=== PATIENT | male | born 1970 | race Caucasian/White ===

== ENCOUNTER 2016-11-08 16:47 | Inpatient (IN) | payer MEDICAID ==
[~2016-11-08] VITALS: Ht 185.4 cm; Wt 88.3 kg
[2016-11-08] MEDS ORDERED: SODIUM CHLORIDE 0.9% 1,000 ML IV ONE ×2 (17:03)
[2016-11-08] MEDS ORDERED: InsuLIN R (HUMAN) 100 UNITS in SODIUM CHL 0.9% 99 ML IV SCH (17:18)
[2016-11-08] MEDS ORDERED: DEXTROSE (50%) 50ML SYRG IV PRN (17:30)
[2016-11-08] MEDS: SODIUM CHLORIDE 0.9% 1,000 ML IV SCH ×2 (17:32→19:00)
[2016-11-08 18:02] LABS: Basophils # (auto) 0 uL; Basophils % (auto) 0.1 % (0.0-2.0); Eosinophils # (auto) 0 uL; Hematocrit 45.4 % (41.0-53.0); Hemoglobin 15.2 g/dL (13.5-17.5); Lymphocytes # (auto) 1.3 uL; Lymphocytes % (auto) 5.3 % (10.0-50.0); Mean Corpuscular Hemoglobin 29.4 pg (28.0-32.0); Mean Corpuscular Hgb Conc. 33.4 g/dL (32.0-36.0); Mean Platelet Volume 10.4 fL (7.4-10.4); Monocytes # (auto) 1.6 uL; Monocytes % (auto) 6.2 % (0.0-12.0); Neutrophils # (auto) 22.3 uL; Neutrophils % (auto) 88.4 % (37.0-80.0); Platelet Count (auto) 386 10^3/uL (140-450); Red Cell Distribution Width 12.4 % (11.6-16.0); SUSPECT VIEW TRANSMISSION; White Blood Cell 25.2 10^3/uL (4.4-10.8)
[2016-11-08] MEDS: ACCU-CHEK COMFORT CURVE STRIP VI SCH ×6 (18:34→23:30)
[2016-11-08 18:37] LABS: Lactic Acid w/Reflex 5.2 mmol/L (0.4-2.0)
[2016-11-08 18:39] LABS: REFLEX LACTIC ACID YES OR NO YES
[2016-11-08 18:50] LABS: Albumin 3.4 g/dL (3.4-5.0); BUN/Creatinine Ratio 18.1; Bilirubin, Total 0.8 mg/dL (0.2-1.0); Calcium 8.6 mg/dL (8.5-10.1); Magnesium 2.5 mg/dL (1.6-2.6); Total Protein 7.4 g/dL (6.4-8.2)
[2016-11-08 18:51] LABS: Potassium 5.8 mmol/L (3.5-5.1)
[2016-11-08] MEDS ORDERED: InsuLIN REG 1unit/0.01ml Soln (100units/ml) IV ONE (19:00)
[2016-11-08] MEDS ORDERED: cloNIDine 0.2 mg/24hr 7DAY PATCH TD ONE (19:00)
[2016-11-08 20:46] LABS: Urine Bilirubin Negative (Negative); Urine Blood Negative /uL (Negative); Urine Color Yellow (Yellow); Urine Hyaline Cast MOD /lpf (0 - 2); Urine Mucus FEW (None Seen); Urine Nitrite Negative (Negative); Urine RBC 1 /hpf (0 - 3); Urine Squamous Epithelial Cell FEW /hpf (<5); Urine Urobilinogen Normal (Negative)
[2016-11-08 20:47] LABS: Urine Glucose 4+ mg/dL (Normal); Urine Ketone 1+ (Negative)
[2016-11-08] MEDS ORDERED: SODIUM CHLORIDE 0.9% 1,000 ML IV SCH (21:18)
[2016-11-09] MEDS ORDERED: PIPERACILLIN-TAZOB 2.25GM 50 ML IV ONE
[2016-11-09] MEDS ORDERED: MORPHINE SULF INJ 2 MG/ML SYRINGE 1ML IV PRN
[2016-11-09] MEDS ORDERED: VANCOMYCIN PER PHARMACY 0 MG IV SCH
[2016-11-09] MEDS ORDERED: NITROGLYCERIN 0.4 MG SL TAB SL PRN
[2016-11-09] MEDS ORDERED: ONDANSETRON HCL 4 MG/2 ML VIAL IV PRN
[2016-11-09] MEDS ORDERED: DEXTROSE (50%) 50ML SYRG IV PRN
[2016-11-09] MEDS ORDERED: ASPirin 81 mg TAB PO ONE
[2016-11-09] MEDS ORDERED: VANCOMYCIN 1GM/250ML D5W 250 ML IV ONE (00:15)
[2016-11-09] MEDS ORDERED: ATENOLOL 25 MG TAB PO ONE (00:15)
[2016-11-09] MEDS ORDERED: cloNIDine HCL 0.1 MG TAB PO PRN (00:15)
[2016-11-09] MEDS: ACCU-CHEK COMFORT CURVE STRIP VI SCH ×18 (00:30→21:31)
[2016-11-09 01:16] LABS: BUN/Creatinine Ratio 21.8; Calcium 7.6 mg/dL (8.5-10.1); Potassium 3.6 mmol/L (3.5-5.1)
[2016-11-09] MEDS ORDERED: InsuLIN REG 1unit/0.01ml Soln (100units/ml) ONE (01:54)
[2016-11-09] MEDS ORDERED: SODIUM CHLORIDE 0.9% 1,000 ML IV SCH (03:52)
[2016-11-09 04:36] LABS: Albumin 3.1 g/dL (3.4-5.0); BUN/Creatinine Ratio 24.4; Bilirubin, Total 0.5 mg/dL (0.2-1.0); Calcium 7.8 mg/dL (8.5-10.1); Potassium 3.7 mmol/L (3.5-5.1); Total Protein 6.7 g/dL (6.4-8.2)
[2016-11-09 05:44] LABS: Hematocrit 40.8 % (41.0-53.0); Hemoglobin 13.6 g/dL (13.5-17.5); Mean Corpuscular Hemoglobin 28.8 pg (28.0-32.0); Mean Corpuscular Hgb Conc. 33.3 g/dL (32.0-36.0); Mean Corpuscular Volume 86.5 fL (80.0-100.0); Mean Platelet Volume 8.8 fL (7.4-10.4); Platelet Count (auto) 344 10^3/uL (140-450); Red Cell Distribution Width 12.9 % (11.6-16.0); SUSPECT VIEW TRANSMISSION; White Blood Cell 19.7 10^3/uL (4.4-10.8)
[2016-11-09] MEDS: SODIUM CHLORIDE 0.9% 1,000 ML IV SCH ×3 (05:54→19:12)
[2016-11-09 05:58] LABS: Metamyelocytes % 0; Myelocytes % 0; Promyelocytes % 0; Reactive Lymphocytes 0
[2016-11-09 05:59] LABS: Hypersegmented Neutrophils Present; RBC Morphology Normal
[2016-11-09] MEDS: PIPERACILLIN-TAZOB 2.25GM 50 ML IV SCH ×4 (06:11→23:13)
[2016-11-09 07:24] LABS: Platelet Estimate Adequate
[2016-11-09] MEDS: LEVOTHYROXINE SODIUM 50 MCG TAB PO SCH (07:30)
[2016-11-09] MEDS ORDERED: ENOXAPARIN SOD 40 MG/0.4 ML SYRINGE SC SCH (10:00)
[2016-11-09] MEDS: ASPirin 81 mg TAB PO SCH (10:01)
[2016-11-09] MEDS: ATENOLOL 25 MG TAB PO SCH ×2 (10:02→21:26)
[2016-11-09] MEDS: ENOXAPARIN SOD 30 MG/0.3 ML SYRINGE SC SCH (10:02)
[2016-11-09] MEDS: LISINOPRIL 20 MG TAB PO SCH (10:02)
[2016-11-09 12:02] LABS: Amylase 48 U/L (25-115)
[2016-11-09 12:43] LABS: BUN/Creatinine Ratio 31.9; Calcium 7.8 mg/dL (8.5-10.1); Potassium 3.4 mmol/L (3.5-5.1)
[2016-11-09] MEDS ORDERED: INSULIN DETEMIR(LEVEMIR) 1unit/0.01ml Soln (100units/ml) SC SCH (15:30)
[2016-11-09] MEDS ORDERED: DEXTROSE (50%) 50ML SYRG IV ONE (15:45)
[2016-11-09] MEDS ORDERED: POTASSIUM CHL 20 Meq TABLET PO ONE (15:45)
[2016-11-09] MEDS ORDERED: INSULIN DETEMIR(LEVEMIR) 1unit/0.01ml Soln (100units/ml) SC ONE (16:30)
[2016-11-09] MEDS: InsuLIN REG 1unit/0.01ml Soln (100units/ml) SC SCH ×2 (16:55→21:36)
[2016-11-09 18:45] LABS: BUN/Creatinine Ratio 37.7; Calcium 7.6 mg/dL (8.5-10.1); Potassium 3.8 mmol/L (3.5-5.1)
[2016-11-09 20:30] VITALS: BP 104/55
[2016-11-09 21:30] VITALS: BP 104/55
[2016-11-10 00:48] VITALS: BP 104/55
[2016-11-10 00:49] LABS: BUN/Creatinine Ratio 33.6; Calcium 7.7 mg/dL (8.5-10.1)
[2016-11-10] MEDS ORDERED: VANCOMYCIN 1GM/250ML D5W 250 ML IV SCH (01:00)
[2016-11-10] MEDS ORDERED: INSLANTI SC (01:56)
[2016-11-10] MEDS ORDERED: INSREG3 IV (01:56)
[2016-11-10 05:00] VITALS: BP 139/70
[2016-11-10] MEDS: PIPERACILLIN-TAZOB 2.25GM 50 ML IV SCH ×3 (05:17→16:55)
[2016-11-10 05:53] LABS: Basophils # (auto) 0 uL; Basophils % (auto) 0.4 % (0.0-2.0); Eosinophils # (auto) 0 uL; Eosinophils % (auto) 0.1 % (0.0-7.0); Hematocrit 39.3 % (41.0-53.0); Hemoglobin 12.9 g/dL (13.5-17.5); Lymphocytes # (auto) 1.2 uL; Lymphocytes % (auto) 9.4 % (10.0-50.0); Mean Corpuscular Hemoglobin 28.7 pg (28.0-32.0); Mean Corpuscular Hgb Conc. 32.7 g/dL (32.0-36.0); Mean Corpuscular Volume 87.9 fL (80.0-100.0); Mean Platelet Volume 8.9 fL (7.4-10.4); Monocytes # (auto) 0.6 uL; Monocytes % (auto) 4.5 % (0.0-12.0); Neutrophils # (auto) 11.2 uL; Neutrophils % (auto) 85.6 % (37.0-80.0); Platelet Count (auto) 287 10^3/uL (140-450); Red Cell Distribution Width 13.1 % (11.6-16.0); White Blood Cell 13.1 10^3/uL (4.4-10.8)
[2016-11-10 06:13] LABS: Albumin 2.9 g/dL (3.4-5.0); BUN/Creatinine Ratio 36.4; Bilirubin, Total 0.5 mg/dL (0.2-1.0); Calcium 7.7 mg/dL (8.5-10.1); Phosphorus 1.7 mg/dL (2.5-4.90); Potassium 3.9 mmol/L (3.5-5.1); Total Protein 6.2 g/dL (6.4-8.2)
[2016-11-10] MEDS: ACCU-CHEK COMFORT CURVE STRIP VI SCH ×3 (06:18→16:46)
[2016-11-10] MEDS: LEVOTHYROXINE SODIUM 50 MCG TAB PO SCH (06:18)
[2016-11-10] MEDS: InsuLIN REG 1unit/0.01ml Soln (100units/ml) SC SCH ×3 (06:19→16:55)
[2016-11-10] MEDS: SODIUM CHLORIDE 0.9% 1,000 ML IV SCH ×3 (06:48→15:06)
[2016-11-10] MEDS ORDERED: INSULIN DETEMIR(LEVEMIR) 1unit/0.01ml Soln (100units/ml) SC SCH (07:00)
[2016-11-10 09:00] VITALS: BP 159/85
[2016-11-10] MEDS: ENOXAPARIN SOD 30 MG/0.3 ML SYRINGE SC SCH (09:33)
[2016-11-10] MEDS: ASPirin 81 mg TAB PO SCH (09:33)
[2016-11-10] MEDS: LISINOPRIL 20 MG TAB PO SCH (09:35)
[2016-11-10] MEDS: ATENOLOL 25 MG TAB PO SCH (09:35)
[2016-11-10] MEDS ORDERED: POTASSIUM PHOSPHATE 44 MEQ in SODIUM CHL 0.9% 250 ML IV ONE (11:00)
[2016-11-10] MEDS ORDERED: SODIUM PHOSPH 40 MEQ (30MMOL) IN NS 250 ML IV ONE (12:00)
[2016-11-10 13:00] VITALS: BP 154/91
[2016-11-10] MEDS ORDERED: INSULIN DETEMIR(LEVEMIR) 1unit/0.01ml Soln (100units/ml) SC ONE (15:30)
[2016-11-10 17:06] VITALS: BP 145/86
== END 2016-11-10 19:30 | disposition home or self-care (01) | DRG 420 ==
LOC: ER 16:53 → TELE 16:54 → TELE-EAST 11-09 20:30
PROVIDERS: ADMIT Nurse Practitioner; ATTEND Internal Medicine
DX: E10.10 Type 1 diabetes mellitus with ketoacidosis without coma (principal); N17.0 Acute kidney failure with tubular necrosis; G92 Toxic encephalopathy; E87.5 Hyperkalemia; D72.829 Elevated white blood cell count, unspecified; E03.9 Hypothyroidism, unspecified; E78.5 Hyperlipidemia, unspecified; E86.0 Dehydration; E10.22 Type 1 diabetes mellitus with diabetic chronic kidney disease; E83.39 Other disorders of phosphorus metabolism; F15.10 Other stimulant abuse, uncomplicated; I12.9 Hypertensive chronic kidney disease with stage 1 through stage 4 chronic kidney disease, or unspecified chronic kidney disease; N18.9 Chronic kidney disease, unspecified; Z91.19 Patient's noncompliance with other medical treatment and regimen
CPT/HCPCS: 36415; 36600; 51702; 70450; 71010; 74176; 76775; 80048; 80053; 80202; 80307; 81001; 82010; 82150; 82570; 82805; 82962; 83036; 83605; 83690; 83735; 83930; 84100; 84132; 84156; 84300; 84484; 85007; 85025; 85027; 87040; 93005; 96361; 96365; 96375; 99291; J1815; J2405; J2543

== ENCOUNTER 2017-08-13 01:48 | Inpatient (IN) | payer MEDICAID ==
[~2017-08-13] VITALS: Ht 185.4 cm; Wt 90.7 kg
[~2017-08-13 01:48] MED LIST: INSLANTI SC; INSREG3 IV; LEVO25TA6 PO
[2017-08-13] MEDS ORDERED: SODIUM CHLORIDE 0.9% 1,000 ML IV ONE (03:00)
[2017-08-13] MEDS ORDERED: InsuLIN REG 1unit/0.01ml Soln (100units/ml) IV ONE (03:00)
[2017-08-13 03:15] LABS: Albumin 2.7 g/dL (3.4-5.0); BUN/Creatinine Ratio 22.4; Calcium 9.2 mg/dL (8.5-10.1); Potassium 5.5 mmol/L (3.5-5.1); Total Protein 7.6 g/dL (6.4-8.2)
[2017-08-13 03:39] LABS: Basophils # (auto) 0.1 uL; Basophils % (auto) 0.4 % (0.0-2.0); Eosinophils # (auto) 0 uL; Eosinophils % (auto) 0.1 % (0.0-7.0); Hematocrit 43.6 % (41.0-53.0); Hemoglobin 14.5 g/dL (13.5-17.5); Lymphocytes # (auto) 0.6 uL; Lymphocytes % (auto) 4.2 % (10.0-50.0); Mean Corpuscular Hemoglobin 28.9 pg (28.0-32.0); Mean Corpuscular Hgb Conc. 33.1 g/dL (32.0-36.0); Mean Corpuscular Volume 87.4 fL (80.0-100.0); Monocytes # (auto) 0.3 uL; Monocytes % (auto) 2.2 % (0.0-12.0); Neutrophils % (auto) 93.1 % (37.0-80.0); Platelet Count (auto) 398 10^3/uL (140-450); Red Blood Cells 4.99 10^6/uL (4.5-5.90); Red Cell Distribution Width 12.3 % (11.8-14.3); White Blood Cell 15.1 10^3/uL (4.4-10.8)
[2017-08-13] MEDS ORDERED: InsuLIN R (HUMAN) 100 UNITS in SODIUM CHL 0.9% 99 ML IV SCH (04:14)
[2017-08-13] MEDS ORDERED: DEXTROSE (50%) 50ML SYRG IV PRN ×2 (04:15→16:45)
[2017-08-13] MEDS: SODIUM CHLORIDE 0.9% 1,000 ML IV SCH ×4 (04:41→16:54)
[2017-08-13] MEDS: ACCU-CHEK COMFORT CURVE STRIP VI SCH ×8 (04:41→15:40)
[2017-08-13 06:33] LABS: BUN/Creatinine Ratio 26.3; Calcium 8.5 mg/dL (8.5-10.1)
[2017-08-13 06:38] LABS: Phosphorus 3.4 mg/dL (2.5-4.90)
[2017-08-13 06:41] LABS: Alcohol, Urine < 3.0 mg/dL (0-5); Amphetamine Screen, Urine POSITIVE (NEGATIVE); Barbiturate Scree,Urine NEGATIVE (NEGATIVE); Benzodiazephine Screen, Urine NEGATIVE (NEGATIVE); Cannabinoid Screen, Urine NEGATIVE (NEGATIVE); Cocaine Screen, Urine NEGATIVE (NEGATIVE); Opiate Scree,Urine NEGATIVE (NEGATIVE); Phencyclidine Screen, Urine NEGATIVE (NEGATIVE)
[2017-08-13] MEDS ORDERED: NITROGLYCERIN 0.4 MG SL TAB SL PRN (06:45)
[2017-08-13] MEDS ORDERED: ONDANSETRON HCL 4 MG/2 ML VIAL IV PRN (06:45)
[2017-08-13] MEDS ORDERED: MORPHINE SULFATE 4 MG/ML SYR/VIAL IV PRN (07:15)
[2017-08-13 07:35] LABS: Urine Bacteria NONE SEEN /hpf (None Seen); Urine Blood Negative /uL (Negative); Urine Mucus FEW (None Seen); Urine Specific Gravity 1.021 (1.001-1.035); Urine WBC 4 /hpf (0 - 3)
[2017-08-13] MEDS ORDERED: cefTRIAXone 1GM/10ml IVPUSH 10 ML IV SCH (08:00)
[2017-08-13] MEDS ORDERED: LEVOTHYROXINE SODIUM 25 MCG TAB PO SCH (08:00)
[2017-08-13] MEDS ORDERED: SODIUM CHLORIDE 0.9% 1,000 ML IV SCH (08:14)
[2017-08-13] MEDS ORDERED: LISINOPRIL 10 MG TAB PO SCH (10:00)
[2017-08-13 10:43] LABS: Calcium 8.4 mg/dL (8.5-10.1); Potassium 3.9 mmol/L (3.5-5.1)
[2017-08-13 16:52] VITALS: BP 120/82
[2017-08-13] MEDS ORDERED: ACCU-CHEK COMFORT CURVE STRIP VI SCH (17:00)
[2017-08-13] MEDS ORDERED: InsuLIN REG 1unit/0.01ml Soln (100units/ml) SC SCH ×2 (17:00→22:00)
[2017-08-13 19:03] VITALS: BP 151/86
== END 2017-08-13 20:00 | disposition home or self-care (01) | DRG 469 ==
LOC: ER 01:48 → EDUNIT# 01:48 → EDBD 01:48 → TELE 01:49
PROVIDERS: ADMIT Nurse Practitioner Family; ATTEND Nurse Practitioner Family
DX: N17.9 Acute kidney failure, unspecified (principal); G93.41 Metabolic encephalopathy; E43 Unspecified severe protein-calorie malnutrition; E10.10 Type 1 diabetes mellitus with ketoacidosis without coma; R65.10 Systemic inflammatory response syndrome (SIRS) of non-infectious origin without acute organ dysfunction; E87.5 Hyperkalemia; E87.1 Hypo-osmolality and hyponatremia; D72.829 Elevated white blood cell count, unspecified; E03.9 Hypothyroidism, unspecified; F15.90 Other stimulant use, unspecified, uncomplicated; F17.210 Nicotine dependence, cigarettes, uncomplicated; I10 Essential (primary) hypertension; Z83.3 Family history of diabetes mellitus; Z91.14 Patient's other noncompliance with medication regimen; Z91.19 Patient's noncompliance with other medical treatment and regimen; Z79.899 Other long term (current) drug therapy; Z71.51 Drug abuse counseling and surveillance of drug abuser
CPT/HCPCS: 36415; 36600; 71045; 74176; 80048; 80053; 80307; 81001; 82010; 82805; 82962; 83605; 83735; 83880; 83930; 84100; 84443; 85025; 87040; 93005; 96361; 96365; 96372; 96375; J1815

== ENCOUNTER 2018-04-21 18:12 | Inpatient (IN) | payer MEDICAID ==
[~2018-04-21] VITALS: Ht 188 cm; Wt 86.0 kg
[2018-04-21] MEDS ORDERED: SODIUM CHLORIDE 0.9% 1,000 ML IV ONE (18:36)
[2018-04-21] MEDS ORDERED: InsuLIN REG 1unit/0.01ml Soln (100units/ml) IV ONE (19:00)
[2018-04-21] MEDS ORDERED: SODIUM CHLORIDE 0.9% 3,000 ML IV ONE (19:00)
[2018-04-21] MEDS ORDERED: NALOXONE HCL 0.4 MG/ML VIAL IV ONE (19:30)
[2018-04-21 19:43] LABS: Basophils # (auto) 0.2 uL; Basophils % (auto) 1.1 % (0.0-2.0); Eosinophils # (auto) 0 uL; Eosinophils % (auto) 0.1 % (0.0-7.0); Hematocrit 44.8 % (41.0-53.0); Lymphocytes # (auto) 0.6 uL; Lymphocytes % (auto) 3.5 % (10.0-50.0); Mean Corpuscular Hemoglobin 29.8 pg (28.0-32.0); Mean Corpuscular Hgb Conc. 33.5 g/dL (32.0-36.0); Mean Corpuscular Volume 88.8 fL (80.0-100.0); Monocytes # (auto) 0.8 uL; Monocytes % (auto) 4.1 % (0.0-12.0); Neutrophils # (auto) 16.6 uL; Neutrophils % (auto) 91.2 % (37.0-80.0); Platelet Count (auto) 330 10^3/uL (140-450); Red Blood Cells 5.04 10^6/uL (4.5-5.90); White Blood Cell 18.3 10^3/uL (4.4-10.8)
[2018-04-21 19:59] LABS: Albumin 3.2 g/dL (3.4-5.0); Calcium 8.6 mg/dL (8.5-10.1); Potassium 4.8 mmol/L (3.5-5.1)
[2018-04-21 20:08] LABS: BUN/Creatinine Ratio 28.6; Bilirubin, Total 0.5 mg/dL (0.2-1.0); Total Protein 7.7 g/dL (6.4-8.2)
[2018-04-21] MEDS ORDERED: LABETALOL HCL 5 MG/ML ML 20ML VIAL IV ONE (20:15)
[2018-04-21] MEDS ORDERED: cefTRIAXone 1GM/50ML D5W 50 ML IV ONE (20:45)
[2018-04-21] MEDS ORDERED: NITROGLYCERIN 0.4 MG SL TAB SL PRN (21:30)
[2018-04-21] MEDS ORDERED: TEMAZEPAM 15 MG CAP PO PRN (21:30)
[2018-04-21] MEDS ORDERED: MORPHINE SULFATE 4 MG/ML SYR/VIAL IV PRN (21:30)
[2018-04-21] MEDS ORDERED: ONDANSETRON HCL 4 MG/2 ML VIAL IV PRN (21:30)
[2018-04-21] MEDS ORDERED: DEXTROSE (50%) 50ML SYRG IV PRN (21:30)
[2018-04-21] MEDS: SODIUM CHLORIDE 0.9% 1,000 ML IV SCH (21:30)
[2018-04-21] MEDS ORDERED: ACETAMINOPHEN 325 MG TAB PO PRN (21:30)
[2018-04-21 22:38] LABS: Urine Bacteria NONE SEEN /hpf (None Seen); Urine Blood Negative /uL (Negative); Urine Specific Gravity 1.024 (1.001-1.035); Urine WBC 1 /hpf (0 - 3)
[2018-04-21 22:56] LABS: Alcohol, Urine < 3.0 mg/dL (0-5); Amphetamine Screen, Urine POSITIVE (NEGATIVE); Barbiturate Scree,Urine NEGATIVE (NEGATIVE); Benzodiazephine Screen, Urine NEGATIVE (NEGATIVE); Cannabinoid Screen, Urine NEGATIVE (NEGATIVE); Cocaine Screen, Urine NEGATIVE (NEGATIVE); Opiate Scree,Urine NEGATIVE (NEGATIVE); Phencyclidine Screen, Urine NEGATIVE (NEGATIVE)
[2018-04-21] MEDS: FAMOTIDINE 20 MG TAB PO SCH (23:54)
[2018-04-22] MEDS: cloNIDine HCL 0.1 MG TAB PO PRN ×2 (00:10→06:51)
[2018-04-22] MEDS ORDERED: hydrALAZINE HCL 20 MG/ML VL IV ONE (00:45)
[2018-04-22] MEDS: ACCU-CHEK COMFORT CURVE STRIP VI SCH ×7 (01:04→23:47)
[2018-04-22] MEDS: InsuLIN REG 1unit/0.01ml Soln (100units/ml) SC SCH ×7 (01:04→23:46)
[2018-04-22 03:44] LABS: Basophils # (auto) 0.1 uL; Basophils % (auto) 0.3 % (0.0-2.0); Eosinophils # (auto) 0 uL; Eosinophils % (auto) 0.2 % (0.0-7.0); Hematocrit 41.2 % (41.0-53.0); Hemoglobin 13.9 g/dL (13.5-17.5); Lymphocytes # (auto) 1.6 uL; Mean Corpuscular Hemoglobin 29.1 pg (28.0-32.0); Mean Corpuscular Hgb Conc. 33.7 g/dL (32.0-36.0); Mean Corpuscular Volume 86.1 fL (80.0-100.0); Monocytes # (auto) 0.6 uL; Monocytes % (auto) 3.2 % (0.0-12.0); Neutrophils # (auto) 15.2 uL; Neutrophils % (auto) 87.3 % (37.0-80.0); Nucleated Red Blood Cells % 0.1 %; Platelet Count (auto) 312 10^3/uL (140-450); Red Blood Cells 4.78 10^6/uL (4.5-5.90); Red Cell Distribution Width 13.5 % (11.8-14.3); White Blood Cell 17.5 10^3/uL (4.4-10.8)
[2018-04-22 04:01] LABS: Albumin 3.2 g/dL (3.4-5.0); BUN/Creatinine Ratio 34.8; Calcium 8.3 mg/dL (8.5-10.1); Potassium 4.1 mmol/L (3.5-5.1)
[2018-04-22 04:03] LABS: Bilirubin, Total 0.4 mg/dL (0.2-1.0); Total Protein 7.2 g/dL (6.4-8.2)
[2018-04-22] MEDS: LEVOTHYROXINE SODIUM 25 MCG TAB PO SCH (06:42)
[2018-04-22] MEDS: SODIUM CHLORIDE 0.9% 1,000 ML IV SCH ×2 (07:30→17:30)
[2018-04-22] MEDS: cefTRIAXone 1GM/50ML D5W 50 ML IV SCH (09:00)
[2018-04-22] MEDS ORDERED: LISINOPRIL 20 MG TAB PO SCH (10:00)
[2018-04-22 16:59] VITALS: BP 161/92
[2018-04-22] MEDS: FAMOTIDINE 20 MG TAB PO SCH (21:42)
[2018-04-22 22:00] VITALS: BP 129/72
[2018-04-22] MEDS ORDERED: INSULIN LANTUS (GLARGINE) 1 /0.01ml (100units/ml) SC SCH (22:00)
[2018-04-23] MEDS: SODIUM CHLORIDE 0.9% 1,000 ML IV SCH (03:30)
[2018-04-23] MEDS: ACCU-CHEK COMFORT CURVE STRIP VI SCH ×2 (04:00→07:57)
[2018-04-23] MEDS: InsuLIN REG 1unit/0.01ml Soln (100units/ml) SC SCH ×2 (04:00→08:00)
[2018-04-23 05:28] VITALS: BP 148/71
[2018-04-23 06:01] LABS: Basophils # (auto) 0 uL; Basophils % (auto) 0.5 % (0.0-2.0); Eosinophils # (auto) 0.1 uL; Eosinophils % (auto) 1.2 % (0.0-7.0); Hematocrit 38.1 % (41.0-53.0); Hemoglobin 12.9 g/dL (13.5-17.5); Lymphocytes # (auto) 1.5 uL; Lymphocytes % (auto) 19.3 % (10.0-50.0); Mean Corpuscular Hemoglobin 29.7 pg (28.0-32.0); Mean Corpuscular Hgb Conc. 33.8 g/dL (32.0-36.0); Monocytes # (auto) 0.5 uL; Monocytes % (auto) 6.5 % (0.0-12.0); Neutrophils # (auto) 5.7 uL; Neutrophils % (auto) 72.5 % (37.0-80.0); Nucleated Red Blood Cells % 0.1 %; Platelet Count (auto) 236 10^3/uL (140-450); Red Blood Cells 4.33 10^6/uL (4.5-5.90); Red Cell Distribution Width 13.3 % (11.8-14.3); White Blood Cell 7.8 10^3/uL (4.4-10.8)
[2018-04-23 06:17] LABS: Magnesium 1.7 mg/dL (1.6-2.6); Potassium 3.7 mmol/L (3.5-5.1)
[2018-04-23 06:23] LABS: BUN/Creatinine Ratio 32.9
[2018-04-23] MEDS: LEVOTHYROXINE SODIUM 25 MCG TAB PO SCH (06:43)
[2018-04-23] MEDS: cefTRIAXone 1GM/50ML D5W 50 ML IV SCH (07:55)
[2018-04-23 09:00] VITALS: BP 139/76
[2018-04-23] MEDS: MAGNESIUM SULFATE 1GM/100ML 100 ML IV SCH ×2 (09:00→09:37)
[2018-04-23] MEDS ORDERED: DOXYCYCLINE 100 MG TAB/CAP PO ONE (09:15)
[2018-04-23 09:48] VITALS: BP 163/99
[2018-04-23] MEDS ORDERED: FAMOTIDINE 20 MG TAB PO SCH (10:00)
== END 2018-04-23 11:20 | disposition home or self-care (01) | DRG 469 ==
LOC: EDBD 18:12 → ER 18:15 → TELE 18:16 → TELE-EAST 04-22 14:59
PROVIDERS: ADMIT Nurse Practitioner; ATTEND Nurse Practitioner
DX: N17.0 Acute kidney failure with tubular necrosis (principal); G92 Toxic encephalopathy; E11.649 Type 2 diabetes mellitus with hypoglycemia without coma; E11.42 Type 2 diabetes mellitus with diabetic polyneuropathy; E11.65 Type 2 diabetes mellitus with hyperglycemia; E86.0 Dehydration; D72.829 Elevated white blood cell count, unspecified; F15.10 Other stimulant abuse, uncomplicated; F17.210 Nicotine dependence, cigarettes, uncomplicated; I10 Essential (primary) hypertension; Z79.4 Long term (current) use of insulin; Z83.3 Family history of diabetes mellitus; Z91.19 Patient's noncompliance with other medical treatment and regimen; Z71.6 Tobacco abuse counseling
CPT/HCPCS: 36415; 36600; 70450; 71045; 80048; 80053; 80307; 81001; 82010; 82805; 82962; 83036; 83605; 83735; 84075; 85025; 87040; 93005; 94761; 96361; 96374; 96375; J0696; J1815

== ENCOUNTER 2019-04-24 19:31 | Emergency (ER) | payer MEDICAID ==
[~2019-04-24] VITALS: Ht 195.6 cm; Wt 97.5 kg
[2019-04-24 23:17] VITALS: BP 171/92
== END 2019-04-24 23:48 | disposition home or self-care (01) ==
LOC: ER 19:32
DX: E10.9 Type 1 diabetes mellitus without complications (principal); I10 Essential (primary) hypertension; F17.210 Nicotine dependence, cigarettes, uncomplicated; F15.10 Other stimulant abuse, uncomplicated; Z76.0 Encounter for issue of repeat prescription
CPT/HCPCS: 82962

== ENCOUNTER 2019-07-26 14:46 | Inpatient (IN) | payer OTHER, MEDICAID ==
[~2019-07-26] VITALS: Ht 195.6 cm; Wt 95.7 kg
[~2019-07-26 14:46] MED LIST changes: +AML5T PO; +BLOO1KIT60 XX; +GABA300C10 PO; +INSREGI SC; +INSU-831 XX; +INSU32MI9 XX; +LAB200T PO; +LEVO100T8 PO; +LISI-646 PO; +PANT40TA2 PO
[2019-07-26 15:45] LABS: Basophils # (auto) 0 uL; Basophils % (auto) 0.3 % (0.0-2.0); Eosinophils # (auto) 0 uL; Eosinophils % (auto) 0.1 % (0.0-7.0); Hematocrit 34.1 % (41.0-53.0); Hemoglobin 11.6 g/dL (13.5-17.5); Lymphocytes # (auto) 0.7 uL; Lymphocytes % (auto) 7.8 % (10.0-50.0); Mean Corpuscular Hemoglobin 28.6 pg (28.0-32.0); Mean Corpuscular Hgb Conc. 34.1 g/dL (32.0-36.0); Mean Corpuscular Volume 83.7 fL (80.0-100.0); Monocytes % (auto) 10.4 % (0.0-12.0); Neutrophils # (auto) 7.6 uL; Neutrophils % (auto) 81.4 % (37.0-80.0); Platelet Count (auto) 283 10^3/uL (140-450); Red Blood Cells 4.08 10^6/uL (4.5-5.90); Red Cell Distribution Width 13.4 % (11.8-14.3); White Blood Cell 9.4 10^3/uL (4.4-10.8)
[2019-07-26 16:08] LABS: Albumin 2.8 g/dL (3.4-5.0); Calcium 8.6 mg/dL (8.5-10.1); Potassium 3.8 mmol/L (3.5-5.1)
[2019-07-26 16:16] LABS: BUN/Creatinine Ratio 21.7; Bilirubin, Total 0.3 mg/dL (0.2-1.0); Total Protein 7.2 g/dL (6.4-8.2)
[2019-07-26] MEDS ORDERED: SODIUM CHLORIDE 0.9% 1,000 ML IVB ONE (17:05)
[2019-07-26] MEDS ORDERED: CLINDAMYCIN 600MG IV 50 ML IV ONE (17:15)
[2019-07-26] MEDS ORDERED: PROMETHAZINE HCL 25 MG/ML 1ML IV PRN (19:00)
[2019-07-26] MEDS ORDERED: DEXTROSE (50%) 50ML SYRG IV PRN (19:00)
[2019-07-26] MEDS ORDERED: traMADol HCL 50 MG TAB PO PRN (19:00)
[2019-07-26] MEDS ORDERED: TEMAZEPAM 15 MG CAP PO PRN (19:00)
[2019-07-26] MEDS ORDERED: LEVOFLOXACIN 500MG 100 ML IV ONE (19:00)
[2019-07-26] MEDS ORDERED: LACTULOSE 20Gm/30ML SOLN PO PRN (19:00)
[2019-07-26] MEDS: SODIUM CHLORIDE 0.9% 1,000 ML IV SCH (19:41)
[2019-07-26] MEDS: ACETAMINOPHEN 500 MG TAB PO PRN (19:42)
[2019-07-26] MEDS: ACETAMINOPHEN 325 MG TAB PO ONE ×2 (19:45→22:10)
[2019-07-26 22:00] VITALS: BP 128/73
[2019-07-26] MEDS: InsuLIN REG 1unit/0.01ml Soln (100units/ml) SC SCH (22:00)
[2019-07-26] MEDS: LABETALOL HCL 200 MG TAB PO SCH (22:00)
[2019-07-26] MEDS: INSULIN LANTUS (GLARGINE) 1 /0.01ml (100units/ml) SC SCH (22:00)
[2019-07-26] MEDS: CLINDAMYCIN 600MG IV 50 ML IV SCH (22:10)
[2019-07-26] MEDS: GABAPENTIN 300 MG CAP PO SCH (22:10)
[2019-07-26] MEDS: ACCU-CHEK COMFORT CURVE STRIP VI SCH (22:11)
[2019-07-26 22:51] VITALS: BP 128/73
[2019-07-27] MEDS: SODIUM CHLORIDE 0.9% 1,000 ML IV SCH ×2 (04:47→13:08)
[2019-07-27 05:00] VITALS: BP 150/79
[2019-07-27] MEDS: CLINDAMYCIN 600MG IV 50 ML IV SCH ×2 (05:28→13:04)
[2019-07-27] MEDS: ACCU-CHEK COMFORT CURVE STRIP VI SCH ×3 (06:02→16:57)
[2019-07-27] MEDS: InsuLIN REG 1unit/0.01ml Soln (100units/ml) SC SCH ×3 (06:02→16:57)
[2019-07-27 06:52] LABS: Albumin 2.2 g/dL (3.4-5.0); Calcium 7.9 mg/dL (8.5-10.1); Potassium 3.8 mmol/L (3.5-5.1)
[2019-07-27 06:55] LABS: BUN/Creatinine Ratio 30.6; Bilirubin, Total 0.2 mg/dL (0.2-1.0); Total Protein 6.2 g/dL (6.4-8.2)
[2019-07-27] MEDS ORDERED: LEVOTHYROXINE SODIUM 100 MCG TAB PO SCH (07:00)
[2019-07-27 07:55] LABS: Basophils # (auto) 0 uL; Basophils % (auto) 0.4 % (0.0-2.0); Eosinophils # (auto) 0.1 uL; Eosinophils % (auto) 1.2 % (0.0-7.0); Hematocrit 31.4 % (41.0-53.0); Hemoglobin 10.7 g/dL (13.5-17.5); Lymphocytes # (auto) 0.8 uL; Lymphocytes % (auto) 10.7 % (10.0-50.0); Mean Corpuscular Hemoglobin 28.6 pg (28.0-32.0); Mean Corpuscular Volume 84.2 fL (80.0-100.0); Monocytes # (auto) 0.9 uL; Neutrophils # (auto) 5.4 uL; Neutrophils % (auto) 74.7 % (37.0-80.0); Nucleated Red Blood Cells % 0.1 %; Platelet Count (auto) 264 10^3/uL (140-450); Red Blood Cells 3.72 10^6/uL (4.5-5.90); Red Cell Distribution Width 13.5 % (11.8-14.3); White Blood Cell 7.2 10^3/uL (4.4-10.8)
[2019-07-27 09:00] VITALS: BP 133/70
[2019-07-27] MEDS: LABETALOL HCL 200 MG TAB PO SCH (09:03)
[2019-07-27] MEDS: GABAPENTIN 300 MG CAP PO SCH (09:04)
[2019-07-27] MEDS: INSULIN LANTUS (GLARGINE) 1 /0.01ml (100units/ml) SC SCH (09:05)
[2019-07-27] MEDS ORDERED: PANTOPRAZOLE 40 MG TAB PO SCH (10:00)
[2019-07-27] MEDS ORDERED: amLODIPine BESYLATE 5 MG TAB PO SCH (10:00)
[2019-07-27] MEDS ORDERED: LEVOFLOXACIN 500MG 100 ML IV SCH (10:00)
[2019-07-27] MEDS ORDERED: LISINOPRIL 20 MG TAB PO SCH (10:00)
[2019-07-27] MEDS ORDERED: ENOXAPARIN SOD 40 MG/0.4 ML SYRINGE SC SCH (10:00)
[2019-07-27 13:00] VITALS: BP 148/96
[2019-07-27] MEDS ORDERED: guaiFENesin-DM 100/10mg/5ml SYR PO PRN (16:45)
[2019-07-27] MEDS ORDERED: hydrALAZINE HCL 20 MG/ML VL IV PRN (16:45)
[2019-07-27] MEDS: ACETAMINOPHEN 500 MG TAB PO PRN (16:58)
[2019-07-27 17:22] VITALS: BP 170/87
== END 2019-07-27 20:45 | disposition short-term general hospital (02) | DRG 300 ==
LOC: ER 14:46 → WEST WING 14:47
PROVIDERS: ADMIT Internal Medicine; ATTEND Internal Medicine
DX: E11.52 Type 2 diabetes mellitus with diabetic peripheral angiopathy with gangrene (principal); M86.8X7 Other osteomyelitis, ankle and foot; E11.69 Type 2 diabetes mellitus with other specified complication; E03.9 Hypothyroidism, unspecified; E11.42 Type 2 diabetes mellitus with diabetic polyneuropathy; E11.621 Type 2 diabetes mellitus with foot ulcer; L97.519 Non-pressure chronic ulcer of other part of right foot with unspecified severity; E78.5 Hyperlipidemia, unspecified; F17.210 Nicotine dependence, cigarettes, uncomplicated; I10 Essential (primary) hypertension; S91.106A Unspecified open wound of unspecified lesser toe(s) without damage to nail, initial encounter; E11.628 Type 2 diabetes mellitus with other skin complications; E11.40 Type 2 diabetes mellitus with diabetic neuropathy, unspecified; X58.XXXA Exposure to other specified factors, initial encounter; Y93.89 Activity, other specified; L03.031 Cellulitis of right toe; Z83.3 Family history of diabetes mellitus; Z80.0 Family history of malignant neoplasm of digestive organs; Z82.49 Family history of ischemic heart disease and other diseases of the circulatory system; Z85.07 Personal history of malignant neoplasm of pancreas; Z79.4 Long term (current) use of insulin; Y92.89 Other specified places as the place of occurrence of the external cause
CPT/HCPCS: 36415; 71045; 73630; 73718; 80053; 82962; 83036; 83605; 85025; 85652; 87040; 87077; 87186; 87205; 93926; 96374; G0378; J1815; J1956; J3490

== ENCOUNTER 2020-08-06 17:07 | Inpatient (IN) | payer OTHER, MEDICAID ==
[~2020-08-06] VITALS: Ht 182.9 cm; Wt 105.0 kg
[~2020-08-06 17:07] MED LIST changes: -LAB200T PO; +LABE200T6 PO
[2020-08-06 18:01] LABS: Calcium 7.5 mg/dL (8.5-10.1); Magnesium 2.8 mg/dL (1.6-2.6)
[2020-08-06 18:05] LABS: Bilirubin, Total 0.4 mg/dL (0.2-1.0); Eosinophils # (auto) 0 10 ^3/uL (0-0.8); Hemoglobin 10.9 g/dL (13.5-17.5); Lymphocytes # (auto) 0.6 10 ^3/uL (0.4-5.4); Monocytes # (auto) 0.9 10 ^3/uL (0-1.3); Monocytes % (auto) 5.1 % (0.0-12.0); Total Protein 6.8 g/dL (6.4-8.2)
[2020-08-06 18:07] LABS: Basophils # (auto) 0 10 ^3/uL (0-0.2); Basophils % (auto) 0.1 % (0.0-2.0); Eosinophils % (auto) 0.2 % (0.0-7.0); Hematocrit 37.3 % (41.0-53.0); Lymphocytes % (auto) 3.2 % (10.0-50.0); Mean Corpuscular Hemoglobin 28.9 pg (28.0-32.0); Mean Corpuscular Hgb Conc. 29.2 g/dL (32.0-36.0); Neutrophils % (auto) 91.4 % (37.0-80.0); Nucleated Red Blood Cells % 0.1 %; Platelet Count (auto) 309 10^3/uL (140-450); Red Blood Cells 3.76 10^6/uL (4.5-5.90); Red Cell Distribution Width 13.7 % (11.8-14.3); White Blood Cell 17.5 10^3/uL (4.4-10.8)
[2020-08-06 18:08] LABS: Lactic Acid w/Reflex 4.5 mmol/L (0.4-2.0)
[2020-08-06 18:15] LABS: Alcohol, Urine < 3.0 mg/dL (0-10); Amphetamine Screen, Urine POSITIVE (NEGATIVE); Barbiturate Scree,Urine NEGATIVE (NEGATIVE); Benzodiazephine Screen, Urine NEGATIVE (NEGATIVE); Cannabinoid Screen, Urine NEGATIVE (NEGATIVE); Cocaine Screen, Urine NEGATIVE (NEGATIVE); Phencyclidine Screen, Urine NEGATIVE (NEGATIVE)
[2020-08-06] MEDS ORDERED: SODIUM CHLORIDE 0.9% 2,000 ML IV ONE (18:15)
[2020-08-06 18:23] LABS: Opiate Scree,Urine NEGATIVE (NEGATIVE)
[2020-08-06 18:31] LABS: BUN/Creatinine Ratio 20.5; Potassium 6.2 mmol/L (3.5-5.1)
[2020-08-06 18:32] LABS: Urine Bacteria FEW /hpf (None Seen); Urine Blood Negative /uL (Negative); Urine Hyaline Cast FEW /lpf (0 - 2); Urine Specific Gravity 1.016 (1.001-1.035); Urine WBC 2 /hpf (0 - 3)
[2020-08-06 18:41] LABS: INR 1.07 (0.9-1.15); Partial Thromboplastin Time 25.2 sec (23.0-31.2)
[2020-08-06] MEDS ORDERED: DEXTROSE (50%) 50ML SYRG IV PRN (18:45)
[2020-08-06] MEDS ORDERED: InsuLIN R (HUMAN) 100 UNITS in SODIUM CHL 0.9% 99 ML IV SCH (18:45)
[2020-08-06] MEDS: SODIUM CHLORIDE 0.9% 1,000 ML IV SCH ×2 (19:00→21:00)
[2020-08-06] MEDS: ACCU-CHEK COMFORT CURVE STRIP VI SCH ×3 (19:51→22:33)
[2020-08-06] MEDS ORDERED: ACETAMINOPHEN 325 MG TAB PO PRN (21:00)
[2020-08-06] MEDS ORDERED: HYDROcodone-ACET 5/325MG TAB PO PRN (21:00)
[2020-08-06] MEDS ORDERED: SODIUM CHLORIDE 0.9% 1,000 ML IV SCH ×2 (21:00→22:45)
[2020-08-06] MEDS ORDERED: DOCUSATE SOD 100 MG CAP PO PRN (21:00)
[2020-08-07] MEDS: ACCU-CHEK COMFORT CURVE STRIP VI SCH ×11 (00:04→21:39)
[2020-08-07] MEDS ORDERED: InsuLIN R (HUMAN) 100 UNITS in SODIUM CHL 0.9% 99 ML IV SCH (01:45)
[2020-08-07] MEDS: SODIUM CHLORIDE 0.9% 1,000 ML IV SCH ×2 (02:16→07:47)
[2020-08-07 02:20] LABS: Calcium 7.6 mg/dL (8.5-10.1); Potassium 4.1 mmol/L (3.5-5.1)
[2020-08-07 02:37] LABS: BUN/Creatinine Ratio 20.9
[2020-08-07] MEDS: InsuLIN R (HUMAN) 100 UNITS in SODIUM CHL 0.9% 99 ML IV SCH ×2 (03:53→12:12)
[2020-08-07] MEDS ORDERED: VANCOMYCIN PER PHARMACY 0 MG IV SCH (05:45)
[2020-08-07] MEDS ORDERED: PIPERACILLIN-TAZOB 3.375GM 100 ML IV SCH (06:00)
[2020-08-07] MEDS ORDERED: PIPERACILLIN-TAZOB 2.25GM 50 ML IV SCH (06:00)
[2020-08-07] MEDS ORDERED: VANCOMYCIN 1GM/250ML 250 ML IV ONE (06:00)
[2020-08-07] MEDS ORDERED: InsuLIN REG 1unit/0.01ml Soln (100units/ml) ONE (06:55)
[2020-08-07 09:38] LABS: Basophils # (auto) 0 10 ^3/uL (0-0.2); Basophils % (auto) 0.1 % (0.0-2.0); Eosinophils # (auto) 0 10 ^3/uL (0-0.8); Hematocrit 36.7 % (41.0-53.0); Hemoglobin 11.8 g/dL (13.5-17.5); Lymphocytes # (auto) 0.9 10 ^3/uL (0.4-5.4); Mean Corpuscular Hemoglobin 28.1 pg (28.0-32.0); Mean Corpuscular Hgb Conc. 32.1 g/dL (32.0-36.0); Mean Corpuscular Volume 87.5 fL (80.0-100.0); Monocytes # (auto) 1.5 10 ^3/uL (0-1.3); Monocytes % (auto) 7.9 % (0.0-12.0); Neutrophils # (auto) 16.3 10 ^3/uL (1.6-8.6); Nucleated Red Blood Cells % 0.1 %; Platelet Count (auto) 306 10^3/uL (140-450); Red Cell Distribution Width 12.7 % (11.8-14.3); White Blood Cell 18.7 10^3/uL (4.4-10.8)
[2020-08-07 09:50] LABS: Calcium 7.7 mg/dL (8.5-10.1); Potassium 3.3 mmol/L (3.5-5.1)
[2020-08-07 09:53] LABS: BUN/Creatinine Ratio 22.8
[2020-08-07] MEDS ORDERED: SOD CHL 0.45% 1,000 ML IV SCH (11:30)
[2020-08-07] MEDS ORDERED: INSULIN LANTUS (GLARGINE) 1 /0.01ml (100units/ml) SC ONE ×2 (11:30→12:30)
[2020-08-07] MEDS ORDERED: DEXTROSE (50%) 50ML SYRG IV PRN (12:30)
[2020-08-07] MEDS ORDERED: PANTOPRAZOLE 40 MG TAB PO ONE (12:30)
[2020-08-07] MEDS ORDERED: cefTRIAXone 1GM/50ML D5W 50 ML IV ONE (12:30)
[2020-08-07] MEDS ORDERED: POTASSIUM CHL 20MEQ/100ML 100 ML IV ONE (12:45)
[2020-08-07] MEDS: D5W/SOD CHL 0.45% 1,000 ML IV SCH ×2 (12:54→23:44)
[2020-08-07 15:22] VITALS: BP 156/66
[2020-08-07 16:00] VITALS: BP 156/66
[2020-08-07] MEDS: hydrALAZINE HCL 20 MG/ML VL IV PRN ×2 (16:48→23:11)
[2020-08-07] MEDS: InsuLIN REG 1unit/0.01ml Soln (100units/ml) SC SCH ×2 (17:25→21:42)
[2020-08-07] MEDS: Glucerna Carbsteady SHAKE Vanilla 8oz PO SCH (18:46)
[2020-08-07] MEDS: ONDANSETRON HCL 4 MG/2 ML VIAL IV PRN (19:53)
[2020-08-07] MEDS ORDERED: HEPARIN SODIUM (PORCINE) 5000 UNITS/ML 1ML VIAL ONE (21:36)
[2020-08-07] MEDS: HEPARIN SODIUM (PORCINE) 5000 UNITS/ML 1ML VIAL SC SCH (21:45)
[2020-08-07 22:00] VITALS: BP 208/110
[2020-08-07 23:58] LABS: Basophils # (auto) 0.1 10 ^3/uL (0-0.2); Basophils % (auto) 0.5 % (0.0-2.0); Eosinophils # (auto) 0 10 ^3/uL (0-0.8); Eosinophils % (auto) 0.1 % (0.0-7.0); Hematocrit 37.8 % (41.0-53.0); Hemoglobin 12.3 g/dL (13.5-17.5); Lymphocytes # (auto) 0.7 10 ^3/uL (0.4-5.4); Lymphocytes % (auto) 3.5 % (10.0-50.0); Mean Corpuscular Hemoglobin 28.4 pg (28.0-32.0); Mean Corpuscular Hgb Conc. 32.4 g/dL (32.0-36.0); Mean Corpuscular Volume 87.7 fL (80.0-100.0); Monocytes # (auto) 1.3 10 ^3/uL (0-1.3); Monocytes % (auto) 6.1 % (0.0-12.0); Neutrophils # (auto) 18.6 10 ^3/uL (1.6-8.6); Neutrophils % (auto) 89.8 % (37.0-80.0); Nucleated Red Blood Cells % 0.2 %; Platelet Count (auto) 280 10^3/uL (140-450); Red Blood Cells 4.32 10^6/uL (4.5-5.90); Red Cell Distribution Width 13.1 % (11.8-14.3); White Blood Cell 20.7 10^3/uL (4.4-10.8)
[2020-08-08] MEDS: ONDANSETRON HCL 4 MG/2 ML VIAL IV PRN (00:08)
[2020-08-08 00:14] LABS: Albumin 2.8 g/dL (3.4-5.0); BUN/Creatinine Ratio 23.4; Potassium 4.5 mmol/L (3.5-5.1)
[2020-08-08 00:17] LABS: Bilirubin, Total 0.2 mg/dL (0.2-1.0); Total Protein 6.9 g/dL (6.4-8.2)
[2020-08-08] MEDS: D5W/SOD CHL 0.45% 1,000 ML IV SCH (04:22)
[2020-08-08 05:00] VITALS: BP 203/97
[2020-08-08] MEDS: hydrALAZINE HCL 25 MG TAB PO SCH ×3 (05:45→22:15)
[2020-08-08] MEDS ORDERED: hydrALAZINE HCL 25 MG TAB PO SCH (06:00)
[2020-08-08] MEDS ORDERED: PIPERACILLIN-TAZOB 2.25GM 50 ML IV SCH ×2 (06:00→10:00)
[2020-08-08] MEDS: ACCU-CHEK COMFORT CURVE STRIP VI SCH ×4 (06:18→22:24)
[2020-08-08] MEDS: InsuLIN REG 1unit/0.01ml Soln (100units/ml) SC SCH ×4 (06:20→22:27)
[2020-08-08] MEDS: LEVOTHYROXINE SODIUM 100 MCG TAB PO SCH (06:29)
[2020-08-08 06:33] LABS: Basophils # (auto) 0.1 10 ^3/uL (0-0.2); Basophils % (auto) 0.4 % (0.0-2.0); Eosinophils # (auto) 0 10 ^3/uL (0-0.8); Hematocrit 33.7 % (41.0-53.0); Hemoglobin 11.1 g/dL (13.5-17.5); Lymphocytes # (auto) 0.9 10 ^3/uL (0.4-5.4); Lymphocytes % (auto) 6.3 % (10.0-50.0); Mean Corpuscular Hemoglobin 28.5 pg (28.0-32.0); Mean Corpuscular Hgb Conc. 33.1 g/dL (32.0-36.0); Mean Corpuscular Volume 86.1 fL (80.0-100.0); Monocytes # (auto) 0.9 10 ^3/uL (0-1.3); Monocytes % (auto) 6.2 % (0.0-12.0); Neutrophils # (auto) 12.4 10 ^3/uL (1.6-8.6); Neutrophils % (auto) 87.1 % (37.0-80.0); Nucleated Red Blood Cells % 0.1 %; Platelet Count (auto) 275 10^3/uL (140-450); Red Blood Cells 3.91 10^6/uL (4.5-5.90); Red Cell Distribution Width 12.9 % (11.8-14.3); White Blood Cell 14.2 10^3/uL (4.4-10.8)
[2020-08-08 08:00] VITALS: BP 170/95
[2020-08-08] MEDS: Glucerna Carbsteady SHAKE Vanilla 8oz PO SCH ×3 (08:00→19:00)
[2020-08-08 08:59] LABS: BUN/Creatinine Ratio 24.5; Calcium 7.6 mg/dL (8.5-10.1); Potassium 4.5 mmol/L (3.5-5.1)
[2020-08-08] MEDS: cefTRIAXone 1GM/50ML D5W 50 ML IV SCH (09:00)
[2020-08-08] MEDS ORDERED: INSULIN LANTUS (GLARGINE) 1 /0.01ml (100units/ml) SC SCH (10:00)
[2020-08-08] MEDS ORDERED: hydrALAZINE HCL 10 MG TAB PO SCH (10:00)
[2020-08-08] MEDS ORDERED: amLODIPine BESYLATE 5 MG TAB PO SCH (10:00)
[2020-08-08] MEDS: amLODIPine BESYLATE 5 MG TAB PO SCH (11:35)
[2020-08-08] MEDS: PANTOPRAZOLE 40 MG TAB PO SCH (11:35)
[2020-08-08] MEDS: HEPARIN SODIUM (PORCINE) 5000 UNITS/ML 1ML VIAL SC SCH ×2 (11:35→22:23)
[2020-08-08] MEDS: SOD CHL 0.45% 1,000 ML IV SCH ×2 (14:21→23:27)
[2020-08-08] MEDS: CLINDAMYCIN 300MG IV 50 ML IV SCH ×2 (14:22→22:14)
[2020-08-08 16:00] VITALS: BP 162/91
[2020-08-08] MEDS ORDERED: DEXTROSE (50%) 50ML SYRG IV PRN (20:15)
[2020-08-08 22:00] VITALS: BP 165/94
[2020-08-08] MEDS: INSULIN LANTUS (GLARGINE) 1 /0.01ml (100units/ml) SC SCH (22:33)
[2020-08-09 05:00] VITALS: BP 151/79
[2020-08-09] MEDS: InsuLIN REG 1unit/0.01ml Soln (100units/ml) SC SCH ×4 (06:27→22:10)
[2020-08-09] MEDS: hydrALAZINE HCL 25 MG TAB PO SCH ×3 (06:28→22:17)
[2020-08-09] MEDS: CLINDAMYCIN 300MG IV 50 ML IV SCH ×3 (06:29→22:18)
[2020-08-09] MEDS: ACCU-CHEK COMFORT CURVE STRIP VI SCH ×4 (06:30→22:13)
[2020-08-09 08:00] VITALS: BP 150/73
[2020-08-09] MEDS: Glucerna Carbsteady SHAKE Vanilla 8oz PO SCH ×3 (08:16→18:34)
[2020-08-09] MEDS: cefTRIAXone 1GM/50ML D5W 50 ML IV SCH (08:16)
[2020-08-09] MEDS: LEVOTHYROXINE SODIUM 100 MCG TAB PO SCH (08:16)
[2020-08-09] MEDS: amLODIPine BESYLATE 5 MG TAB PO SCH (09:44)
[2020-08-09] MEDS: PANTOPRAZOLE 40 MG TAB PO SCH (09:44)
[2020-08-09] MEDS: HEPARIN SODIUM (PORCINE) 5000 UNITS/ML 1ML VIAL SC SCH ×2 (09:45→22:09)
[2020-08-09 11:12] LABS: Basophils # (auto) 0 10 ^3/uL (0-0.2); Basophils % (auto) 0.4 % (0.0-2.0); Eosinophils # (auto) 0 10 ^3/uL (0-0.8); Eosinophils % (auto) 0.3 % (0.0-7.0); Hematocrit 30.5 % (41.0-53.0); Hemoglobin 10.5 g/dL (13.5-17.5); Lymphocytes # (auto) 0.6 10 ^3/uL (0.4-5.4); Lymphocytes % (auto) 10.6 % (10.0-50.0); Mean Corpuscular Hemoglobin 29.4 pg (28.0-32.0); Mean Corpuscular Hgb Conc. 34.3 g/dL (32.0-36.0); Mean Corpuscular Volume 85.6 fL (80.0-100.0); Monocytes # (auto) 0.4 10 ^3/uL (0-1.3); Monocytes % (auto) 7.4 % (0.0-12.0); Neutrophils # (auto) 4.4 10 ^3/uL (1.6-8.6); Neutrophils % (auto) 81.3 % (37.0-80.0); Nucleated Red Blood Cells % 0.2 %; Platelet Count (auto) 187 10^3/uL (140-450); Red Blood Cells 3.56 10^6/uL (4.5-5.90); Red Cell Distribution Width 12.7 % (11.8-14.3); White Blood Cell 5.5 10^3/uL (4.4-10.8)
[2020-08-09 11:40] LABS: Calcium 7.7 mg/dL (8.5-10.1); Potassium 4.1 mmol/L (3.5-5.1)
[2020-08-09 11:41] LABS: BUN/Creatinine Ratio 24.3
[2020-08-09] MEDS: INSULIN LANTUS (GLARGINE) 1 /0.01ml (100units/ml) SC SCH ×2 (12:00→22:12)
[2020-08-09] MEDS: SOD CHL 0.45% 1,000 ML IV SCH (12:25)
[2020-08-09] MEDS: METOCLOPRAMIDE HCL 5MG/ml INJ 2ml VIAL IV SCH ×2 (13:58→22:18)
[2020-08-09] MEDS ORDERED: METOCLOPRAMIDE HCL 5MG/ml INJ 2ml VIAL IV SCH (14:00)
[2020-08-09 16:00] VITALS: BP 151/89
[2020-08-09 22:00] VITALS: BP 158/83
[2020-08-10] MEDS: SOD CHL 0.45% 1,000 ML IV SCH (01:45)
[2020-08-10 05:47] VITALS: BP 154/79
[2020-08-10] MEDS: InsuLIN REG 1unit/0.01ml Soln (100units/ml) SC SCH ×2 (06:05→11:40)
[2020-08-10] MEDS: ACCU-CHEK COMFORT CURVE STRIP VI SCH ×2 (06:06→11:39)
[2020-08-10] MEDS: CLINDAMYCIN 300MG IV 50 ML IV SCH ×2 (06:23→14:00)
[2020-08-10] MEDS: METOCLOPRAMIDE HCL 5MG/ml INJ 2ml VIAL IV SCH ×2 (06:23→14:09)
[2020-08-10] MEDS: hydrALAZINE HCL 25 MG TAB PO SCH ×2 (06:24→14:00)
[2020-08-10] MEDS: LEVOTHYROXINE SODIUM 100 MCG TAB PO SCH (06:24)
[2020-08-10 08:00] VITALS: BP 154/81
[2020-08-10] MEDS: amLODIPine BESYLATE 5 MG TAB PO SCH (09:48)
[2020-08-10] MEDS: PANTOPRAZOLE 40 MG TAB PO SCH (09:48)
[2020-08-10] MEDS: cefTRIAXone 1GM/50ML D5W 50 ML IV SCH (09:51)
[2020-08-10] MEDS: Glucerna Carbsteady SHAKE Vanilla 8oz PO SCH ×2 (09:51→11:48)
[2020-08-10] MEDS: INSULIN LANTUS (GLARGINE) 1 /0.01ml (100units/ml) SC SCH (10:02)
[2020-08-10] MEDS: HEPARIN SODIUM (PORCINE) 5000 UNITS/ML 1ML VIAL SC SCH (10:02)
[2020-08-10] MEDS ORDERED: LABETALOL HCL 200 MG TAB PO ONE (10:15)
[2020-08-10 11:44] LABS: Basophils # (auto) 0 10 ^3/uL (0-0.2); Basophils % (auto) 0.4 % (0.0-2.0); Eosinophils # (auto) 0.1 10 ^3/uL (0-0.8); Eosinophils % (auto) 1.4 % (0.0-7.0); Hematocrit 33.4 % (41.0-53.0); Hemoglobin 11.2 g/dL (13.5-17.5); Lymphocytes # (auto) 0.9 10 ^3/uL (0.4-5.4); Mean Corpuscular Hemoglobin 28.7 pg (28.0-32.0); Mean Corpuscular Hgb Conc. 33.4 g/dL (32.0-36.0); Mean Corpuscular Volume 85.9 fL (80.0-100.0); Monocytes # (auto) 0.5 10 ^3/uL (0-1.3); Monocytes % (auto) 9.7 % (0.0-12.0); Neutrophils # (auto) 3.8 10 ^3/uL (1.6-8.6); Neutrophils % (auto) 71.5 % (37.0-80.0); Nucleated Red Blood Cells % 0.1 %; Platelet Count (auto) 173 10^3/uL (140-450); Red Blood Cells 3.89 10^6/uL (4.5-5.90); Red Cell Distribution Width 12.4 % (11.8-14.3); White Blood Cell 5.3 10^3/uL (4.4-10.8)
[2020-08-10 11:59] LABS: BUN/Creatinine Ratio 22.1; Calcium 7.9 mg/dL (8.5-10.1); Potassium 4.7 mmol/L (3.5-5.1)
[2020-08-10] MEDS ORDERED: HYDR50TA15 PO (14:17)
[2020-08-10] MEDS ORDERED: AMLO-496 PO (14:17)
[2020-08-10] MEDS ORDERED: LABE200T6 PO (14:17)
[2020-08-10] MEDS ORDERED: PANT40T PO (14:17)
[2020-08-10 14:45] VITALS: BP 121/72
[2020-08-10 15:55] LABS: Creatinine, Urine 64 mg/dL (30.0-125.0); Sodium Urine 46 mmol/L (40-220)
[2020-08-10] MEDS ORDERED: GABAPENTIN 300 MG CAP PO SCH (22:00)
[2020-08-10] MEDS ORDERED: LABETALOL HCL 200 MG TAB PO SCH (22:00)
== END 2020-08-10 16:11 | disposition home or self-care (01) | DRG 637 ==
LOC: EDBD 17:07 → ER 17:07 → TELE 17:08 → TELE-WESTW 08-07 14:53
PROVIDERS: ADMIT Hospitalist; ATTEND Internal Medicine
PROC: 05HB33Z Insertion of Infusion Device into Right Basilic Vein, Percutaneous Approach (ICD-10-PCS; principal; 2020-08-08)
PROC: B54MZZA Ultrasonography of Right Upper Extremity Veins, Guidance (ICD-10-PCS; 2020-08-08)
DX: E11.10 Type 2 diabetes mellitus with ketoacidosis without coma (principal); G93.41 Metabolic encephalopathy; N17.0 Acute kidney failure with tubular necrosis; E44.0 Moderate protein-calorie malnutrition; E87.0 Hyperosmolality and hypernatremia; R65.10 Systemic inflammatory response syndrome (SIRS) of non-infectious origin without acute organ dysfunction; E03.9 Hypothyroidism, unspecified; E11.649 Type 2 diabetes mellitus with hypoglycemia without coma; D63.1 Anemia in chronic kidney disease; E11.40 Type 2 diabetes mellitus with diabetic neuropathy, unspecified; E11.22 Type 2 diabetes mellitus with diabetic chronic kidney disease; E66.9 Obesity, unspecified; E86.0 Dehydration; F15.10 Other stimulant abuse, uncomplicated; F17.210 Nicotine dependence, cigarettes, uncomplicated; I12.9 Hypertensive chronic kidney disease with stage 1 through stage 4 chronic kidney disease, or unspecified chronic kidney disease; N18.9 Chronic kidney disease, unspecified; Z20.822 Contact with and (suspected) exposure to COVID-19; Z80.0 Family history of malignant neoplasm of digestive organs; Z83.3 Family history of diabetes mellitus; Z85.07 Personal history of malignant neoplasm of pancreas; Z91.19 Patient's noncompliance with other medical treatment and regimen; Z68.33 Body mass index [BMI] 33.0-33.9, adult
CPT/HCPCS: 36415; 36600; 71045; 76775; 80048; 80053; 80061; 80202; 80307; 81001; 82570; 82805; 82962; 83036; 83605; 83735; 83880; 84100; 84156; 84300; 84484; 85025; 85610; 85730; 87040; 87077; 87186; 87426; 93005; 96365; 96366; 96367; 96368; 96372; G0378; J0696; J1815; J2405; J2543; J3480; J3490

== ENCOUNTER 2020-08-12 17:24 | Inpatient (IN) | payer OTHER, MEDICAID ==
[~2020-08-12] VITALS: Ht 185.4 cm; Wt 103.5 kg
[~2020-08-12 17:24] MED LIST changes: +AMLO-496 PO; +HYDR50TA15 PO; -INSLANTI SC; -LEVO25TA6 PO; -LISI-646 PO; +PANT40T PO
[2020-08-12] MEDS ORDERED: SODIUM CHLORIDE 0.9% 500 ML IVB ONE (18:00)
[2020-08-12 20:28] LABS: Basophils # (auto) 0 10 ^3/uL (0-0.2); Basophils % (auto) 0.4 % (0.0-2.0); Eosinophils # (auto) 0.1 10 ^3/uL (0-0.8); Eosinophils % (auto) 1.5 % (0.0-7.0); Hematocrit 34.3 % (41.0-53.0); Hemoglobin 11.4 g/dL (13.5-17.5); Lymphocytes # (auto) 0.8 10 ^3/uL (0.4-5.4); Lymphocytes % (auto) 8.5 % (10.0-50.0); Mean Corpuscular Hemoglobin 28.5 pg (28.0-32.0); Mean Corpuscular Hgb Conc. 33.2 g/dL (32.0-36.0); Monocytes # (auto) 0.6 10 ^3/uL (0-1.3); Neutrophils # (auto) 7.7 10 ^3/uL (1.6-8.6); Neutrophils % (auto) 82.6 % (37.0-80.0); Red Blood Cells 3.98 10^6/uL (4.5-5.90); Red Cell Distribution Width 12.4 % (11.8-14.3); White Blood Cell 9.3 10^3/uL (4.4-10.8)
[2020-08-12 20:51] LABS: Albumin 2.5 g/dL (3.4-5.0); Anion Gap 6 (5-15); Blood Alcohol < 3.0 mg/dL (0-5); Blood Urea Nitrogen 28 mg/dL (7-18); Calcium 7.1 mg/dL (8.5-10.1); Carbon Dioxide 26 mmol/L (21-32); Chloride 109 mmol/L (98-107); Glucose 152 mg/dL (74-106); Magnesium 1.7 mg/dL (1.6-2.6); Potassium 4.3 mmol/L (3.5-5.1); Sodium 141 mmol/L (136-145)
[2020-08-12 21:00] LABS: Alanine Aminotransferase 89 U/L (16-61); Alkaline Phosphatase 92 U/L (45-117); Aspartate Aminotransferase 88 U/L (15-37); Bilirubin, Total 0.3 mg/dL (0.2-1.0); GFR African American 66 mL/min; GFR Non-African American 55 mL/min; Total Protein 6.2 g/dL (6.4-8.2)
[2020-08-12] MEDS ORDERED: ONDANSETRON HCL 4 MG/2 ML VIAL IV PRN (22:30)
[2020-08-12] MEDS: SODIUM CHLORIDE 0.9% 1,000 ML IV SCH (22:30)
[2020-08-12 23:16] LABS: Urine Amorphous Crystal FEW /hpf (None Seen); Urine Bacteria FEW /hpf (None Seen); Urine Blood 1+ /uL (Negative); Urine Hyaline Cast FEW /lpf (0 - 2); Urine Specific Gravity 1.015 (1.001-1.035); Urine WBC 29 /hpf (0 - 3)
[2020-08-12 23:20] LABS: Alcohol, Urine < 3.0 mg/dL (0-10); Amphetamine Screen, Urine NEGATIVE (NEGATIVE); Barbiturate Scree,Urine NEGATIVE (NEGATIVE); Benzodiazephine Screen, Urine NEGATIVE (NEGATIVE); Cannabinoid Screen, Urine NEGATIVE (NEGATIVE); Cocaine Screen, Urine NEGATIVE (NEGATIVE); Opiate Scree,Urine NEGATIVE (NEGATIVE); Phencyclidine Screen, Urine NEGATIVE (NEGATIVE)
[2020-08-13] MEDS ORDERED: diphenhdrAMINE HCL 50 MG/1 ML VL IV ONE (03:45)
[2020-08-13] MEDS ORDERED: HALOPERIDOL LACTATE 5 MG/ML INJ VIAL ONE (03:46)
[2020-08-13] MEDS: InsuLIN REG 1unit/0.01ml Soln (100units/ml) SC SCH ×3 (06:16→17:00)
[2020-08-13] MEDS: LEVOTHYROXINE SODIUM 100 MCG TAB PO SCH (06:16)
[2020-08-13] MEDS: ACCU-CHEK COMFORT CURVE STRIP VI SCH ×4 (06:18→21:57)
[2020-08-13] MEDS: FAMOTIDINE 20 MG TAB PO SCH ×2 (10:00→22:09)
[2020-08-13] MEDS: amLODIPine BESYLATE 5 MG TAB PO SCH (10:00)
[2020-08-13] MEDS ORDERED: LABETALOL HCL 200 MG TAB PO SCH (10:00)
[2020-08-13 11:26] LABS: Basophils # (auto) 0 10 ^3/uL (0-0.2); Basophils % (auto) 0.4 % (0.0-2.0); Eosinophils # (auto) 0.2 10 ^3/uL (0-0.8); Eosinophils % (auto) 3.5 % (0.0-7.0); Hematocrit 34.5 % (41.0-53.0); Hemoglobin 11.3 g/dL (13.5-17.5); Lymphocytes # (auto) 1.1 10 ^3/uL (0.4-5.4); Lymphocytes % (auto) 15.9 % (10.0-50.0); Mean Corpuscular Hemoglobin 28.2 pg (28.0-32.0); Mean Corpuscular Hgb Conc. 32.7 g/dL (32.0-36.0); Mean Corpuscular Volume 86.3 fL (80.0-100.0); Monocytes # (auto) 0.7 10 ^3/uL (0-1.3); Monocytes % (auto) 9.7 % (0.0-12.0); Neutrophils % (auto) 70.5 % (37.0-80.0); Nucleated Red Blood Cells % 0.2 %; Red Cell Distribution Width 12.5 % (11.8-14.3); White Blood Cell 7.2 10^3/uL (4.4-10.8)
[2020-08-13 11:36] LABS: BUN/Creatinine Ratio 18.1; Calcium 8.2 mg/dL (8.5-10.1)
[2020-08-13] MEDS: SODIUM CHLORIDE 0.9% 1,000 ML IV SCH (13:45)
[2020-08-13] MEDS ORDERED: NITROGLYCERIN 0.4 MG SL TAB SL PRN (14:00)
[2020-08-13] MEDS ORDERED: MORPHINE SULFATE INJECTION 2 MG/ML SYRG IV PRN (14:00)
[2020-08-13] MEDS: SODIUM CHLOR 0.9% PF (SALINE LOCK) 10ML VIAL/SYR IV SCH ×2 (14:06→21:56)
[2020-08-13] MEDS: LABETALOL HCL 200 MG TAB PO SCH (22:09)
[2020-08-14] MEDS: INSULIN 70/30 1unit/0.01ml Susp (100units/ml) SC SCH ×3 (00:03→21:10)
[2020-08-14] MEDS: InsuLIN REG 1unit/0.01ml Soln (100units/ml) SC SCH ×5 (02:35→21:09)
[2020-08-14] MEDS: SODIUM CHLOR 0.9% PF (SALINE LOCK) 10ML VIAL/SYR IV SCH ×3 (06:04→21:00)
[2020-08-14] MEDS: ceFAZolin 1GM/50ML 50 ML IV SCH ×3 (06:24→20:59)
[2020-08-14] MEDS: ACCU-CHEK COMFORT CURVE STRIP VI SCH ×4 (07:00→21:07)
[2020-08-14] MEDS: LEVOTHYROXINE SODIUM 100 MCG TAB PO SCH (07:00)
[2020-08-14] MEDS ORDERED: LORazepam 2MG/ML-1ML VIAL ONE (08:13)
[2020-08-14] MEDS ORDERED: HALOPERIDOL LACTATE 5 MG/ML INJ VIAL ONE (08:14)
[2020-08-14] MEDS ORDERED: diphenhdrAMINE HCL 50 MG/1 ML VL ONE (08:14)
[2020-08-14] MEDS: amLODIPine BESYLATE 5 MG TAB PO SCH (10:00)
[2020-08-14] MEDS: LABETALOL HCL 200 MG TAB PO SCH (10:00)
[2020-08-14] MEDS: FAMOTIDINE 20 MG TAB PO SCH (10:00)
[2020-08-14] MEDS ORDERED: LABETALOL HCL 5 MG/ML 4ML SYRINGE IV PRN (12:15)
[2020-08-14] MEDS ORDERED: HALOPERIDOL LACTATE 5 MG/ML INJ VIAL IM PRN (12:15)
[2020-08-14] MEDS ORDERED: cloNIDine 0.1 mg/24hr 7 DAY PATCH TD SCH (12:15)
[2020-08-14] MEDS ORDERED: LORazepam 2MG/ML-1ML VIAL IV PRN ×3 (12:15→19:46)
[2020-08-14] MEDS: LABETALOL HCL 5 MG/ML 4ML SYRINGE IV PRN (12:43)
[2020-08-14 13:00] VITALS: BP 140/77
[2020-08-14] MEDS: ENOXAPARIN SOD 40 MG/0.4 ML SYRINGE SC SCH (13:12)
[2020-08-14] MEDS ORDERED: hydrALAZINE HCL 25 MG TAB PO SCH (14:00)
[2020-08-14 14:42] LABS: BUN/Creatinine Ratio 17.9; Calcium 7.8 mg/dL (8.5-10.1); Potassium 4.1 mmol/L (3.5-5.1)
[2020-08-14 17:00] VITALS: BP 162/81
[2020-08-14] MEDS: FAMOTIDINE (10MG/ML) 2ML VL IV SCH (21:00)
[2020-08-14 22:00] VITALS: BP 178/91
[2020-08-14] MEDS ORDERED: LEVOTHYROXINE SODIUM 100 MCG/5 ML INJ IV ONE (23:00)
[2020-08-15 05:00] VITALS: BP 155/78
[2020-08-15] MEDS: SODIUM CHLOR 0.9% PF (SALINE LOCK) 10ML VIAL/SYR IV SCH ×3 (05:03→23:00)
[2020-08-15] MEDS: ceFAZolin 1GM/50ML 50 ML IV SCH ×3 (05:03→23:00)
[2020-08-15] MEDS: ACCU-CHEK COMFORT CURVE STRIP VI SCH ×4 (06:19→23:30)
[2020-08-15] MEDS: InsuLIN REG 1unit/0.01ml Soln (100units/ml) SC SCH ×4 (06:19→23:46)
[2020-08-15] MEDS: DEXTROSE (50%) 50ML SYRG IV PRN (06:19)
[2020-08-15 09:00] VITALS: BP 160/85
[2020-08-15] MEDS: FAMOTIDINE (10MG/ML) 2ML VL IV SCH ×2 (09:52→23:00)
[2020-08-15] MEDS: ENOXAPARIN SOD 40 MG/0.4 ML SYRINGE SC SCH (09:52)
[2020-08-15] MEDS: INSULIN 70/30 1unit/0.01ml Susp (100units/ml) SC SCH ×2 (10:00→23:45)
[2020-08-15] MEDS ORDERED: LEVOTHYROXINE SODIUM 100 MCG/5 ML INJ IV SCH (10:00)
[2020-08-15] MEDS: LABETALOL HCL 5 MG/ML 4ML SYRINGE IV PRN (12:36)
[2020-08-15 13:00] VITALS: BP 172/91
[2020-08-15 17:00] VITALS: BP 152/79
[2020-08-15 22:23] VITALS: BP 155/77
[2020-08-16] MEDS: ACCU-CHEK COMFORT CURVE STRIP VI SCH ×4 (00:45→17:50)
[2020-08-16 05:26] VITALS: BP 137/75
[2020-08-16] MEDS: SODIUM CHLOR 0.9% PF (SALINE LOCK) 10ML VIAL/SYR IV SCH ×3 (06:00→22:00)
[2020-08-16] MEDS: ceFAZolin 1GM/50ML 50 ML IV SCH ×2 (06:31→15:40)
[2020-08-16] MEDS: LEVOTHYROXINE SODIUM 100 MCG TAB PO SCH (06:35)
[2020-08-16] MEDS: InsuLIN REG 1unit/0.01ml Soln (100units/ml) SC SCH ×3 (07:00→17:50)
[2020-08-16 08:00] VITALS: BP 150/87
[2020-08-16] MEDS: FAMOTIDINE (10MG/ML) 2ML VL IV SCH (10:47)
[2020-08-16] MEDS: INSULIN 70/30 1unit/0.01ml Susp (100units/ml) SC SCH (10:47)
[2020-08-16] MEDS: ENOXAPARIN SOD 40 MG/0.4 ML SYRINGE SC SCH (10:48)
[2020-08-16 12:56] VITALS: BP 137/76
[2020-08-16 16:46] VITALS: BP 145/70
[2020-08-16] MEDS: LABETALOL HCL 5 MG/ML 4ML SYRINGE IV PRN (20:39)
[2020-08-16 21:41] VITALS: BP 179/86
[2020-08-17] MEDS: INSULIN 70/30 1unit/0.01ml Susp (100units/ml) SC SCH ×2 (00:45→10:28)
[2020-08-17] MEDS: ceFAZolin 1GM/50ML 50 ML IV SCH ×4 (00:45→23:52)
[2020-08-17] MEDS: ATORVASTATIN 20 MG TAB PO SCH ×2 (00:45→23:52)
[2020-08-17] MEDS: FAMOTIDINE (10MG/ML) 2ML VL IV SCH ×3 (00:45→23:52)
[2020-08-17] MEDS: InsuLIN REG 1unit/0.01ml Soln (100units/ml) SC SCH ×4 (01:08→17:00)
[2020-08-17 04:40] VITALS: BP 200/102
[2020-08-17 05:04] VITALS: BP 166/95
[2020-08-17] MEDS: SODIUM CHLOR 0.9% PF (SALINE LOCK) 10ML VIAL/SYR IV SCH ×3 (06:00→23:52)
[2020-08-17] MEDS: LEVOTHYROXINE SODIUM 100 MCG TAB PO SCH (06:28)
[2020-08-17] MEDS: ACCU-CHEK COMFORT CURVE STRIP VI SCH ×4 (06:38→23:52)
[2020-08-17 09:00] VITALS: BP 160/93
[2020-08-17] MEDS: ASPirin 81 mg TAB PO SCH (10:07)
[2020-08-17] MEDS: ENOXAPARIN SOD 40 MG/0.4 ML SYRINGE SC SCH (10:07)
[2020-08-17 13:00] VITALS: BP 139/74
[2020-08-17 17:00] VITALS: BP 151/80
[2020-08-17 22:00] VITALS: BP 198/97
[2020-08-18] MEDS: INSULIN 70/30 1unit/0.01ml Susp (100units/ml) SC SCH ×3 (00:05→22:33)
[2020-08-18] MEDS: InsuLIN REG 1unit/0.01ml Soln (100units/ml) SC SCH ×5 (00:05→22:00)
[2020-08-18 05:00] VITALS: BP 125/73
[2020-08-18] MEDS: SODIUM CHLOR 0.9% PF (SALINE LOCK) 10ML VIAL/SYR IV SCH ×3 (06:00→22:32)
[2020-08-18] MEDS: ceFAZolin 1GM/50ML 50 ML IV SCH ×3 (06:40→22:32)
[2020-08-18] MEDS: LEVOTHYROXINE SODIUM 100 MCG TAB PO SCH (06:43)
[2020-08-18] MEDS: ACCU-CHEK COMFORT CURVE STRIP VI SCH ×4 (06:56→21:50)
[2020-08-18 09:00] VITALS: BP 153/79
[2020-08-18] MEDS: ENOXAPARIN SOD 40 MG/0.4 ML SYRINGE SC SCH (11:12)
[2020-08-18] MEDS: FAMOTIDINE (10MG/ML) 2ML VL IV SCH ×2 (11:12→22:32)
[2020-08-18] MEDS: ASPirin 81 mg TAB PO SCH (11:12)
[2020-08-18 12:59] VITALS: BP 178/80
[2020-08-18] MEDS: DEXTROSE (50%) 50ML SYRG IV PRN (16:57)
[2020-08-18 17:00] VITALS: BP 189/88
[2020-08-18 17:45] VITALS: BP 162/79
[2020-08-18] MEDS: LABETALOL HCL 5 MG/ML 4ML SYRINGE IV PRN (18:20)
[2020-08-18 22:00] VITALS: BP 162/94
[2020-08-18] MEDS: ATORVASTATIN 20 MG TAB PO SCH (22:32)
[2020-08-19 05:00] VITALS: BP 163/83
[2020-08-19] MEDS: SODIUM CHLOR 0.9% PF (SALINE LOCK) 10ML VIAL/SYR IV SCH (06:08)
[2020-08-19] MEDS: ceFAZolin 1GM/50ML 50 ML IV SCH (06:08)
[2020-08-19] MEDS: DEXTROSE (50%) 50ML SYRG IV PRN (06:21)
[2020-08-19] MEDS: ACCU-CHEK COMFORT CURVE STRIP VI SCH (06:22)
[2020-08-19] MEDS: InsuLIN REG 1unit/0.01ml Soln (100units/ml) SC SCH (06:38)
[2020-08-19] MEDS: LEVOTHYROXINE SODIUM 100 MCG TAB PO SCH (06:55)
[2020-08-19 08:00] VITALS: BP 185/91
[2020-08-19 09:00] VITALS: BP 185/91
[2020-08-19] MEDS: ASPirin 81 mg TAB PO SCH (10:21)
[2020-08-19] MEDS: ENOXAPARIN SOD 40 MG/0.4 ML SYRINGE SC SCH (10:27)
[2020-08-19] MEDS ORDERED: hydrALAZINE HCL 20 MG/ML VL IV PRN (10:30)
[2020-08-19] MEDS ORDERED: amLODIPine BESYLATE 5 MG TAB PO ONE (10:30)
[2020-08-19 13:00] VITALS: BP 149/79
[2020-08-19] MEDS ORDERED: hydrALAZINE HCL 25 MG TAB PO SCH (14:00)
[2020-08-20] MEDS ORDERED: amLODIPine BESYLATE 5 MG TAB PO SCH (10:00)
[2020-08-27] MEDS ORDERED: LORazepam 2MG/ML-1ML VIAL IV ONE (11:30)
== END 2020-08-19 12:20 | disposition left against medical advice (07) | DRG 871 ==
LOC: ER 17:24 → EDBD 17:24 → OVERFLOW 17:25 → DOU IN ADS 08-14 12:51
PROVIDERS: ADMIT Nurse Practitioner; ATTEND Internal Medicine
PROC: 05HC33Z Insertion of Infusion Device into Left Basilic Vein, Percutaneous Approach (ICD-10-PCS; principal; 2020-08-15)
PROC: B54NZZA Ultrasonography of Left Upper Extremity Veins, Guidance (ICD-10-PCS; 2020-08-15)
DX: A41.2 Sepsis due to unspecified staphylococcus (principal); E43 Unspecified severe protein-calorie malnutrition; G92 Toxic encephalopathy; I63.9 Cerebral infarction, unspecified; G40.209 Localization-related (focal) (partial) symptomatic epilepsy and epileptic syndromes with complex partial seizures, not intractable, without status epilepticus; I67.4 Hypertensive encephalopathy; E11.42 Type 2 diabetes mellitus with diabetic polyneuropathy; E11.22 Type 2 diabetes mellitus with diabetic chronic kidney disease; E03.9 Hypothyroidism, unspecified; E11.649 Type 2 diabetes mellitus with hypoglycemia without coma; F15.10 Other stimulant abuse, uncomplicated; F17.210 Nicotine dependence, cigarettes, uncomplicated; I12.9 Hypertensive chronic kidney disease with stage 1 through stage 4 chronic kidney disease, or unspecified chronic kidney disease; I16.0 Hypertensive urgency; Z53.29 Procedure and treatment not carried out because of patient's decision for other reasons; N18.30 Chronic kidney disease, stage 3 unspecified; Z20.822 Contact with and (suspected) exposure to COVID-19; Z79.82 Long term (current) use of aspirin; Z80.0 Family history of malignant neoplasm of digestive organs; Z82.0 Family history of epilepsy and other diseases of the nervous system; Z85.07 Personal history of malignant neoplasm of pancreas; Z83.3 Family history of diabetes mellitus; Z91.19 Patient's noncompliance with other medical treatment and regimen; Z68.29 Body mass index [BMI] 29.0-29.9, adult
CPT/HCPCS: 36415; 70450; 70551; 71045; 80048; 80053; 80307; 80320; 81001; 82140; 82962; 83605; 83735; 83880; 84439; 84443; 84484; 85025; 87040; 87077; 87081; 87186; 87426; 93005; 93306; 93886; 99291; G0378; J0690; J1815; J3490

== ENCOUNTER 2020-08-20 21:15 | Inpatient (IN) | payer OTHER, MEDICAID ==
[~2020-08-20] VITALS: Ht 193 cm; Wt 81.6 kg
[2020-08-20] MEDS ORDERED: SODIUM CHLORIDE 0.9% 1,000 ML IV ONE (22:00)
[2020-08-20 22:35] LABS: Basophils # (auto) 0.2 10 ^3/uL (0-0.2); Basophils % (auto) 1.3 % (0.0-2.0); Eosinophils # (auto) 0 10 ^3/uL (0-0.8); Eosinophils % (auto) 0.1 % (0.0-7.0); Hematocrit 39.5 % (41.0-53.0); Hemoglobin 12.5 g/dL (13.5-17.5); Lymphocytes # (auto) 0.7 10 ^3/uL (0.4-5.4); Mean Corpuscular Hemoglobin 28.7 pg (28.0-32.0); Mean Corpuscular Hgb Conc. 31.6 g/dL (32.0-36.0); Mean Corpuscular Volume 90.6 fL (80.0-100.0); Monocytes # (auto) 0.5 10 ^3/uL (0-1.3); Neutrophils # (auto) 16.1 10 ^3/uL (1.6-8.6); Neutrophils % (auto) 91.6 % (37.0-80.0); Nucleated Red Blood Cells % 0.1 %; Platelet Count (auto) 410 10^3/uL (140-450); Red Blood Cells 4.36 10^6/uL (4.5-5.90); Red Cell Distribution Width 12.7 % (11.8-14.3); White Blood Cell 17.5 10^3/uL (4.4-10.8)
[2020-08-20 22:55] LABS: Albumin 3.1 g/dL (3.4-5.0); Anion Gap 25 (5-15); Blood Alcohol < 3.0 mg/dL (0-5); Blood Urea Nitrogen 56 mg/dL (7-18); Calcium 9.4 mg/dL (8.5-10.1); Carbon Dioxide 18 mmol/L (21-32); Chloride 87 mmol/L (98-107); Sodium 130 mmol/L (136-145)
[2020-08-20 22:58] LABS: Alanine Aminotransferase 36 U/L (16-61); Aspartate Aminotransferase 29 U/L (15-37); Bilirubin, Total 0.6 mg/dL (0.2-1.0); GFR African American 37 mL/min; GFR Non-African American 31 mL/min; Total Protein 7.5 g/dL (6.4-8.2)
[2020-08-20 23:04] LABS: Alkaline Phosphatase 135 U/L (45-117)
[2020-08-20 23:05] LABS: Lactic Acid w/Reflex 2.4 mmol/L (0.4-2.0)
[2020-08-20 23:08] LABS: Glucose 956 mg/dL (74-106); Potassium 6.5 mmol/L (3.5-5.1)
[2020-08-20 23:35] LABS: Urine Bacteria FEW /hpf (None Seen); Urine Blood Negative /uL (Negative); Urine WBC <1 /hpf (0 - 3)
[2020-08-20] MEDS ORDERED: INSULIN LANTUS (GLARGINE) 1 /0.01ml (100units/ml) SC ONE (23:45)
[2020-08-20] MEDS ORDERED: InsuLIN R (HUMAN) 100 UNITS in SODIUM CHL 0.9% 99 ML IV SCH (23:45)
[2020-08-20] MEDS ORDERED: DEXTROSE (50%) 50ML SYRG IV PRN (23:45)
[2020-08-21] MEDS: ACCU-CHEK COMFORT CURVE STRIP VI SCH ×21 (00:05→21:31)
[2020-08-21 00:21] LABS: Alcohol, Urine < 3.0 mg/dL (0-10); Amphetamine Screen, Urine NEGATIVE (NEGATIVE); Barbiturate Scree,Urine NEGATIVE (NEGATIVE); Benzodiazephine Screen, Urine NEGATIVE (NEGATIVE); Cannabinoid Screen, Urine NEGATIVE (NEGATIVE); Cocaine Screen, Urine NEGATIVE (NEGATIVE); Opiate Scree,Urine NEGATIVE (NEGATIVE); Phencyclidine Screen, Urine NEGATIVE (NEGATIVE)
[2020-08-21] MEDS ORDERED: InsuLIN R (HUMAN) 100 UNITS in SODIUM CHL 0.9% 99 ML IV SCH ×11 (01:45→06:00)
[2020-08-21] MEDS ORDERED: ONDANSETRON HCL 4 MG/2 ML VIAL IV ONE ×2 (02:30)
[2020-08-21] MEDS ORDERED: MORPHINE SULFATE 4 MG/ML SYR/VIAL IV ONE (02:30)
[2020-08-21] MEDS ORDERED: ONDANSETRON HCL 4 MG/2 ML VIAL IV PRN (05:30)
[2020-08-21] MEDS ORDERED: NITROGLYCERIN 0.4 MG SL TAB SL PRN (05:30)
[2020-08-21] MEDS ORDERED: SODIUM BICARBONATE 8.4 % INJ 50ML VIAL IV ONE (05:30)
[2020-08-21] MEDS ORDERED: MORPHINE SULF INJ 2 MG/ML SYRINGE 1ML IV PRN (05:30)
[2020-08-21] MEDS ORDERED: SODIUM ZIRCONIUM CYCL 10 GM PAK PO ONE (05:30)
[2020-08-21] MEDS ORDERED: INSULIN LANTUS (GLARGINE) 1 /0.01ml (100units/ml) SC ONE (05:30)
[2020-08-21] MEDS ORDERED: CALCIUM GLUC 4.65meq/50ml D5AE 50 ML IV ONE (05:30)
[2020-08-21] MEDS ORDERED: DEXTROSE (50%) 50ML SYRG IV PRN ×2 (05:30→10:45)
[2020-08-21] MEDS: SODIUM CHLORIDE 0.9% 1,000 ML IV SCH ×2 (05:30→07:38)
[2020-08-21] MEDS: diphenhdrAMINE HCL 50 MG/1 ML VL IV PRN (05:41)
[2020-08-21] MEDS ORDERED: diphenhdrAMINE HCL 50 MG/1 ML VL ONE (05:41)
[2020-08-21] MEDS ORDERED: LORazepam 2MG/ML-1ML VIAL IV PRN (07:00)
[2020-08-21 07:30] LABS: Calcium 8.3 mg/dL (8.5-10.1); Potassium 3.9 mmol/L (3.5-5.1)
[2020-08-21 07:36] LABS: BUN/Creatinine Ratio 22.3
[2020-08-21] MEDS ORDERED: cefTRIAXone 1GM/50ML D5W 50 ML IV SCH (09:00)
[2020-08-21] MEDS ORDERED: SODIUM CHLORIDE 0.9% 1,000 ML IV SCH ×2 (09:30→11:30)
[2020-08-21] MEDS ORDERED: PANTOPRAZOLE 40 MG/10 ML VIAL INJ IV SCH (10:00)
[2020-08-21] MEDS ORDERED: INSULIN LANTUS (GLARGINE) 1 /0.01ml (100units/ml) SC SCH (10:00)
[2020-08-21] MEDS: InsuLIN REG 1unit/0.01ml Soln (100units/ml) SC SCH ×2 (11:30→16:31)
[2020-08-21 11:57] LABS: BUN/Creatinine Ratio 23.2; Calcium 8.8 mg/dL (8.5-10.1); Potassium 4.1 mmol/L (3.5-5.1)
[2020-08-21] MEDS: SOD CHL 0.45% 1,000 ML IV SCH ×2 (13:15→23:15)
[2020-08-21] MEDS ORDERED: SOD CHL 0.45% 1,000 ML IV SCH (13:15)
[2020-08-21] MEDS ORDERED: DOCUSATE SOD 100 MG CAP PO SCH (13:15)
[2020-08-21] MEDS: DOCUSATE SOD 100 MG CAP PO SCH ×2 (13:15→21:31)
[2020-08-21] MEDS ORDERED: FREE WATER PO SCH (13:15)
[2020-08-21] MEDS: FREE WATER PO SCH ×2 (13:15→18:00)
[2020-08-21 17:29] LABS: Basophils # (auto) 0.1 10 ^3/uL (0-0.2); Basophils % (auto) 0.3 % (0.0-2.0); Eosinophils # (auto) 0.1 10 ^3/uL (0-0.8); Eosinophils % (auto) 0.3 % (0.0-7.0); Hemoglobin 10.6 g/dL (13.5-17.5); Lymphocytes # (auto) 1.7 10 ^3/uL (0.4-5.4); Lymphocytes % (auto) 7.3 % (10.0-50.0); Mean Corpuscular Hemoglobin 28.8 pg (28.0-32.0); Mean Corpuscular Hgb Conc. 34.2 g/dL (32.0-36.0); Mean Corpuscular Volume 84.4 fL (80.0-100.0); Monocytes % (auto) 4.3 % (0.0-12.0); Neutrophils # (auto) 20.1 10 ^3/uL (1.6-8.6); Neutrophils % (auto) 87.8 % (37.0-80.0); Platelet Count (auto) 441 10^3/uL (140-450); Red Blood Cells 3.67 10^6/uL (4.5-5.90); Red Cell Distribution Width 12.3 % (11.8-14.3); White Blood Cell 22.9 10^3/uL (4.4-10.8)
[2020-08-21 17:46] LABS: BUN/Creatinine Ratio 21.8; Calcium 8.9 mg/dL (8.5-10.1); Potassium 4.1 mmol/L (3.5-5.1)
[2020-08-21 21:05] LABS: Free T4 (Free Thyroxine) 0.71 ng/dL (0.89-1.76); T3 Total 0.53 ng/mL (0.60-1.81)
[2020-08-21] MEDS ORDERED: InsuLIN REG 1unit/0.01ml Soln (100units/ml) SC SCH (22:00)
[2020-08-21] MEDS ORDERED: ATORVASTATIN 20 MG TAB PO SCH (22:00)
[2020-08-21] MEDS ORDERED: hydrALAZINE HCL 20 MG/ML VL IV PRN (22:30)
[2020-08-21 22:41] LABS: BUN/Creatinine Ratio 24.2; Calcium 8.3 mg/dL (8.5-10.1); Potassium 4.7 mmol/L (3.5-5.1)
[2020-08-22] VITALS: BP 158/78
[2020-08-22] MEDS: FREE WATER PO SCH
[2020-08-22] MEDS: diphenhdrAMINE HCL 50 MG/1 ML VL IV PRN (02:58)
[2020-08-22] MEDS ORDERED: HALOPERIDOL LACTATE 5 MG/ML INJ VIAL ONE (03:57)
[2020-08-22] MEDS ORDERED: LEVOTHYROXINE SODIUM 50 MCG TAB PO SCH (07:00)
[2020-08-22] MEDS ORDERED: LEVOTHYROXINE SODIUM 100 MCG TAB PO SCH (07:00)
[2020-08-22] MEDS ORDERED: INSULIN LANTUS (GLARGINE) 1 /0.01ml (100units/ml) SC SCH (10:00)
[2020-08-22] MEDS ORDERED: ASPirin 81 mg TAB PO SCH (10:00)
== END 2020-08-22 04:30 | disposition left against medical advice (07) | DRG 91 ==
LOC: EDBD 21:15 → ER 21:19 → TELE 21:20
PROVIDERS: ADMIT Nurse Practitioner; ATTEND Internal Medicine
DX: G92 Toxic encephalopathy (principal); E11.10 Type 2 diabetes mellitus with ketoacidosis without coma; E44.0 Moderate protein-calorie malnutrition; E87.0 Hyperosmolality and hypernatremia; N17.9 Acute kidney failure, unspecified; E03.9 Hypothyroidism, unspecified; E11.22 Type 2 diabetes mellitus with diabetic chronic kidney disease; E11.42 Type 2 diabetes mellitus with diabetic polyneuropathy; Z20.822 Contact with and (suspected) exposure to COVID-19; F17.210 Nicotine dependence, cigarettes, uncomplicated; F15.10 Other stimulant abuse, uncomplicated; E87.5 Hyperkalemia; I12.9 Hypertensive chronic kidney disease with stage 1 through stage 4 chronic kidney disease, or unspecified chronic kidney disease; K44.9 Diaphragmatic hernia without obstruction or gangrene; N18.9 Chronic kidney disease, unspecified; Z79.82 Long term (current) use of aspirin; Z79.899 Other long term (current) drug therapy; Z80.0 Family history of malignant neoplasm of digestive organs; Z82.0 Family history of epilepsy and other diseases of the nervous system; Z83.3 Family history of diabetes mellitus; Z85.07 Personal history of malignant neoplasm of pancreas; Z86.73 Personal history of transient ischemic attack (TIA), and cerebral infarction without residual deficits; Z53.29 Procedure and treatment not carried out because of patient's decision for other reasons; Z68.21 Body mass index [BMI] 21.0-21.9, adult
CPT/HCPCS: 36415; 36600; 70450; 74176; 80048; 80053; 80307; 80320; 81001; 82010; 82607; 82805; 82962; 83605; 84439; 84443; 84480; 84484; 85025; 87040; 87426; 99291; C9113; G0378; J0610; J0696; J1815; J2405

== ENCOUNTER 2020-08-24 18:56 | Emergency (ER) | payer OTHER, MEDICAID ==
[~2020-08-24] VITALS: Ht 188 cm; Wt 90.7 kg
[2020-08-24 23:37] LABS: Hematocrit 37.9 % (41.0-53.0); Hemoglobin 12.9 g/dL (13.5-17.5); Mean Corpuscular Hemoglobin 28.6 pg (28.0-32.0); Red Blood Cells 4.51 10^6/uL (4.5-5.90); Red Cell Distribution Width 12.2 % (11.8-14.3); White Blood Cell 10.4 10^3/uL (4.4-10.8)
[2020-08-24 23:41] LABS: Basophils % (manual) 0 (0.0-2.0); Blast Cells 0; Eosinophils % (manual) 0 (0-7); Myelocytes % 0; Promyelocytes % 0; Reactive Lymphocytes 0
[2020-08-24 23:49] LABS: Albumin 2.9 g/dL (3.4-5.0); Anion Gap 8 (5-15); Blood Urea Nitrogen 23 mg/dL (7-18); Calcium 8.2 mg/dL (8.5-10.1); Carbon Dioxide 29 mmol/L (21-32); Chloride 97 mmol/L (98-107); Glucose 186 mg/dL (74-106); Potassium 4.9 mmol/L (3.5-5.1); Sodium 134 mmol/L (136-145)
[2020-08-24 23:51] LABS: Alanine Aminotransferase 35 U/L (16-61); Aspartate Aminotransferase 48 U/L (15-37); BUN/Creatinine Ratio 15.2; GFR African American 64 mL/min; GFR Non-African American 53 mL/min
[2020-08-24 23:53] LABS: Alkaline Phosphatase 116 U/L (45-117); Bilirubin, Total 0.4 mg/dL (0.2-1.0)
[2020-08-25 00:13] LABS: Band Neutrophils % (manual) 24; Lymphocytes % (manual) 13 (10.0-50.0); Metamyelocytes % 5; Monocytes % (manual) 2 (0-12)
[2020-08-25] MEDS ORDERED: cloNIDine HCL 0.1 MG TAB ONE (02:13)
[2020-08-25] MEDS ORDERED: cloNIDine HCL 0.1 MG TAB PO ONE ×2 (02:15→03:30)
[2020-08-25] MEDS ORDERED: ACETAMINOPHEN 325 MG TAB PO ONE (02:45)
[2020-08-25] MEDS ORDERED: PROMETHAZINE HCL 25 MG/ML 1ML IV ONE (04:00)
[2020-08-25 04:35] VITALS: BP 172/96
== END 2020-08-25 05:00 | disposition home or self-care (01) ==
LOC: EDBD 18:56 → EDUNIT# 18:56 → ER 19:02
DX: K20.80 Other esophagitis without bleeding (principal); E11.9 Type 2 diabetes mellitus without complications; I16.0 Hypertensive urgency; F17.210 Nicotine dependence, cigarettes, uncomplicated; K21.9 Gastro-esophageal reflux disease without esophagitis; I10 Essential (primary) hypertension; Z79.899 Other long term (current) drug therapy
CPT/HCPCS: 36415; 36600; 71045; 71250; 74176; 80053; 80320; 82805; 82962; 83605; 84484; 85007; 85027; 87040; 96374; 99285; J2550; J7030

== ENCOUNTER 2020-08-27 12:58 | Emergency (ER) | payer OTHER, MEDICAID ==
[~2020-08-27] VITALS: Ht 195.6 cm; Wt 102.1 kg
[2020-08-27] MEDS ORDERED: SODIUM CHLORIDE 0.9% 1,000 ML IVB ONE (14:15)
[2020-08-27 16:13] LABS: Basophils # (auto) 0 10 ^3/uL (0-0.2); Basophils % (auto) 0.4 % (0.0-2.0); Eosinophils # (auto) 0.2 10 ^3/uL (0-0.8); Eosinophils % (auto) 2.3 % (0.0-7.0); Hematocrit 29.8 % (41.0-53.0); Hemoglobin 10.3 g/dL (13.5-17.5); Lymphocytes # (auto) 0.5 10 ^3/uL (0.4-5.4); Lymphocytes % (auto) 6.8 % (10.0-50.0); Mean Corpuscular Hemoglobin 29.2 pg (28.0-32.0); Mean Corpuscular Hgb Conc. 34.5 g/dL (32.0-36.0); Mean Corpuscular Volume 84.7 fL (80.0-100.0); Monocytes # (auto) 0.5 10 ^3/uL (0-1.3); Monocytes % (auto) 7.1 % (0.0-12.0); Neutrophils # (auto) 6.4 10 ^3/uL (1.6-8.6); Neutrophils % (auto) 83.4 % (37.0-80.0); Platelet Count (auto) 213 10^3/uL (140-450); Red Blood Cells 3.52 10^6/uL (4.5-5.90); Red Cell Distribution Width 12.6 % (11.8-14.3); White Blood Cell 7.6 10^3/uL (4.4-10.8)
[2020-08-27 16:29] LABS: Albumin 2.6 g/dL (3.4-5.0); Magnesium 1.5 mg/dL (1.6-2.6); Potassium 4.4 mmol/L (3.5-5.1)
[2020-08-27 16:32] LABS: BUN/Creatinine Ratio 12.9; Bilirubin, Total 0.2 mg/dL (0.2-1.0)
[2020-08-27 16:42] LABS: INR 0.98 (0.9-1.15); Partial Thromboplastin Time 25.6 sec (23.0-31.2)
[2020-08-27] MEDS: MAGNESIUM SULFATE 1GM/100ML 100 ML IV SCH ×2 (19:06→19:39)
[2020-08-27] MEDS ORDERED: HYDROcodone-ACET 5/325MG TAB PO STA (20:35)
[2020-08-27 21:10] LABS: Urine Bacteria NONE SEEN /hpf (None Seen); Urine Blood Negative /uL (Negative); Urine Hyaline Cast FEW /lpf (0 - 2); Urine Specific Gravity 1.013 (1.001-1.035); Urine WBC 1 /hpf (0 - 3)
[2020-08-27 21:23] LABS: Amphetamine Screen, Urine NEGATIVE (NEGATIVE); Barbiturate Scree,Urine NEGATIVE (NEGATIVE); Benzodiazephine Screen, Urine NEGATIVE (NEGATIVE); Cannabinoid Screen, Urine NEGATIVE (NEGATIVE); Cocaine Screen, Urine NEGATIVE (NEGATIVE); Opiate Scree,Urine NEGATIVE (NEGATIVE); Phencyclidine Screen, Urine NEGATIVE (NEGATIVE)
[2020-08-27] MEDS ORDERED: cefTRIAXone 1GM/50ML D5W 50 ML IV ONE (22:15)
[2020-08-27 22:37] VITALS: BP 142/84
== END 2020-08-27 22:42 | disposition short-term general hospital (02) ==
LOC: ER 12:58 → EDBD 12:58 → ER 22:42
DX: S27.1XXA Traumatic hemothorax, initial encounter (principal); S22.41XA Multiple fractures of ribs, right side, initial encounter for closed fracture; S27.321A Contusion of lung, unilateral, initial encounter; D50.8 Other iron deficiency anemias; F17.210 Nicotine dependence, cigarettes, uncomplicated; E11.22 Type 2 diabetes mellitus with diabetic chronic kidney disease; I12.9 Hypertensive chronic kidney disease with stage 1 through stage 4 chronic kidney disease, or unspecified chronic kidney disease; K21.9 Gastro-esophageal reflux disease without esophagitis; N18.32 Chronic kidney disease, stage 3b; Z20.822 Contact with and (suspected) exposure to COVID-19; W19.XXXA Unspecified fall, initial encounter; Y93.89 Activity, other specified; Y92.89 Other specified places as the place of occurrence of the external cause; Y99.8 Other external cause status
CPT/HCPCS: 36415; 70450; 71045; 71250; 72125; 74176; 80053; 80307; 81001; 82962; 83605; 83735; 84484; 85025; 85610; 85730; 87040; 87426; 93005; 96361; 96365; 96366; 96367; 99291; C9803; J0696; J3475; U0003; 96360

== ENCOUNTER 2020-10-04 21:19 | Emergency (ER) | payer MEDICAID, OTHER ==
[~2020-10-04] VITALS: Ht 188 cm; Wt 127.0 kg
[2020-10-04 22:56] LABS: Basophils # (auto) 0.1 10 ^3/uL (0-0.2); Basophils % (auto) 0.4 % (0.0-2.0); Eosinophils # (auto) 0.1 10 ^3/uL (0-0.8); Eosinophils % (auto) 0.4 % (0.0-7.0); Hemoglobin 11.6 g/dL (13.5-17.5); Lymphocytes # (auto) 0.4 10 ^3/uL (0.4-5.4); Lymphocytes % (auto) 2.6 % (10.0-50.0); Mean Corpuscular Hemoglobin 29.2 pg (28.0-32.0); Mean Corpuscular Hgb Conc. 33.2 g/dL (32.0-36.0); Mean Corpuscular Volume 87.9 fL (80.0-100.0); Monocytes # (auto) 0.7 10 ^3/uL (0-1.3); Monocytes % (auto) 4.6 % (0.0-12.0); Neutrophils # (auto) 14.2 10 ^3/uL (1.6-8.6); Nucleated Red Blood Cells % 0.1 %; Platelet Count (auto) 307 10^3/uL (140-450); Red Blood Cells 3.99 10^6/uL (4.5-5.90); Red Cell Distribution Width 14.5 % (11.8-14.3); White Blood Cell 15.5 10^3/uL (4.4-10.8)
[2020-10-04 23:19] LABS: INR 1.03 (0.9-1.15); Partial Thromboplastin Time 28.6 sec (23.0-31.2)
[2020-10-04 23:20] LABS: Albumin 3.8 g/dL (3.4-5.0); Anion Gap 6 (5-15); Blood Urea Nitrogen 31 mg/dL (7-18); Carbon Dioxide 26 mmol/L (21-32); Chloride 107 mmol/L (98-107); Potassium 4.8 mmol/L (3.5-5.1); Sodium 139 mmol/L (136-145)
[2020-10-04 23:28] LABS: Alanine Aminotransferase 37 U/L (16-61); Alkaline Phosphatase 112 U/L (45-117); Aspartate Aminotransferase 30 U/L (15-37); BUN/Creatinine Ratio 20.4; Bilirubin, Total 0.4 mg/dL (0.2-1.0); GFR African American 64 mL/min; GFR Non-African American 53 mL/min; Glucose 99 mg/dL (74-106); Total Protein 7.7 g/dL (6.4-8.2)
[2020-10-05 01:30] VITALS: BP 139/70
[2020-10-05] MEDS ORDERED: diphenhdrAMINE HCL 50 MG/1 ML VL IV ONE (03:30)
[2020-10-05] MEDS ORDERED: LORazepam 2MG/ML-1ML VIAL IV ONE (03:30)
== END 2020-10-05 05:24 | disposition home or self-care (01) ==
LOC: EDBD 21:19 → ER 21:19
DX: T88.7XXA Unspecified adverse effect of drug or medicament, initial encounter (principal); T38.3X5A Adverse effect of insulin and oral hypoglycemic [antidiabetic] drugs, initial encounter; D72.829 Elevated white blood cell count, unspecified; F17.210 Nicotine dependence, cigarettes, uncomplicated; I10 Essential (primary) hypertension; E11.9 Type 2 diabetes mellitus without complications; K21.9 Gastro-esophageal reflux disease without esophagitis; Z79.899 Other long term (current) drug therapy; Z20.822 Contact with and (suspected) exposure to COVID-19; Y92.89 Other specified places as the place of occurrence of the external cause
CPT/HCPCS: 36415; 70450; 71045; 80053; 82962; 83735; 83880; 84484; 85025; 85379; 85610; 85730; 87426; 96374; 96375; 99285; C9803; J1200; J2060; U0003

== ENCOUNTER 2020-10-13 19:29 | Emergency (ER) | payer MEDICAID ==
[~2020-10-13] VITALS: Ht 193 cm; Wt 102.1 kg
[2020-10-13 23:36] LABS: Albumin 3.7 g/dL (3.4-5.0); Anion Gap 7 (5-15); Blood Urea Nitrogen 24 mg/dL (7-18); Calcium 8.3 mg/dL (8.5-10.1); Carbon Dioxide 26 mmol/L (21-32); Chloride 103 mmol/L (98-107); Glucose 190 mg/dL (74-106); Potassium 5.1 mmol/L (3.5-5.1); Sodium 136 mmol/L (136-145)
[2020-10-13 23:38] LABS: Alanine Aminotransferase 34 U/L (16-61); Aspartate Aminotransferase 36 U/L (15-37); BUN/Creatinine Ratio 14.6; GFR African American 58 mL/min; GFR Non-African American 48 mL/min
[2020-10-13 23:41] LABS: Alkaline Phosphatase 117 U/L (45-117); Bilirubin, Total 0.3 mg/dL (0.2-1.0); Total Protein 7.6 g/dL (6.4-8.2)
[2020-10-13 23:46] LABS: Basophils # (auto) 0.1 10 ^3/uL (0-0.2); Basophils % (auto) 0.8 % (0.0-2.0); Eosinophils # (auto) 0.4 10 ^3/uL (0-0.8); Eosinophils % (auto) 5.5 % (0.0-7.0); Hematocrit 32.9 % (41.0-53.0); Hemoglobin 10.9 g/dL (13.5-17.5); Lymphocytes # (auto) 0.8 10 ^3/uL (0.4-5.4); Lymphocytes % (auto) 11.4 % (10.0-50.0); Mean Corpuscular Hemoglobin 28.9 pg (28.0-32.0); Mean Corpuscular Hgb Conc. 33.2 g/dL (32.0-36.0); Monocytes # (auto) 0.5 10 ^3/uL (0-1.3); Monocytes % (auto) 7.4 % (0.0-12.0); Neutrophils # (auto) 5.3 10 ^3/uL (1.6-8.6); Neutrophils % (auto) 74.9 % (37.0-80.0); Platelet Count (auto) 368 10^3/uL (140-450); Red Blood Cells 3.78 10^6/uL (4.5-5.90); Red Cell Distribution Width 14.5 % (11.8-14.3)
[2020-10-14 00:25] VITALS: BP 122/71
== END 2020-10-14 00:59 | disposition home or self-care (01) ==
LOC: EDBD 19:29 → ER 19:29
DX: E11.649 Type 2 diabetes mellitus with hypoglycemia without coma (principal); I10 Essential (primary) hypertension; K21.9 Gastro-esophageal reflux disease without esophagitis; F17.210 Nicotine dependence, cigarettes, uncomplicated; Z79.899 Other long term (current) drug therapy; Z79.4 Long term (current) use of insulin
CPT/HCPCS: 36415; 80053; 82962; 85025

== ENCOUNTER 2020-10-14 20:28 | Emergency (ER) | payer MEDICAID ==
[~2020-10-14] VITALS: Ht 195.6 cm; Wt 113.4 kg
[2020-10-14 20:51] VITALS: BP 180/98
== END 2020-10-14 22:04 | disposition left against medical advice (07) ==
LOC: EDBD 20:28 → ER 20:34
DX: E11.649 Type 2 diabetes mellitus with hypoglycemia without coma (principal); T38.3X5A Adverse effect of insulin and oral hypoglycemic [antidiabetic] drugs, initial encounter; E11.9 Type 2 diabetes mellitus without complications; K21.9 Gastro-esophageal reflux disease without esophagitis; I10 Essential (primary) hypertension; F17.210 Nicotine dependence, cigarettes, uncomplicated; Z86.73 Personal history of transient ischemic attack (TIA), and cerebral infarction without residual deficits; Z79.899 Other long term (current) drug therapy; Y92.89 Other specified places as the place of occurrence of the external cause

== ENCOUNTER 2020-11-01 18:37 | Emergency (ER) | payer MEDICAID ==
[~2020-11-01] VITALS: Ht 195.6 cm; Wt 77.1 kg
[2020-11-01] MEDS ORDERED: SODIUM CHLORIDE 0.9% 1,000 ML IV ONE (19:45)
[2020-11-01] MEDS ORDERED: InsuLIN REG 1unit/0.01ml Soln (100units/ml) IV ONE ×2 (19:45→21:15)
[2020-11-01] MEDS ORDERED: ONDANSETRON HCL 4 MG/2 ML VIAL IV ONE (19:45)
[2020-11-01] MEDS ORDERED: MORPHINE SULFATE 4 MG/ML SYR/VIAL IV ONE (19:45)
[2020-11-01 20:25] LABS: Basophils # (auto) 0.1 10 ^3/uL (0-0.2); Basophils % (auto) 0.7 % (0.0-2.0); Eosinophils # (auto) 0.1 10 ^3/uL (0-0.8); Eosinophils % (auto) 0.9 % (0.0-7.0); Hematocrit 31.4 % (41.0-53.0); Hemoglobin 10.6 g/dL (13.5-17.5); Lymphocytes # (auto) 0.7 10 ^3/uL (0.4-5.4); Lymphocytes % (auto) 6.3 % (10.0-50.0); Mean Corpuscular Hemoglobin 28.5 pg (28.0-32.0); Mean Corpuscular Hgb Conc. 33.7 g/dL (32.0-36.0); Mean Corpuscular Volume 84.8 fL (80.0-100.0); Monocytes # (auto) 0.8 10 ^3/uL (0-1.3); Neutrophils # (auto) 10.1 10 ^3/uL (1.6-8.6); Neutrophils % (auto) 85.1 % (37.0-80.0); Nucleated Red Blood Cells % 0.1 %; Platelet Count (auto) 326 10^3/uL (140-450); Red Blood Cells 3.71 10^6/uL (4.5-5.90); White Blood Cell 11.8 10^3/uL (4.4-10.8)
[2020-11-01 20:41] LABS: Albumin 3.5 g/dL (3.4-5.0); Anion Gap 15 (5-15); Blood Urea Nitrogen 55 mg/dL (7-18); Calcium 8.8 mg/dL (8.5-10.1); Carbon Dioxide 24 mmol/L (21-32); Chloride 92 mmol/L (98-107); Magnesium 2.2 mg/dL (1.6-2.6); Potassium 4.1 mmol/L (3.5-5.1); Sodium 131 mmol/L (136-145)
[2020-11-01 20:44] LABS: INR 1.05 (0.9-1.15); Partial Thromboplastin Time 27.1 sec (23.0-31.2)
[2020-11-01 20:47] LABS: Alanine Aminotransferase 52 U/L (16-61); Alkaline Phosphatase 147 U/L (45-117); Aspartate Aminotransferase 27 U/L (15-37); Bilirubin, Total 0.6 mg/dL (0.2-1.0); GFR African American 33 mL/min; GFR Non-African American 28 mL/min; Total Protein 7.3 g/dL (6.4-8.2)
[2020-11-01 20:51] LABS: BUN/Creatinine Ratio 20.7; Glucose 475 mg/dL (74-106)
[2020-11-01] MEDS ORDERED: HYDROmorphone HCL 2 MG/ML VL IV ONE (22:45)
[2020-11-02] MEDS ORDERED: AZITHROMYCIN 500MG/ 250ML 250 ML IV ONE (00:30)
[2020-11-02] MEDS ORDERED: DOXYCYCLINE 100MG/250ML 250 ML IV ONE (00:30)
[2020-11-02] MEDS ORDERED: DexAMETHasone SOD PHOS 10MG/1ML VIAL INJ IV ONE (00:30)
[2020-11-02] MEDS ORDERED: HYDROmorphone HCL 2 MG/ML VL IV ONE ×2 (04:30→08:45)
[2020-11-02] MEDS ORDERED: InsuLIN REG 1unit/0.01ml Soln (100units/ml) IV ONE (05:30)
[2020-11-02 08:40] VITALS: BP 128/59
[2020-11-02] MEDS ORDERED: ONDANSETRON HCL 4 MG/2 ML VIAL IV ONE (08:45)
== END 2020-11-02 09:22 | disposition short-term general hospital (02) ==
LOC: EDBD 18:37 → EDSEX 18:37 → ER 18:39
DX: S42.292A Other displaced fracture of upper end of left humerus, initial encounter for closed fracture (principal); S32.512A Fracture of superior rim of left pubis, initial encounter for closed fracture; E11.65 Type 2 diabetes mellitus with hyperglycemia; J18.9 Pneumonia, unspecified organism; R55 Syncope and collapse; K21.9 Gastro-esophageal reflux disease without esophagitis; I10 Essential (primary) hypertension; F17.210 Nicotine dependence, cigarettes, uncomplicated; Z91.14 Patient's other noncompliance with medication regimen; Z86.73 Personal history of transient ischemic attack (TIA), and cerebral infarction without residual deficits; Z20.822 Contact with and (suspected) exposure to COVID-19; Z79.4 Long term (current) use of insulin; Z79.899 Other long term (current) drug therapy; X58.XXXA Exposure to other specified factors, initial encounter; Y93.89 Activity, other specified; Y92.89 Other specified places as the place of occurrence of the external cause; Y99.8 Other external cause status
CPT/HCPCS: 29105; 36415; 36600; 70450; 71045; 71250; 72125; 72192; 73060; 73090; 73502; 80053; 80320; 82010; 82728; 82805; 82962; 83735; 83880; 84484; 85025; 85379; 85610; 85730; 87040; 87426; 93005; 96361; 96365; 96366; 96367; 96375; 96376; 99285; J0456; J1100; J1170; J1815; J2270; J2405; J3490; J7030

== ENCOUNTER 2020-12-25 20:14 | Emergency (ER) | payer MEDICAID ==
[~2020-12-25] VITALS: Ht 182.9 cm; Wt 81.6 kg
[2020-12-25 21:01] VITALS: BP 160/69
[2020-12-25 22:41] LABS: Basophils # (auto) 0.1 10 ^3/uL (0-0.2); Basophils % (auto) 0.5 % (0.0-2.0); Eosinophils # (auto) 0.3 10 ^3/uL (0-0.8); Hemoglobin 9.8 g/dL (13.5-17.5)
[2020-12-25 22:44] LABS: Eosinophils % (auto) 1.9 % (0.0-7.0); Hematocrit 28.8 % (41.0-53.0); Lymphocytes # (auto) 0.7 10 ^3/uL (0.4-5.4); Lymphocytes % (auto) 5.1 % (10.0-50.0); Mean Corpuscular Hemoglobin 28.3 pg (28.0-32.0); Mean Corpuscular Hgb Conc. 33.9 g/dL (32.0-36.0); Mean Corpuscular Volume 83.3 fL (80.0-100.0); Monocytes # (auto) 0.6 10 ^3/uL (0-1.3); Neutrophils # (auto) 12.9 10 ^3/uL (1.6-8.6); Neutrophils % (auto) 88.5 % (37.0-80.0); Red Blood Cells 3.46 10^6/uL (4.5-5.90); Red Cell Distribution Width 13.2 % (11.8-14.3); White Blood Cell 14.6 10^3/uL (4.4-10.8)
[2020-12-25 23:00] LABS: Potassium 4.8 mmol/L (3.5-5.1)
[2020-12-25 23:04] LABS: BUN/Creatinine Ratio 18.7; Bilirubin, Total 0.2 mg/dL (0.2-1.0); Total Protein 7.7 g/dL (6.4-8.2)
== END 2020-12-25 23:02 | disposition left against medical advice (07) ==
LOC: ER 20:14 → EDBD 20:14 → ER 23:02
DX: E11.649 Type 2 diabetes mellitus with hypoglycemia without coma (principal); K21.9 Gastro-esophageal reflux disease without esophagitis; I10 Essential (primary) hypertension; F17.210 Nicotine dependence, cigarettes, uncomplicated; Z86.73 Personal history of transient ischemic attack (TIA), and cerebral infarction without residual deficits
CPT/HCPCS: 36415; 80053; 82962; 83036; 83605; 85025; 85049; 85652

== ENCOUNTER 2021-01-13 21:28 | Emergency (ER) | payer MEDICAID ==
[~2021-01-13] VITALS: Ht 188 cm; Wt 96.6 kg
[2021-01-13 22:38] LABS: Basophils # (auto) 0.1 10 ^3/uL (0-0.2); Basophils % (auto) 0.3 % (0.0-2.0); Eosinophils # (auto) 0.1 10 ^3/uL (0-0.8); Eosinophils % (auto) 0.4 % (0.0-7.0); Hematocrit 29.5 % (41.0-53.0); Hemoglobin 9.7 g/dL (13.5-17.5); Lymphocytes # (auto) 0.5 10 ^3/uL (0.4-5.4); Lymphocytes % (auto) 3.2 % (10.0-50.0); Mean Corpuscular Hemoglobin 27.1 pg (28.0-32.0); Mean Corpuscular Volume 82.3 fL (80.0-100.0); Monocytes # (auto) 1.4 10 ^3/uL (0-1.3); Monocytes % (auto) 8.1 % (0.0-12.0); Neutrophils # (auto) 14.8 10 ^3/uL (1.6-8.6); Red Blood Cells 3.58 10^6/uL (4.5-5.90); Red Cell Distribution Width 13.3 % (11.8-14.3); White Blood Cell 16.9 10^3/uL (4.4-10.8)
[2021-01-13 22:59] LABS: Potassium 4.6 mmol/L (3.5-5.1)
[2021-01-13 23:03] LABS: BUN/Creatinine Ratio 14.2
[2021-01-13 23:04] LABS: Albumin 3.2 g/dL (3.4-5.0); Bilirubin, Total 0.5 mg/dL (0.2-1.0); Calcium 8.2 mg/dL (8.5-10.1)
[2021-01-14] MEDS ORDERED: SODIUM CHLORIDE 0.9% 1,000 ML IV ONE (01:30)
[2021-01-14] MEDS ORDERED: MORPHINE SULF INJ 2 MG/ML SYRINGE 1ML IV ONE (02:15)
[2021-01-14] MEDS ORDERED: ONDANSETRON HCL 4 MG/2 ML VIAL IV ONE (02:15)
[2021-01-14] MEDS ORDERED: InsuLIN REG 1unit/0.01ml Soln (100units/ml) IV ONE ×2 (02:45→05:15)
[2021-01-14] MEDS ORDERED: VANCOMYCIN 1GM/250ML 250 ML IV ONE (03:00)
[2021-01-14] MEDS ORDERED: PIPERACILLIN-TAZOB 2.25GM 50 ML IV ONE (03:00)
[2021-01-14] MEDS ORDERED: ACETAMINOPHEN 500 MG TAB PO ONE (04:45)
[2021-01-14 07:58] VITALS: BP 148/71
== END 2021-01-14 08:16 | disposition short-term general hospital (02) ==
LOC: ER 21:28
DX: E11.65 Type 2 diabetes mellitus with hyperglycemia (principal); E11.621 Type 2 diabetes mellitus with foot ulcer; L97.419 Non-pressure chronic ulcer of right heel and midfoot with unspecified severity; K21.9 Gastro-esophageal reflux disease without esophagitis; I10 Essential (primary) hypertension; F17.210 Nicotine dependence, cigarettes, uncomplicated; Z86.73 Personal history of transient ischemic attack (TIA), and cerebral infarction without residual deficits; Z20.822 Contact with and (suspected) exposure to COVID-19
CPT/HCPCS: 36415; 71045; 73700; 80053; 82962; 83605; 85025; 87040; 87426; 96361; 96365; 96366; 96367; 96375; 96376; 99285; J2270; J2405; J2543; J3370; J7030

== ENCOUNTER 2021-02-10 19:59 | Emergency (ER) | payer MEDICAID ==
[~2021-02-10] VITALS: Ht 193 cm; Wt 95.3 kg
[2021-02-10] MEDS ORDERED: ONDANSETRON HCL 4 MG/2 ML VIAL IV ONE (20:30)
[2021-02-10] MEDS ORDERED: SODIUM CHLORIDE 0.9% 500 ML IV ONE (20:30)
[2021-02-10 21:30] VITALS: BP 144/77
[2021-02-10] MEDS ORDERED: ACETAMINOPHEN 500 MG TAB PO ONE (22:00)
== END 2021-02-10 23:03 | disposition home or self-care (01) ==
LOC: EDBD 19:59 → ER 20:00
DX: R11.2 Nausea with vomiting, unspecified (principal); J18.9 Pneumonia, unspecified organism; I12.9 Hypertensive chronic kidney disease with stage 1 through stage 4 chronic kidney disease, or unspecified chronic kidney disease; E11.22 Type 2 diabetes mellitus with diabetic chronic kidney disease; N18.30 Chronic kidney disease, stage 3 unspecified; K21.9 Gastro-esophageal reflux disease without esophagitis; E78.5 Hyperlipidemia, unspecified; F17.210 Nicotine dependence, cigarettes, uncomplicated; Z86.73 Personal history of transient ischemic attack (TIA), and cerebral infarction without residual deficits; Z79.4 Long term (current) use of insulin; Z79.899 Other long term (current) drug therapy; Z20.822 Contact with and (suspected) exposure to COVID-19
CPT/HCPCS: 36415; 71045; 74176; 87426

== ENCOUNTER 2021-02-13 11:56 | Inpatient (IN) | payer MEDICAID ==
[~2021-02-13] VITALS: Ht 193 cm; Wt 92.1 kg
[2021-02-13] MEDS ORDERED: InsuLIN REG 1unit/0.01ml Soln (100units/ml) IV ONE (12:45)
[2021-02-13] MEDS ORDERED: PIPERACILLIN-TAZOB 3.375GM 100 ML IV ONE (12:45)
[2021-02-13] MEDS ORDERED: SODIUM CHLORIDE 0.9% 1,000 ML IV ONE ×2 (12:45)
[2021-02-13 13:56] LABS: Hemoglobin 8.9 g/dL (13.5-17.5); White Blood Cell 8.1 10^3/uL (4.4-10.8)
[2021-02-13 13:57] LABS: Hematocrit 32.2 % (41.0-53.0); Mean Corpuscular Hemoglobin 27.8 pg (28.0-32.0); Mean Corpuscular Hgb Conc. 27.6 g/dL (32.0-36.0); Mean Corpuscular Volume 100.5 fL (80.0-100.0); Red Blood Cells 3.21 10^6/uL (4.5-5.90); Red Cell Distribution Width 16.6 % (11.8-14.3)
[2021-02-13 14:03] LABS: Basophils % (manual) 0 (0.0-2.0); Blast Cells 0; Eosinophils % (manual) 0 (0-7); Monocytes % (manual) 0 (0-12); Promyelocytes % 0; Reactive Lymphocytes 0
[2021-02-13] MEDS ORDERED: DEXTROSE (50%) 50ML SYRG IV PRN ×3 (14:15→20:30)
[2021-02-13] MEDS ORDERED: InsuLIN R (HUMAN) 100 UNITS in SODIUM CHL 0.9% 99 ML IV SCH ×3 (14:15→23:30)
[2021-02-13] MEDS ORDERED: INSULIN LANTUS (GLARGINE) 1 /0.01ml (100units/ml) SC ONE (14:15)
[2021-02-13 14:17] LABS: Albumin 2.7 g/dL (3.4-5.0); Anion Gap 34 (5-15); Calcium 7.1 mg/dL (8.5-10.1); Chloride 93 mmol/L (98-107); Magnesium 2.8 mg/dL (1.6-2.6); Potassium 5.4 mmol/L (3.5-5.1); Sodium 133 mmol/L (136-145)
[2021-02-13 14:18] LABS: Band Neutrophils % (manual) 8; Lymphocytes % (manual) 15 (10.0-50.0); Metamyelocytes % 8; Myelocytes % 1
[2021-02-13 14:20] LABS: Alanine Aminotransferase 43 U/L (16-61); Aspartate Aminotransferase 36 U/L (15-37); Bilirubin, Total 0.4 mg/dL (0.2-1.0); GFR African American 18 mL/min; GFR Non-African American 15 mL/min; Total Protein 7.6 g/dL (6.4-8.2)
[2021-02-13 14:23] LABS: Lactic Acid w/Reflex 3.6 mmol/L (0.4-2.0)
[2021-02-13 14:26] LABS: Alkaline Phosphatase 111 U/L (45-117)
[2021-02-13 14:28] LABS: Carbon Dioxide 6 mmol/L (21-32)
[2021-02-13 14:29] LABS: Glucose 1531 mg/dL (74-106)
[2021-02-13] MEDS ORDERED: SODIUM BICARBONATE 8.4 % INJ 50ML VIAL IV ONE (14:30)
[2021-02-13] MEDS ORDERED: SUCCINYLCHOLINE CHLORIDE 20 MG/ML 10ML VIAL IV ONE ×2 (14:34→14:45)
[2021-02-13] MEDS ORDERED: ETOMIDATE (2MG/ML) 20ML VIAL IV ONE ×2 (14:34→14:45)
[2021-02-13] MEDS ORDERED: MIDAZOLAM DRIP 50 mg/50mL 50 ML IV ONE (14:41)
[2021-02-13 14:56] LABS: BUN/Creatinine Ratio 20.5; Blood Urea Nitrogen 94 mg/dL (7-18)
[2021-02-13 15:04] VITALS: BP 129/42
[2021-02-13 15:05] VITALS: BP 99/42
[2021-02-13] MEDS: ACCU-CHEK COMFORT CURVE STRIP VI SCH ×5 (15:05→22:33)
[2021-02-13] MEDS ORDERED: SODIUM BICARBONATE 8.4% INJ 50ML SYRINGE ONE (15:11)
[2021-02-13] MEDS: MIDAZOLAM DRIP 50 mg/50mL 50 ML IV SCH (15:12)
[2021-02-13 15:18] LABS: Urine Bacteria NONE SEEN /hpf (None Seen); Urine Blood Negative /uL (Negative); Urine Specific Gravity 1.017 (1.001-1.035); Urine WBC 1 /hpf (0 - 3)
[2021-02-13] MEDS: fentaNYL Drip 2500mCg/250mlNS 250 ML IV SCH (15:50)
[2021-02-13] MEDS: NOREPINEPHRINE 8 MG/250ML KIT 250 ML IV SCH (16:07)
[2021-02-13 16:34] VITALS: BP 124/65
[2021-02-13] MEDS ORDERED: SODIUM CHLORIDE 0.9% 3,000 ML IV ONE (18:45)
[2021-02-13] MEDS: SODIUM CHLORIDE 0.9% 1,000 ML IV SCH ×2 (18:45→23:45)
[2021-02-13] MEDS ORDERED: NITROGLYCERIN 0.4 MG SL TAB SL PRN (18:45)
[2021-02-13] MEDS ORDERED: MORPHINE SULFATE INJECTION 2 MG/ML SYRG IV PRN (18:45)
[2021-02-13 18:55] VITALS: BP 115/62
[2021-02-13 19:56] VITALS: BP 112/64
[2021-02-13] MEDS ORDERED: InsuLIN REG 1unit/0.01ml Soln (100units/ml) SC SCH (20:00)
[2021-02-13] MEDS ORDERED: ACCU-CHEK COMFORT CURVE STRIP VI SCH (20:00)
[2021-02-13] MEDS: SOD CHL 0.9%/ KCL 20MEQ 1,000 ML IV SCH (21:20)
[2021-02-13 21:44] VITALS: BP 119/65
[2021-02-13] MEDS ORDERED: DOPamine 1600MCG/ML D5W 250 ML IV ONE (22:06)
[2021-02-13] MEDS ORDERED: DOPamine 1600MCG/ML D5W 250 ML IV SCH (22:15)
[2021-02-13 22:59] LABS: Calcium 6.8 mg/dL (8.5-10.1); Potassium 3.2 mmol/L (3.5-5.1)
[2021-02-14] VITALS (10 sets, daily range): BP systolic 106–198; BP diastolic 56–90
[2021-02-14] MEDS: ACCU-CHEK COMFORT CURVE STRIP VI SCH ×16 (00:09→22:48)
[2021-02-14] MEDS: DOPamine 1600MCG/ML D5W 250 ML IV SCH ×2 (00:45→18:18)
[2021-02-14] MEDS: InsuLIN R (HUMAN) 100 UNITS in SODIUM CHL 0.9% 99 ML IV SCH ×4 (01:30→19:35)
[2021-02-14 03:36] LABS: BUN/Creatinine Ratio 20.7; Calcium 6.6 mg/dL (8.5-10.1)
[2021-02-14] MEDS: SOD CHL 0.9%/ KCL 20MEQ 1,000 ML IV SCH (04:12)
[2021-02-14 04:36] LABS: Hematocrit 24.7 % (41.0-53.0); Hemoglobin 8.3 g/dL (13.5-17.5); Mean Corpuscular Hemoglobin 28.3 pg (28.0-32.0); Mean Corpuscular Hgb Conc. 33.6 g/dL (32.0-36.0); Mean Corpuscular Volume 84.3 fL (80.0-100.0); Red Blood Cells 2.93 10^6/uL (4.5-5.90); Red Cell Distribution Width 15.6 % (11.8-14.3); White Blood Cell 10.1 10^3/uL (4.4-10.8)
[2021-02-14 04:38] LABS: Basophils % (manual) 0 (0.0-2.0); Blast Cells 0; Eosinophils % (manual) 0 (0-7); Promyelocytes % 0; Reactive Lymphocytes 0
[2021-02-14] MEDS ORDERED: InsuLIN REG 1unit/0.01ml Soln (100units/ml) ONE ×2 (04:44→05:19)
[2021-02-14 04:52] LABS: INR 1.49 (0.9-1.15)
[2021-02-14 04:58] LABS: Calcium 6.6 mg/dL (8.5-10.1)
[2021-02-14 05:04] LABS: Albumin 2.4 g/dL (3.4-5.0); BUN/Creatinine Ratio 20.7; Bilirubin, Total 0.2 mg/dL (0.2-1.0); Magnesium 2.6 mg/dL (1.6-2.6)
[2021-02-14 05:24] LABS: Thyroid Stimulating Hormone 3.67 uIU/mL (0.358-3.74)
[2021-02-14] MEDS: SODIUM CHLORIDE 0.9% 1,000 ML IV SCH ×2 (05:56→08:39)
[2021-02-14 06:33] LABS: Lymphocytes % (manual) 13 (10.0-50.0); Monocytes % (manual) 3 (0-12); Myelocytes % 2
[2021-02-14 06:35] LABS: Band Neutrophils % (manual) 24; Metamyelocytes % 5
[2021-02-14] MEDS: PANTOPRAZOLE 40 MG/10 ML VIAL INJ IV SCH (08:39)
[2021-02-14] MEDS: INSULIN LANTUS (GLARGINE) 1 /0.01ml (100units/ml) SC SCH (08:39)
[2021-02-14] MEDS: AZITHROMYCIN 500MG/ 250ML 250 ML IV SCH (08:39)
[2021-02-14] MEDS: cefTRIAXone 1GM/50ML D5W 50 ML IV SCH (08:39)
[2021-02-14] MEDS: ENOXAPARIN SOD 30 MG/0.3 ML SYRINGE SC SCH (08:40)
[2021-02-14 09:02] LABS: BUN/Creatinine Ratio 20.1; Calcium 6.5 mg/dL (8.5-10.1); Potassium 3.1 mmol/L (3.5-5.1)
[2021-02-14] MEDS ORDERED: DexAMETHasone SOD PHOS 10MG/1ML VIAL INJ IV SCH (10:00)
[2021-02-14] MEDS ORDERED: AZITHROMYCIN 500MG/ 250ML 250 ML IV SCH (10:00)
[2021-02-14] MEDS: SOD CHL 0.45% 1,000 ML IV SCH ×2 (12:23→20:10)
[2021-02-14 12:55] LABS: BUN/Creatinine Ratio 19.9; Calcium 6.7 mg/dL (8.5-10.1); Potassium 3.3 mmol/L (3.5-5.1)
[2021-02-14] MEDS: MIDAZOLAM DRIP 50 mg/50mL 50 ML IV SCH (14:45)
[2021-02-14] MEDS: CLINDAMYCIN 300MG IV 50 ML IV SCH ×2 (14:58→22:01)
[2021-02-14] MEDS: NOREPINEPHRINE 8 MG/250ML KIT 250 ML IV SCH (15:15)
[2021-02-14] MEDS: fentaNYL Drip 2500mCg/250mlNS 250 ML IV SCH (15:15)
[2021-02-14 16:31] LABS: BUN/Creatinine Ratio 20.5; Potassium 3.4 mmol/L (3.5-5.1)
[2021-02-14 21:30] LABS: BUN/Creatinine Ratio 23.3; Potassium 3.7 mmol/L (3.5-5.1)
[2021-02-14] MEDS: hydrALAZINE HCL 20 MG/ML VL IV PRN (22:01)
[2021-02-15] VITALS (9 sets, daily range): BP systolic 115–188; BP diastolic 68–98
[2021-02-15] MEDS: cloNIDine HCL 0.1 MG TAB NG PRN ×2 (00:45→20:19)
[2021-02-15] MEDS: ACCU-CHEK COMFORT CURVE STRIP VI SCH ×10 (01:17→23:40)
[2021-02-15] MEDS: InsuLIN R (HUMAN) 100 UNITS in SODIUM CHL 0.9% 99 ML IV SCH (03:00)
[2021-02-15] MEDS: SOD CHL 0.45% 1,000 ML IV SCH ×3 (04:28→20:18)
[2021-02-15] MEDS: hydrALAZINE HCL 20 MG/ML VL IV PRN ×3 (04:41→23:23)
[2021-02-15] MEDS: CLINDAMYCIN 300MG IV 50 ML IV SCH ×3 (06:18→22:23)
[2021-02-15] MEDS ORDERED: DEXTROSE (50%) 50ML SYRG IV PRN (08:30)
[2021-02-15] MEDS ORDERED: InsuLIN R (HUMAN) 100 UNITS in SODIUM CHL 0.9% 99 ML IV SCH (08:30)
[2021-02-15] MEDS: ENOXAPARIN SOD 30 MG/0.3 ML SYRINGE SC SCH (08:45)
[2021-02-15] MEDS: INSULIN LANTUS (GLARGINE) 1 /0.01ml (100units/ml) SC SCH (08:45)
[2021-02-15] MEDS: cefTRIAXone 1GM/50ML D5W 50 ML IV SCH (08:47)
[2021-02-15] MEDS: PANTOPRAZOLE 40 MG/10 ML VIAL INJ IV SCH (08:47)
[2021-02-15] MEDS: DOPamine 1600MCG/ML D5W 250 ML IV SCH (10:25)
[2021-02-15] MEDS: AZITHROMYCIN 500MG/ 250ML 250 ML IV SCH (10:30)
[2021-02-15] MEDS: InsuLIN REG 1unit/0.01ml Soln (100units/ml) SC SCH ×4 (12:27→23:40)
[2021-02-15 14:15] LABS: Hemoglobin 8.1 g/dL (13.5-17.5); Nucleated Red Blood Cells % 0.1 %
[2021-02-15 14:17] LABS: Basophils # (auto) 0 10 ^3/uL (0-0.2); Basophils % (auto) 0.1 % (0.0-2.0); Eosinophils # (auto) 0 10 ^3/uL (0-0.8); Hematocrit 23.7 % (41.0-53.0); Lymphocytes # (auto) 0.5 10 ^3/uL (0.4-5.4); Lymphocytes % (auto) 5.2 % (10.0-50.0); Mean Corpuscular Hgb Conc. 34.2 g/dL (32.0-36.0); Mean Corpuscular Volume 81.8 fL (80.0-100.0); Monocytes # (auto) 0.4 10 ^3/uL (0-1.3); Monocytes % (auto) 3.9 % (0.0-12.0); Neutrophils # (auto) 8.6 10 ^3/uL (1.6-8.6); Neutrophils % (auto) 90.8 % (37.0-80.0); Red Cell Distribution Width 15.5 % (11.8-14.3); White Blood Cell 9.5 10^3/uL (4.4-10.8)
[2021-02-15 14:29] LABS: Phosphorus 3.4 mg/dL (2.5-4.90)
[2021-02-15] MEDS: NOREPINEPHRINE 8 MG/250ML KIT 250 ML IV SCH (15:15)
[2021-02-15] MEDS: FREE WATER GT SCH ×3 (15:43→22:23)
[2021-02-15] MEDS: LORazepam 2MG/ML-1ML VIAL IV PRN (17:33)
[2021-02-15] MEDS: fentaNYL Drip 2500mCg/250mlNS 250 ML IV SCH (22:25)
[2021-02-15] MEDS ORDERED: hydrALAZINE HCL 20 MG/ML VL ONE (23:08)
[2021-02-16] VITALS (10 sets, daily range): BP systolic 120–175; BP diastolic 36–92
[2021-02-16] MEDS: FREE WATER GT SCH ×8 (01:59→21:58)
[2021-02-16] MEDS: DOPamine 1600MCG/ML D5W 250 ML IV SCH (02:44)
[2021-02-16] MEDS: cloNIDine HCL 0.1 MG TAB NG PRN (02:48)
[2021-02-16] MEDS: SOD CHL 0.45% 1,000 ML IV SCH (03:52)
[2021-02-16] MEDS: ACCU-CHEK COMFORT CURVE STRIP VI SCH ×5 (03:53→20:19)
[2021-02-16] MEDS: InsuLIN REG 1unit/0.01ml Soln (100units/ml) SC SCH ×5 (03:53→20:00)
[2021-02-16] MEDS: hydrALAZINE HCL 20 MG/ML VL IV PRN ×2 (04:10→23:02)
[2021-02-16 05:04] LABS: Basophils # (auto) 0 10 ^3/uL (0-0.2); Basophils % (auto) 0.2 % (0.0-2.0); Eosinophils # (auto) 0 10 ^3/uL (0-0.8); Hemoglobin 7.9 g/dL (13.5-17.5); Lymphocytes # (auto) 0.7 10 ^3/uL (0.4-5.4); Monocytes # (auto) 0.2 10 ^3/uL (0-1.3)
[2021-02-16 05:07] LABS: Hematocrit 23.3 % (41.0-53.0); Lymphocytes % (auto) 9.9 % (10.0-50.0); Mean Corpuscular Hemoglobin 27.9 pg (28.0-32.0); Mean Corpuscular Volume 82.3 fL (80.0-100.0); Monocytes % (auto) 2.9 % (0.0-12.0); Neutrophils # (auto) 6.4 10 ^3/uL (1.6-8.6); Red Blood Cells 2.83 10^6/uL (4.5-5.90); Red Cell Distribution Width 15.8 % (11.8-14.3); White Blood Cell 7.4 10^3/uL (4.4-10.8)
[2021-02-16 05:22] LABS: Potassium 3.7 mmol/L (3.5-5.1)
[2021-02-16 05:31] LABS: Albumin 1.8 g/dL (3.4-5.0); BUN/Creatinine Ratio 28.6; Bilirubin, Total 0.2 mg/dL (0.2-1.0); Calcium 7.3 mg/dL (8.5-10.1)
[2021-02-16] MEDS: CLINDAMYCIN 300MG IV 50 ML IV SCH ×2 (06:11→14:12)
[2021-02-16] MEDS ORDERED: GLUCAGON HYDROCHLORIDE (RDNA) 1 MG VIAL IV ONE (09:00)
[2021-02-16] MEDS: cefTRIAXone 1GM/50ML D5W 50 ML IV SCH (09:15)
[2021-02-16] MEDS ORDERED: ISOSORBIDE MONONITRATE ER 60 MG TAB PO SCH (10:00)
[2021-02-16] MEDS: AZITHROMYCIN 500MG/ 250ML 250 ML IV SCH (10:26)
[2021-02-16] MEDS: PANTOPRAZOLE 40 MG/10 ML VIAL INJ IV SCH (10:26)
[2021-02-16] MEDS: ENOXAPARIN SOD 30 MG/0.3 ML SYRINGE SC SCH ×2 (10:26→21:58)
[2021-02-16] MEDS: INSULIN LANTUS (GLARGINE) 1 /0.01ml (100units/ml) SC SCH (10:27)
[2021-02-16] MEDS: NITROGLYCERIN 50MG/250ML 250 ML IV SCH (10:38)
[2021-02-16] MEDS ORDERED: FUROSEMIDE 100 MG/10ML VIAL IV ONE (12:15)
[2021-02-16 12:27] LABS: Amphetamine Screen, Urine NEGATIVE (NEGATIVE); Barbiturate Scree,Urine NEGATIVE (NEGATIVE); Benzodiazephine Screen, Urine POSITIVE (NEGATIVE); Cannabinoid Screen, Urine NEGATIVE (NEGATIVE); Cocaine Screen, Urine NEGATIVE (NEGATIVE); Opiate Scree,Urine NEGATIVE (NEGATIVE); Phencyclidine Screen, Urine NEGATIVE (NEGATIVE)
[2021-02-16] MEDS: NOREPINEPHRINE 8 MG/250ML KIT 250 ML IV SCH (15:15)
[2021-02-16] MEDS ORDERED: REMDESIVIR PER PHARMACY 0 ML IV SCH (19:15)
[2021-02-16] MEDS: LORazepam 2MG/ML-1ML VIAL IV PRN (21:41)
[2021-02-16] MEDS ORDERED: REMDESIVIR 200 MG in NS 210ml LOADING DOSE ADULT IV ONE (21:45)
[2021-02-16] MEDS: fentaNYL Drip 2500mCg/250mlNS 250 ML IV SCH (22:15)
[2021-02-17] VITALS (11 sets, daily range): BP systolic 107–180; BP diastolic 57–91
[2021-02-17] MEDS: ACCU-CHEK COMFORT CURVE STRIP VI SCH ×6 (00:20→20:34)
[2021-02-17] MEDS: FREE WATER GT SCH ×13 (00:20→22:00)
[2021-02-17] MEDS: CLINDAMYCIN 300MG IV 50 ML IV SCH ×4 (00:20→22:20)
[2021-02-17] MEDS: InsuLIN REG 1unit/0.01ml Soln (100units/ml) SC SCH ×6 (04:00→20:41)
[2021-02-17 05:28] LABS: Basophils # (auto) 0 10 ^3/uL (0-0.2); Basophils % (auto) 0.4 % (0.0-2.0); Eosinophils # (auto) 0 10 ^3/uL (0-0.8); Hematocrit 25.2 % (41.0-53.0); Hemoglobin 8.5 g/dL (13.5-17.5); Lymphocytes # (auto) 0.7 10 ^3/uL (0.4-5.4); Lymphocytes % (auto) 18.6 % (10.0-50.0); Mean Corpuscular Hemoglobin 27.7 pg (28.0-32.0); Mean Corpuscular Hgb Conc. 33.7 g/dL (32.0-36.0); Monocytes # (auto) 0.2 10 ^3/uL (0-1.3); Monocytes % (auto) 5.4 % (0.0-12.0); Neutrophils # (auto) 2.9 10 ^3/uL (1.6-8.6); Neutrophils % (auto) 74.6 % (37.0-80.0); Nucleated Red Blood Cells % 0.1 %; Red Blood Cells 3.07 10^6/uL (4.5-5.90); Red Cell Distribution Width 15.7 % (11.8-14.3); White Blood Cell 3.8 10^3/uL (4.4-10.8)
[2021-02-17 05:55] LABS: Calcium 7.8 mg/dL (8.5-10.1); Potassium 3.6 mmol/L (3.5-5.1)
[2021-02-17 05:57] LABS: % Iron Saturation 33.1 % (20-55)
[2021-02-17 06:15] LABS: BUN/Creatinine Ratio 29.1; Bilirubin, Total 0.3 mg/dL (0.2-1.0); CRP High Sensitivity 1.6 mg/dL (< 0.3); Total Protein 6.5 g/dL (6.4-8.2)
[2021-02-17] MEDS: cefTRIAXone 1GM/50ML D5W 50 ML IV SCH (09:24)
[2021-02-17] MEDS: PANTOPRAZOLE 40 MG/10 ML VIAL INJ IV SCH (09:24)
[2021-02-17] MEDS: ENOXAPARIN SOD 30 MG/0.3 ML SYRINGE SC SCH ×2 (09:24→22:27)
[2021-02-17] MEDS: NITROGLYCERIN 50MG/250ML 250 ML IV SCH (10:15)
[2021-02-17] MEDS: AZITHROMYCIN 500MG/ 250ML 250 ML IV SCH (10:19)
[2021-02-17] MEDS: INSULIN LANTUS (GLARGINE) 1 /0.01ml (100units/ml) SC SCH (10:41)
[2021-02-17 10:46] LABS: Folate (Folic Acid) 5.47 ng/mL (5.38-24)
[2021-02-17] MEDS ORDERED: FOLIC ACID 1 MG in D5W 5% 50 ML INJ ONE (12:45)
[2021-02-17] MEDS: REMDESIVIR 100mg 100 MG in SODIUM CHL 0.9% 230 ML IV SCH (15:11)
[2021-02-17] MEDS ORDERED: LORazepam 2MG/ML-1ML VIAL IV PRN (19:15)
[2021-02-18] MEDS: fentaNYL Drip 2500mCg/250mlNS 250 ML IV SCH (00:41)
[2021-02-18] MEDS: ACCU-CHEK COMFORT CURVE STRIP VI SCH ×6 (00:46→20:01)
[2021-02-18] MEDS: InsuLIN REG 1unit/0.01ml Soln (100units/ml) SC SCH ×6 (00:49→20:21)
[2021-02-18] MEDS: FREE WATER GT SCH ×12 (02:00→22:00)
[2021-02-18] MEDS: CLINDAMYCIN 300MG IV 50 ML IV SCH ×3 (06:24→22:29)
[2021-02-18 08:04] LABS: Albumin 2.1 g/dL (3.4-5.0); Calcium 7.9 mg/dL (8.5-10.1); Potassium 3.6 mmol/L (3.5-5.1)
[2021-02-18 08:07] LABS: BUN/Creatinine Ratio 24.8; Bilirubin, Total 0.3 mg/dL (0.2-1.0); Total Protein 6.9 g/dL (6.4-8.2)
[2021-02-18] MEDS: cefTRIAXone 1GM/50ML D5W 50 ML IV SCH (09:00)
[2021-02-18] MEDS: PANTOPRAZOLE 40 MG/10 ML VIAL INJ IV SCH (10:16)
[2021-02-18] MEDS: INSULIN LANTUS (GLARGINE) 1 /0.01ml (100units/ml) SC SCH (10:16)
[2021-02-18] MEDS: AZITHROMYCIN 500MG/ 250ML 250 ML IV SCH (10:16)
[2021-02-18] MEDS: ENOXAPARIN SOD 30 MG/0.3 ML SYRINGE SC SCH ×2 (10:16→22:29)
[2021-02-18] MEDS ORDERED: HYDROcodone-ACET 10/325MG TAB PO PRN (10:45)
[2021-02-18] MEDS: amLODIPine BESYLATE 5 MG TAB PO SCH (12:27)
[2021-02-18] MEDS: FOLIC ACID 1 MG in D5W 5% 50 ML INJ SCH (12:27)
[2021-02-18] MEDS: REMDESIVIR 100mg 100 MG in SODIUM CHL 0.9% 230 ML IV SCH (15:11)
[2021-02-18] MEDS: hydrALAZINE HCL 20 MG/ML VL IV PRN (16:18)
[2021-02-18 21:33] VITALS: BP 160/77
[2021-02-18] MEDS ORDERED: cloNIDine HCL 0.1 MG TAB PO PRN (21:45)
[2021-02-18 21:49] VITALS: BP 160/77
[2021-02-18] MEDS: hydrALAZINE HCL 25 MG TAB PO SCH (22:29)
[2021-02-19] MEDS: ACCU-CHEK COMFORT CURVE STRIP VI SCH ×6 (01:23→19:41)
[2021-02-19] MEDS: FREE WATER GT SCH ×11 (02:00→15:55)
[2021-02-19 05:31] VITALS: BP 162/89
[2021-02-19] MEDS: InsuLIN REG 1unit/0.01ml Soln (100units/ml) SC SCH ×6 (05:31→19:42)
[2021-02-19] MEDS: CLINDAMYCIN 300MG IV 50 ML IV SCH ×3 (05:59→21:41)
[2021-02-19 06:06] LABS: Albumin 1.8 g/dL (3.4-5.0); Calcium 7.8 mg/dL (8.5-10.1); Potassium 3.7 mmol/L (3.5-5.1)
[2021-02-19 06:09] LABS: BUN/Creatinine Ratio 17.6; Bilirubin, Total 0.2 mg/dL (0.2-1.0); Total Protein 6.2 g/dL (6.4-8.2)
[2021-02-19 09:00] VITALS: BP 145/85
[2021-02-19] MEDS: cefTRIAXone 1GM/50ML D5W 50 ML IV SCH (09:33)
[2021-02-19] MEDS: INSULIN LANTUS (GLARGINE) 1 /0.01ml (100units/ml) SC SCH (10:00)
[2021-02-19] MEDS: PANTOPRAZOLE 40 MG/10 ML VIAL INJ IV SCH (10:28)
[2021-02-19] MEDS: ENOXAPARIN SOD 30 MG/0.3 ML SYRINGE SC SCH ×2 (10:29→21:41)
[2021-02-19] MEDS: FOLIC ACID 1 MG in D5W 5% 50 ML INJ SCH (11:32)
[2021-02-19] MEDS: amLODIPine BESYLATE 5 MG TAB PO SCH (11:54)
[2021-02-19] MEDS: hydrALAZINE HCL 25 MG TAB PO SCH ×2 (11:54→21:41)
[2021-02-19 13:00] VITALS: BP 162/91
[2021-02-19] MEDS: REMDESIVIR 100mg 100 MG in SODIUM CHL 0.9% 230 ML IV SCH (15:30)
[2021-02-19 17:00] VITALS: BP 150/85
[2021-02-19 21:53] VITALS: BP 154/91
[2021-02-20] MEDS: ACCU-CHEK COMFORT CURVE STRIP VI SCH ×7 (04:17→23:53)
[2021-02-20] MEDS: InsuLIN REG 1unit/0.01ml Soln (100units/ml) SC SCH ×7 (04:17→23:55)
[2021-02-20 05:00] VITALS: BP 152/83
[2021-02-20] MEDS: CLINDAMYCIN 300MG IV 50 ML IV SCH ×3 (05:26→22:00)
[2021-02-20 06:46] LABS: Albumin 1.8 g/dL (3.4-5.0); BUN/Creatinine Ratio 14.7
[2021-02-20 06:49] LABS: Bilirubin, Total 0.2 mg/dL (0.2-1.0); Total Protein 6.3 g/dL (6.4-8.2)
[2021-02-20] MEDS: cefTRIAXone 1GM/50ML D5W 50 ML IV SCH (08:30)
[2021-02-20 09:00] VITALS: BP 145/84
[2021-02-20] MEDS: PANTOPRAZOLE 40 MG/10 ML VIAL INJ IV SCH (09:00)
[2021-02-20] MEDS: amLODIPine BESYLATE 5 MG TAB PO SCH (09:01)
[2021-02-20] MEDS: ENOXAPARIN SOD 30 MG/0.3 ML SYRINGE SC SCH ×2 (09:01→22:13)
[2021-02-20] MEDS: INSULIN LANTUS (GLARGINE) 1 /0.01ml (100units/ml) SC SCH (09:02)
[2021-02-20] MEDS: hydrALAZINE HCL 25 MG TAB PO SCH ×2 (09:02→22:14)
[2021-02-20] MEDS: FOLIC ACID 1 MG in D5W 5% 50 ML INJ SCH (09:05)
[2021-02-20] MEDS: hydrALAZINE HCL 20 MG/ML VL IV PRN (12:03)
[2021-02-20 13:00] VITALS: BP 131/76
[2021-02-20] MEDS: REMDESIVIR 100mg 100 MG in SODIUM CHL 0.9% 230 ML IV SCH (15:52)
[2021-02-20 17:00] VITALS: BP 160/94
[2021-02-20 22:00] VITALS: BP 141/86
[2021-02-20] MEDS: DAKINS HALF STR 0.25% (NaHypochlorite) 473 ML TOPICAL SOL TOP SCH (22:59)
[2021-02-21] MEDS: ACCU-CHEK COMFORT CURVE STRIP VI SCH ×5 (04:19→21:39)
[2021-02-21] MEDS: InsuLIN REG 1unit/0.01ml Soln (100units/ml) SC SCH ×5 (04:22→21:27)
[2021-02-21 05:00] VITALS: BP 157/94
[2021-02-21] MEDS: CLINDAMYCIN 300MG IV 50 ML IV SCH ×3 (05:02→21:39)
[2021-02-21] MEDS: hydrALAZINE HCL 25 MG TAB PO SCH ×2 (08:36→21:38)
[2021-02-21] MEDS: PANTOPRAZOLE 40 MG/10 ML VIAL INJ IV SCH (08:36)
[2021-02-21] MEDS: amLODIPine BESYLATE 5 MG TAB PO SCH (08:37)
[2021-02-21] MEDS: ENOXAPARIN SOD 30 MG/0.3 ML SYRINGE SC SCH ×3 (08:37→21:39)
[2021-02-21] MEDS: INSULIN LANTUS (GLARGINE) 1 /0.01ml (100units/ml) SC SCH (08:39)
[2021-02-21] MEDS: DAKINS HALF STR 0.25% (NaHypochlorite) 473 ML TOPICAL SOL TOP SCH ×2 (08:40→21:39)
[2021-02-21 09:00] VITALS: BP 165/95
[2021-02-21] MEDS: FOLIC ACID 1 MG in D5W 5% 50 ML INJ SCH (10:08)
[2021-02-21] MEDS: cefTRIAXone 1GM/50ML D5W 50 ML IV SCH (10:35)
[2021-02-21] MEDS ORDERED: DEXTROSE (50%) 50ML SYRG IV PRN (12:30)
[2021-02-21 13:00] VITALS: BP 156/82
[2021-02-21 17:00] VITALS: BP 157/85
[2021-02-21 22:00] VITALS: BP 146/90
[2021-02-22 05:00] VITALS: BP 155/88
[2021-02-22] MEDS: InsuLIN REG 1unit/0.01ml Soln (100units/ml) SC SCH ×4 (06:17→22:43)
[2021-02-22] MEDS: CLINDAMYCIN 300MG IV 50 ML IV SCH ×3 (06:17→22:25)
[2021-02-22] MEDS: ACCU-CHEK COMFORT CURVE STRIP VI SCH ×4 (06:17→22:25)
[2021-02-22 07:09] LABS: Potassium 4.2 mmol/L (3.5-5.1)
[2021-02-22 07:17] LABS: Calcium 8.1 mg/dL (8.5-10.1)
[2021-02-22 09:00] VITALS: BP 146/96
[2021-02-22] MEDS: cefTRIAXone 1GM/50ML D5W 50 ML IV SCH (09:13)
[2021-02-22] MEDS: hydrALAZINE HCL 25 MG TAB PO SCH ×2 (09:14→22:25)
[2021-02-22] MEDS: PANTOPRAZOLE 40 MG/10 ML VIAL INJ IV SCH (09:14)
[2021-02-22] MEDS: DAKINS HALF STR 0.25% (NaHypochlorite) 473 ML TOPICAL SOL TOP SCH ×2 (09:15→22:00)
[2021-02-22] MEDS: amLODIPine BESYLATE 5 MG TAB PO SCH (09:15)
[2021-02-22] MEDS: ENOXAPARIN SOD 30 MG/0.3 ML SYRINGE SC SCH ×2 (09:23→22:00)
[2021-02-22] MEDS: INSULIN LANTUS (GLARGINE) 1 /0.01ml (100units/ml) SC SCH (09:31)
[2021-02-22] MEDS: FOLIC ACID 1 MG in D5W 5% 50 ML INJ SCH (10:38)
[2021-02-22] MEDS ORDERED: LISINOPRIL 10 MG TAB PO ONE (11:00)
[2021-02-22 13:00] VITALS: BP 170/93
[2021-02-22 17:00] VITALS: BP 145/88
[2021-02-22 20:00] VITALS: BP 156/87
[2021-02-22 22:00] VITALS: BP 156/87
[2021-02-23 05:22] VITALS: BP 177/91
[2021-02-23 05:44] LABS: Hematocrit 27.1 % (41.0-53.0); Hemoglobin 9.3 g/dL (13.5-17.5); Mean Corpuscular Hemoglobin 27.5 pg (28.0-32.0); Mean Corpuscular Hgb Conc. 34.2 g/dL (32.0-36.0); Mean Corpuscular Volume 80.3 fL (80.0-100.0); Red Blood Cells 3.38 10^6/uL (4.5-5.90); Red Cell Distribution Width 14.9 % (11.8-14.3); White Blood Cell 5.2 10^3/uL (4.4-10.8)
[2021-02-23 06:05] LABS: Potassium 4.6 mmol/L (3.5-5.1)
[2021-02-23 06:09] LABS: Basophils % (manual) 0 (0.0-2.0); Blast Cells 0; Metamyelocytes % 0; Promyelocytes % 0; Reactive Lymphocytes 0
[2021-02-23 06:13] LABS: BUN/Creatinine Ratio 14.7; Bilirubin, Total 0.2 mg/dL (0.2-1.0); Calcium 8.1 mg/dL (8.5-10.1); Magnesium 1.8 mg/dL (1.6-2.6); Total Protein 6.7 g/dL (6.4-8.2)
[2021-02-23] MEDS: CLINDAMYCIN 300MG IV 50 ML IV SCH ×2 (06:51→14:00)
[2021-02-23] MEDS: ACCU-CHEK COMFORT CURVE STRIP VI SCH ×2 (06:51→11:21)
[2021-02-23] MEDS: InsuLIN REG 1unit/0.01ml Soln (100units/ml) SC SCH ×2 (06:54→11:24)
[2021-02-23 07:15] LABS: Band Neutrophils % (manual) 5; Eosinophils % (manual) 1 (0-7); Lymphocytes % (manual) 26 (10.0-50.0); Monocytes % (manual) 10 (0-12); Myelocytes % 1
[2021-02-23 09:00] VITALS: BP 143/92
[2021-02-23] MEDS ORDERED: LISINOPRIL 10 MG TAB PO SCH ×2 (10:00)
[2021-02-23] MEDS: ENOXAPARIN SOD 30 MG/0.3 ML SYRINGE SC SCH ×2 (10:00→10:18)
[2021-02-23] MEDS: PANTOPRAZOLE 40 MG/10 ML VIAL INJ IV SCH (10:17)
[2021-02-23] MEDS: hydrALAZINE HCL 25 MG TAB PO SCH (10:17)
[2021-02-23] MEDS: cefTRIAXone 1GM/50ML D5W 50 ML IV SCH (10:17)
[2021-02-23] MEDS: amLODIPine BESYLATE 5 MG TAB PO SCH (10:18)
[2021-02-23] MEDS: DAKINS HALF STR 0.25% (NaHypochlorite) 473 ML TOPICAL SOL TOP SCH (10:18)
[2021-02-23] MEDS: FOLIC ACID 1 MG in D5W 5% 50 ML INJ SCH (11:22)
[2021-02-23] MEDS: INSULIN LANTUS (GLARGINE) 1 /0.01ml (100units/ml) SC SCH (11:24)
[2021-02-23 12:36] VITALS: BP 143/92
[2021-02-23 13:00] VITALS: BP 150/89
== END 2021-02-23 13:50 | disposition home or self-care (01) | DRG 720 ==
LOC: ER 11:56 → EDBD 11:56 → OVERFLOW 18:34 → TELE-EAST 02-18 21:34
PROVIDERS: ADMIT Family Medicine; ATTEND Internal Medicine
PROC: 5A1955Z Respiratory Ventilation, Greater than 96 Consecutive Hours (ICD-10-PCS; principal; 2021-02-13)
PROC: 4A143B0 Monitoring of Venous Pressure, Central, Percutaneous Approach (ICD-10-PCS; 2021-02-13)
PROC: 06HM33Z Insertion of Infusion Device into Right Femoral Vein, Percutaneous Approach (ICD-10-PCS; 2021-02-13)
PROC: 0BH17EZ Insertion of Endotracheal Airway into Trachea, Via Natural or Artificial Opening (ICD-10-PCS; 2021-02-13)
PROC: XW033E5 Introduction of Remdesivir Anti-infective into Peripheral Vein, Percutaneous Approach, New Technology Group 5 (ICD-10-PCS; 2021-02-16)
DX: A41.89 Other specified sepsis (principal); J96.01 Acute respiratory failure with hypoxia; J12.82 Pneumonia due to coronavirus disease 2019; N17.0 Acute kidney failure with tubular necrosis; U07.1 COVID-19; R65.21 Severe sepsis with septic shock; D63.8 Anemia in other chronic diseases classified elsewhere; I21.A1 Myocardial infarction type 2; E11.10 Type 2 diabetes mellitus with ketoacidosis without coma; N18.32 Chronic kidney disease, stage 3b; E87.0 Hyperosmolality and hypernatremia; E87.6 Hypokalemia; E11.22 Type 2 diabetes mellitus with diabetic chronic kidney disease; E11.51 Type 2 diabetes mellitus with diabetic peripheral angiopathy without gangrene; E11.610 Type 2 diabetes mellitus with diabetic neuropathic arthropathy; E78.5 Hyperlipidemia, unspecified; F17.210 Nicotine dependence, cigarettes, uncomplicated; L03.116 Cellulitis of left lower limb; L03.115 Cellulitis of right lower limb; D68.59 Other primary thrombophilia; I12.9 Hypertensive chronic kidney disease with stage 1 through stage 4 chronic kidney disease, or unspecified chronic kidney disease; K21.9 Gastro-esophageal reflux disease without esophagitis; L97.509 Non-pressure chronic ulcer of other part of unspecified foot with unspecified severity; Z75.1 Person awaiting admission to adequate facility elsewhere; Z79.4 Long term (current) use of insulin; Z79.899 Other long term (current) drug therapy; Z80.0 Family history of malignant neoplasm of digestive organs; Z83.3 Family history of diabetes mellitus; Z85.07 Personal history of malignant neoplasm of pancreas; Z86.73 Personal history of transient ischemic attack (TIA), and cerebral infarction without residual deficits
CPT/HCPCS: 31500; 36415; 36556; 36600; 51702; 70450; 71045; 71046; 73060; 73700; 76775; 80048; 80053; 80307; 81001; 82010; 82306; 82607; 82728; 82746; 82805; 82962; 83036; 83540; 83550; 83605; 83615; 83735; 83880; 84100; 84295; 84443; 84484; 85007; 85025; 85027; 85045; 85379; 85610; 86141; 87040; 87070; 87077; 87081; 87086; 87186; 87205; 87426; 93005; 93970; 94003; 96365; 96366; 96368; 96372; 96375; 96376; 97116; 97163; 97530; C9113; G0378; J0330; J0696; J1100; J1815; J2250; J2543; J3490; J7060

== ENCOUNTER 2021-07-11 20:02 | Inpatient (IN) | payer MEDICAID ==
[~2021-07-11] VITALS: Ht 188 cm; Wt 81.0 kg
[2021-07-11] MEDS ORDERED: SODIUM CHLORIDE 0.9% 3,000 ML IV ONE (20:45)
[2021-07-11 21:19] LABS: Basophils # (auto) 0 10 ^3/uL (0-0.2); Eosinophils # (auto) 0 10 ^3/uL (0-0.8); Hemoglobin 9.1 g/dL (13.5-17.5); Mean Corpuscular Hemoglobin 28.5 pg (28.0-32.0); Monocytes # (auto) 0.9 10 ^3/uL (0-1.3)
[2021-07-11 21:21] LABS: Basophils % (auto) 0.2 % (0.0-2.0); Hematocrit 30.7 % (41.0-53.0); Lymphocytes # (auto) 0.6 10 ^3/uL (0.4-5.4); Lymphocytes % (auto) 3.5 % (10.0-50.0); Mean Corpuscular Hgb Conc. 29.6 g/dL (32.0-36.0); Monocytes % (auto) 5.1 % (0.0-12.0); Neutrophils # (auto) 16.6 10 ^3/uL (1.6-8.6); Neutrophils % (auto) 91.2 % (37.0-80.0); Red Cell Distribution Width 15.7 % (11.8-14.3); White Blood Cell 18.2 10^3/uL (4.4-10.8)
[2021-07-11 21:24] LABS: Anion Gap 38 (5-15); Calcium 7.6 mg/dL (8.5-10.1); Chloride 89 mmol/L (98-107); Sodium 133 mmol/L (136-145)
[2021-07-11 21:25] LABS: Lactic Acid w/Reflex 3.7 mmol/L (0.4-2.0)
[2021-07-11 21:32] LABS: Alanine Aminotransferase 54 U/L (16-61); Alkaline Phosphatase 115 U/L (45-117); Aspartate Aminotransferase 50 U/L (15-37); BUN/Creatinine Ratio 18.7; Bilirubin, Total 0.5 mg/dL (0.2-1.0); Blood Alcohol < 3.0 mg/dL (0-5); GFR African American 12 mL/min; GFR Non-African American 10 mL/min; Total Protein 6.1 g/dL (6.4-8.2)
[2021-07-11 21:51] LABS: Blood Urea Nitrogen 118 mg/dL (7-18); Carbon Dioxide 6 mmol/L (21-32); Glucose 999 mg/dL (74-106); Potassium 7.1 mmol/L (3.5-5.1)
[2021-07-11] MEDS ORDERED: InsuLIN R (HUMAN) 100 UNITS in SODIUM CHL 0.9% 99 ML IV SCH (22:15)
[2021-07-11] MEDS ORDERED: SODIUM CHLORIDE 0.9% 4,000 ML IV ONE (22:15)
[2021-07-11] MEDS ORDERED: ALBUTEROL SULF 2.5 MG/0.5ML(0.5%) NEB SOLN NEB ONE (22:15)
[2021-07-11] MEDS ORDERED: ENOXAPARIN SOD 100 MG/1 ML SYRINGE SC ONE ×2 (22:15→23:30)
[2021-07-11] MEDS ORDERED: DEXTROSE (50%) 50ML SYRG IV PRN (22:15)
[2021-07-11] MEDS ORDERED: SODIUM BICARBONATE 8.4% INJ 50ML SYRINGE IV ONE (22:15)
[2021-07-11] MEDS ORDERED: CALCIUM GLUC 1,000mg/50ml-NS 50 ML IV ONE (22:15)
[2021-07-11] MEDS ORDERED: InsuLIN REG 1unit/0.01ml Soln (100units/ml) IV ONE (22:15)
[2021-07-11 22:42] LABS: Alcohol, Urine < 3.0 mg/dL (0-10); Amphetamine Screen, Urine POSITIVE (NEGATIVE); Barbiturate Scree,Urine NEGATIVE (NEGATIVE); Benzodiazephine Screen, Urine NEGATIVE (NEGATIVE); Cannabinoid Screen, Urine NEGATIVE (NEGATIVE); Cocaine Screen, Urine NEGATIVE (NEGATIVE); Opiate Scree,Urine NEGATIVE (NEGATIVE); Phencyclidine Screen, Urine NEGATIVE (NEGATIVE)
[2021-07-12] MEDS ORDERED: InsuLIN REG 1unit/0.01ml Soln (100units/ml) ONE ×2 (00:07→06:30)
[2021-07-12] MEDS: ACCU-CHEK COMFORT CURVE STRIP VI SCH ×17 (00:16→22:36)
[2021-07-12] MEDS ORDERED: ONDANSETRON HCL 4 MG/2 ML VIAL IV PRN (01:15)
[2021-07-12] MEDS ORDERED: SODIUM CHLORIDE 0.9% 1,000 ML IV SCH (01:15)
[2021-07-12] MEDS ORDERED: DOCUSATE SOD 100 MG CAP PO PRN (01:15)
[2021-07-12] MEDS ORDERED: HYDROcodone-ACET 5/325MG TAB PO PRN (01:15)
[2021-07-12] MEDS ORDERED: MORPHINE SULFATE 4 MG/ML SYR/VIAL IV PRN (01:15)
[2021-07-12] MEDS ORDERED: LABETALOL HCL 5 MG/ML 4ML SYRINGE IV PRN (01:15)
[2021-07-12] MEDS ORDERED: ACETAMINOPHEN 325 MG TAB PO PRN (01:15)
[2021-07-12] MEDS ORDERED: cefTRIAXone 1GM/50ML D5W 50 ML IV ONE (01:15)
[2021-07-12] MEDS ORDERED: InsuLIN R (HUMAN) 100 UNITS in SODIUM CHL 0.9% 99 ML IV SCH ×2 (01:30→03:15)
[2021-07-12] MEDS ORDERED: NITROGLYCERIN 0.4 MG SL TAB SL PRN (01:45)
[2021-07-12] MEDS ORDERED: MORPHINE SULFATE INJECTION 2 MG/ML SYRG IV PRN (01:45)
[2021-07-12] MEDS ORDERED: LORazepam 2MG/ML-1ML VIAL IV PRN (01:45)
[2021-07-12] MEDS ORDERED: LORazepam 2MG/ML-1ML VIAL IM ONE (02:15)
[2021-07-12] MEDS ORDERED: DEXTROSE (50%) 50ML SYRG IV PRN ×4 (03:15→21:15)
[2021-07-12 03:50] LABS: Albumin 2.7 g/dL (3.4-5.0); Calcium 7.2 mg/dL (8.5-10.1)
[2021-07-12 03:52] LABS: Bilirubin, Total 0.4 mg/dL (0.2-1.0); Total Protein 5.9 g/dL (6.4-8.2)
[2021-07-12 04:19] LABS: Potassium 5.2 mmol/L (3.5-5.1)
[2021-07-12 04:25] LABS: BUN/Creatinine Ratio 19.5
[2021-07-12] MEDS: InsuLIN R (HUMAN) 100 UNITS in SODIUM CHL 0.9% 99 ML IV SCH ×3 (05:31→07:05)
[2021-07-12] MEDS ORDERED: InsuLIN REG 1unit/0.01ml Soln (100units/ml) SC ONE (07:00)
[2021-07-12] MEDS: HEPARIN SODIUM (PORCINE) 5000 UNITS/ML 1ML VIAL SC SCH ×3 (07:01→23:52)
[2021-07-12] MEDS: INSULIN LANTUS (GLARGINE) 1 /0.01ml (100units/ml) SC SCH ×2 (07:32→22:00)
[2021-07-12] MEDS: FAMOTIDINE (10MG/ML) 2ML VL IV SCH (09:43)
[2021-07-12] MEDS: MULTIPLE VITAMIN TAB PO SCH (09:45)
[2021-07-12] MEDS: ASPirin 81 mg TAB PO SCH (09:45)
[2021-07-12] MEDS: ZINC SULFATE 220mg CAP or TAB PO SCH (09:45)
[2021-07-12] MEDS: ASCORBIC ACID 500 MG TAB PO SCH ×2 (09:45→23:53)
[2021-07-12 09:47] LABS: Sodium Urine 16 mmol/L (40-220)
[2021-07-12 09:48] LABS: Creatinine, Urine 99 mg/dL (30.0-125.0)
[2021-07-12 10:10] LABS: Protein, Urine 849.4 mg/dL (0.0-11.9)
[2021-07-12 11:00] VITALS: BP 117/60
[2021-07-12] MEDS ORDERED: diphenhdrAMINE HCL 50 MG/1 ML VL IV ONE (11:15)
[2021-07-12] MEDS ORDERED: SUCCINYLCHOLINE CHLORIDE 20 MG/ML 10ML VIAL IV ONE (11:15)
[2021-07-12] MEDS ORDERED: ETOMIDATE (2MG/ML) 20ML VIAL IV ONE ×2 (11:15→11:20)
[2021-07-12] MEDS ORDERED: diphenhdrAMINE HCL 50 MG/1 ML VL ONE (11:20)
[2021-07-12] MEDS ORDERED: MIDAZOLAM HCL 5 MG/ML-1ML VIAL ONE (11:20)
[2021-07-12] MEDS ORDERED: MIDAZOLAM DRIP 50 mg/50mL 50 ML IV ONE (11:20)
[2021-07-12] MEDS: MIDAZOLAM DRIP 50 mg/50mL 50 ML IV SCH ×2 (11:33→23:30)
[2021-07-12] MEDS: fentaNYL Drip 2500mCg/250mlNS 250 ML IV SCH (11:54)
[2021-07-12] MEDS: SODIUM CHLORIDE 0.9% 1,000 ML IV SCH ×2 (12:52→19:25)
[2021-07-12 13:32] VITALS: BP 116/66
[2021-07-12 17:16] LABS: Albumin 2.6 g/dL (3.4-5.0); Calcium 6.9 mg/dL (8.5-10.1); Potassium 3.4 mmol/L (3.5-5.1)
[2021-07-12 17:20] LABS: BUN/Creatinine Ratio 17.9; Bilirubin, Total 0.2 mg/dL (0.2-1.0); Total Protein 5.3 g/dL (6.4-8.2)
[2021-07-12 18:20] VITALS: BP 141/73
[2021-07-12] MEDS ORDERED: SODIUM CHLORIDE 0.9% 1,000 ML IV ONE (21:15)
[2021-07-12] MEDS ORDERED: cefTRIAXone 1GM/50ML D5W 50 ML IV SCH (22:00)
[2021-07-12] MEDS: InsuLIN REG 1unit/0.01ml Soln (100units/ml) SC SCH (22:00)
[2021-07-12] MEDS ORDERED: ENOXAPARIN SOD 100 MG/1 ML SYRINGE SC SCH (22:00)
[2021-07-12 22:15] VITALS: BP 131/75
[2021-07-12] MEDS ORDERED: DEXTROSE 50% SYRINGE 50 ML IV ONE (22:27)
[2021-07-12] MEDS: FREE WATER GT SCH (22:33)
[2021-07-12] MEDS: D5W/SOD CHL 0.45% 1,000 ML IV SCH (23:11)
[2021-07-12 23:15] LABS: Albumin 2.5 g/dL (3.4-5.0); BUN/Creatinine Ratio 18.3; Potassium 3.8 mmol/L (3.5-5.1)
[2021-07-12 23:19] LABS: Bilirubin, Total 0.3 mg/dL (0.2-1.0); Total Protein 5.5 g/dL (6.4-8.2)
[2021-07-13] MEDS ORDERED: InsuLIN REG 1unit/0.01ml Soln (100units/ml) SC SCH ×2
[2021-07-13] MEDS ORDERED: ACCU-CHEK COMFORT CURVE STRIP VI SCH ×2
[2021-07-13] MEDS: FREE WATER GT SCH ×12 (01:16→21:56)
[2021-07-13] MEDS: InsuLIN REG 1unit/0.01ml Soln (100units/ml) SC SCH ×6 (02:00→22:20)
[2021-07-13] MEDS: SODIUM CHLORIDE 0.9% 1,000 ML IV SCH ×2 (02:05→08:45)
[2021-07-13 02:14] VITALS: BP 125/72
[2021-07-13] MEDS: ACCU-CHEK COMFORT CURVE STRIP VI SCH ×6 (02:25→21:57)
[2021-07-13 05:28] LABS: Basophils # (auto) 0 10 ^3/uL (0-0.2); Basophils % (auto) 0.5 % (0.0-2.0); Eosinophils # (auto) 0 10 ^3/uL (0-0.8); Eosinophils % (auto) 0.1 % (0.0-7.0); Hematocrit 28.9 % (41.0-53.0); Hemoglobin 9.9 g/dL (13.5-17.5); Lymphocytes # (auto) 0.7 10 ^3/uL (0.4-5.4); Lymphocytes % (auto) 8.2 % (10.0-50.0); Mean Corpuscular Hgb Conc. 34.2 g/dL (32.0-36.0); Mean Corpuscular Volume 84.9 fL (80.0-100.0); Monocytes # (auto) 0.3 10 ^3/uL (0-1.3); Monocytes % (auto) 3.5 % (0.0-12.0); Neutrophils % (auto) 87.7 % (37.0-80.0); Red Cell Distribution Width 14.3 % (11.8-14.3)
[2021-07-13 05:45] LABS: Albumin 2.4 g/dL (3.4-5.0); BUN/Creatinine Ratio 19.2; Calcium 7.1 mg/dL (8.5-10.1); Potassium 3.9 mmol/L (3.5-5.1)
[2021-07-13 05:48] LABS: Bilirubin, Total 0.2 mg/dL (0.2-1.0); Total Protein 5.6 g/dL (6.4-8.2)
[2021-07-13] MEDS: HEPARIN SODIUM (PORCINE) 5000 UNITS/ML 1ML VIAL SC SCH ×3 (06:10→22:19)
[2021-07-13] MEDS: MIDAZOLAM DRIP 50 mg/50mL 50 ML IV SCH ×2 (06:28→08:05)
[2021-07-13 06:35] VITALS: BP 157/82
[2021-07-13] MEDS: INSULIN LANTUS (GLARGINE) 1 /0.01ml (100units/ml) SC SCH ×2 (07:05→21:56)
[2021-07-13] MEDS: D5W/SOD CHL 0.45% 1,000 ML IV SCH ×4 (07:05→18:21)
[2021-07-13] MEDS: cefTRIAXone 1GM/50ML D5W 50 ML IV SCH (08:50)
[2021-07-13] MEDS: ASPirin 81 mg TAB PO SCH (08:54)
[2021-07-13] MEDS: ASCORBIC ACID 500 MG TAB PO SCH ×2 (09:03→22:10)
[2021-07-13] MEDS: ZINC SULFATE 220mg CAP or TAB PO SCH (09:03)
[2021-07-13] MEDS: MULTIPLE VITAMIN TAB PO SCH (09:03)
[2021-07-13 10:40] VITALS: BP 184/83
[2021-07-13] MEDS ORDERED: METOPROLOL TARTRATE 1MG/1ML-5ML VIAL IV ONE (10:45)
[2021-07-13] MEDS ORDERED: amLODIPine BESYLATE 5 MG TAB PO ONE (10:45)
[2021-07-13 12:31] LABS: Urine Bacteria FEW /hpf (None Seen); Urine Blood 1+ /uL (Negative); Urine Mucus FEW (None Seen); Urine Specific Gravity 1.015 (1.001-1.035); Urine WBC 11 /hpf (0 - 3)
[2021-07-13] MEDS: fentaNYL Drip 2500mCg/250mlNS 250 ML IV SCH (13:02)
[2021-07-13 13:53] LABS: Hepatitis C Antibody Positive (Negative)
[2021-07-13 14:20] VITALS: BP 151/87
[2021-07-13 18:29] VITALS: BP 106/64
[2021-07-13] MEDS: METOPROLOL TARTRATE 25 MG TAB PO SCH (21:55)
[2021-07-13 22:30] VITALS: BP 106/64
[2021-07-14] MEDS: FREE WATER GT SCH ×11 (00:19→20:00)
[2021-07-14] MEDS: ACCU-CHEK COMFORT CURVE STRIP VI SCH ×5 (01:54→18:11)
[2021-07-14] MEDS: InsuLIN REG 1unit/0.01ml Soln (100units/ml) SC SCH ×6 (01:56→22:00)
[2021-07-14 02:41] VITALS: BP 136/64
[2021-07-14 07:02] VITALS: BP 180/85
[2021-07-14 07:09] LABS: BUN/Creatinine Ratio 22.1; Calcium 7.5 mg/dL (8.5-10.1)
[2021-07-14] MEDS: HEPARIN SODIUM (PORCINE) 5000 UNITS/ML 1ML VIAL SC SCH ×3 (07:42→22:00)
[2021-07-14] MEDS: INSULIN LANTUS (GLARGINE) 1 /0.01ml (100units/ml) SC SCH (07:43)
[2021-07-14] MEDS: cefTRIAXone 1GM/50ML D5W 50 ML IV SCH (09:30)
[2021-07-14] MEDS: ASPirin 81 mg TAB PO SCH (09:47)
[2021-07-14] MEDS: ZINC SULFATE 220mg CAP or TAB PO SCH (09:47)
[2021-07-14] MEDS: FAMOTIDINE (10MG/ML) 2ML VL IV SCH (09:47)
[2021-07-14] MEDS: METOPROLOL TARTRATE 25 MG TAB PO SCH (09:48)
[2021-07-14] MEDS: MULTIPLE VITAMIN TAB PO SCH (09:55)
[2021-07-14] MEDS: amLODIPine BESYLATE 5 MG TAB PO SCH (09:56)
[2021-07-14] MEDS: ASCORBIC ACID 500 MG TAB PO SCH (09:56)
[2021-07-14 10:38] VITALS: BP 183/83
[2021-07-14] MEDS: MIDAZOLAM DRIP 50 mg/50mL 50 ML IV SCH (11:15)
[2021-07-14] MEDS: fentaNYL Drip 2500mCg/250mlNS 250 ML IV SCH (11:30)
[2021-07-14 13:47] VITALS: BP 130/67
[2021-07-14] MEDS: D5W/SOD CHL 0.45% 1,000 ML IV SCH (15:43)
[2021-07-14 18:35] VITALS: BP 183/74
[2021-07-14 22:15] VITALS: BP 145/71
[2021-07-15] VITALS (10 sets, daily range): BP systolic 92–176; BP diastolic 57–89
[2021-07-15] MEDS ORDERED: HEPARIN SODIUM (PORCINE) 5000 UNITS/ML 1ML VIAL ONE (00:05)
[2021-07-15] MEDS: METOPROLOL TARTRATE 25 MG TAB PO SCH ×3 (00:41→22:00)
[2021-07-15] MEDS: D5W/SOD CHL 0.45% 1,000 ML IV SCH ×2 (00:42→07:14)
[2021-07-15] MEDS: ASCORBIC ACID 500 MG TAB PO SCH ×3 (00:43→22:47)
[2021-07-15] MEDS: INSULIN LANTUS (GLARGINE) 1 /0.01ml (100units/ml) SC SCH ×3 (00:44→22:46)
[2021-07-15] MEDS: FREE WATER GT SCH ×13 (00:47→22:47)
[2021-07-15] MEDS: ACCU-CHEK COMFORT CURVE STRIP VI SCH ×7 (00:47→22:46)
[2021-07-15] MEDS: InsuLIN REG 1unit/0.01ml Soln (100units/ml) SC SCH ×6 (02:00→22:45)
[2021-07-15] MEDS: HEPARIN SODIUM (PORCINE) 5000 UNITS/ML 1ML VIAL SC SCH ×3 (07:13→22:45)
[2021-07-15 07:37] LABS: Basophils # (auto) 0 10 ^3/uL (0-0.2); Basophils % (auto) 0.2 % (0.0-2.0); Eosinophils # (auto) 0 10 ^3/uL (0-0.8); Eosinophils % (auto) 0.3 % (0.0-7.0); Hematocrit 28.7 % (41.0-53.0); Hemoglobin 9.7 g/dL (13.5-17.5); Lymphocytes # (auto) 0.6 10 ^3/uL (0.4-5.4); Lymphocytes % (auto) 8.5 % (10.0-50.0); Mean Corpuscular Hemoglobin 28.9 pg (28.0-32.0); Mean Corpuscular Hgb Conc. 33.7 g/dL (32.0-36.0); Mean Corpuscular Volume 85.6 fL (80.0-100.0); Monocytes # (auto) 0.2 10 ^3/uL (0-1.3); Monocytes % (auto) 3.2 % (0.0-12.0); Neutrophils # (auto) 6.6 10 ^3/uL (1.6-8.6); Neutrophils % (auto) 87.8 % (37.0-80.0); Red Blood Cells 3.36 10^6/uL (4.5-5.90); Red Cell Distribution Width 14.7 % (11.8-14.3); White Blood Cell 7.5 10^3/uL (4.4-10.8)
[2021-07-15 08:27] LABS: Albumin 1.9 g/dL (3.4-5.0); BUN/Creatinine Ratio 23.3; Calcium 7.9 mg/dL (8.5-10.1); Magnesium 1.6 mg/dL (1.6-2.6); Potassium 3.4 mmol/L (3.5-5.1)
[2021-07-15 08:30] LABS: Bilirubin, Total 0.4 mg/dL (0.2-1.0); Total Protein 5.4 g/dL (6.4-8.2)
[2021-07-15] MEDS: cefTRIAXone 1GM/50ML D5W 50 ML IV SCH (10:21)
[2021-07-15] MEDS: D5W 5% 1,000 ML IV SCH ×2 (10:55→20:46)
[2021-07-15] MEDS ORDERED: LORazepam 2MG/ML-1ML VIAL IV ONE (11:15)
[2021-07-15] MEDS: amLODIPine BESYLATE 5 MG TAB PO SCH (11:25)
[2021-07-15] MEDS: MULTIPLE VITAMIN TAB PO SCH (11:25)
[2021-07-15] MEDS: ZINC SULFATE 220mg CAP or TAB PO SCH (11:25)
[2021-07-15] MEDS: ASPirin 81 mg TAB PO SCH (11:25)
[2021-07-15] MEDS: fentaNYL Drip 2500mCg/250mlNS 250 ML IV SCH (12:07)
[2021-07-15] MEDS: MIDAZOLAM DRIP 50 mg/50mL 50 ML IV SCH (12:07)
[2021-07-15] MEDS: hydrALAZINE HCL 20 MG/ML VL IV PRN (13:50)
[2021-07-15] MEDS ORDERED: MORPHINE SULFATE INJECTION 2 MG/ML SYRG IV PRN (15:30)
[2021-07-15] MEDS: PROPOFOL 100 ML IV SCH (15:37)
[2021-07-16] MEDS: FREE WATER GT SCH ×11 (00:44→17:52)
[2021-07-16 02:00] VITALS: BP 129/75
[2021-07-16] MEDS: PROPOFOL 100 ML IV SCH (02:39)
[2021-07-16] MEDS: ACCU-CHEK COMFORT CURVE STRIP VI SCH ×6 (03:10→22:18)
[2021-07-16] MEDS: InsuLIN REG 1unit/0.01ml Soln (100units/ml) SC SCH ×6 (03:11→22:00)
[2021-07-16 05:09] LABS: Calcium 7.8 mg/dL (8.5-10.1); Potassium 3.3 mmol/L (3.5-5.1)
[2021-07-16 05:11] LABS: BUN/Creatinine Ratio 21.5
[2021-07-16] MEDS: HEPARIN SODIUM (PORCINE) 5000 UNITS/ML 1ML VIAL SC SCH ×3 (06:20→22:24)
[2021-07-16 06:38] VITALS: BP 98/60
[2021-07-16] MEDS: D5W 5% 1,000 ML IV SCH ×2 (07:30→18:41)
[2021-07-16] MEDS: INSULIN LANTUS (GLARGINE) 1 /0.01ml (100units/ml) SC SCH ×2 (07:49→22:25)
[2021-07-16 08:17] VITALS: BP 155/82
[2021-07-16] MEDS: cefTRIAXone 1GM/50ML D5W 50 ML IV SCH (08:34)
[2021-07-16 09:57] VITALS: BP 111/72
[2021-07-16] MEDS: MIDAZOLAM DRIP 50 mg/50mL 50 ML IV SCH (10:18)
[2021-07-16] MEDS: FAMOTIDINE (10MG/ML) 2ML VL IV SCH (10:30)
[2021-07-16] MEDS: ASPirin 81 mg TAB PO SCH (10:30)
[2021-07-16] MEDS: ASCORBIC ACID 500 MG TAB PO SCH ×2 (10:31→22:19)
[2021-07-16] MEDS: amLODIPine BESYLATE 5 MG TAB PO SCH (10:31)
[2021-07-16] MEDS: METOPROLOL TARTRATE 25 MG TAB PO SCH ×2 (10:31→22:19)
[2021-07-16] MEDS: MULTIPLE VITAMIN TAB PO SCH (10:32)
[2021-07-16] MEDS: ZINC SULFATE 220mg CAP or TAB PO SCH (10:32)
[2021-07-16] MEDS: fentaNYL Drip 2500mCg/250mlNS 250 ML IV SCH (10:32)
[2021-07-16 12:11] VITALS: BP 102/65
[2021-07-16] MEDS: POTASSIUM CHL 20MEQ/50ML 50 ML IV SCH ×3 (14:00→17:52)
[2021-07-16] MEDS: hydrALAZINE HCL 20 MG/ML VL IV PRN (18:56)
[2021-07-16 23:27] VITALS: BP 185/99
[2021-07-17] MEDS: ACCU-CHEK COMFORT CURVE STRIP VI SCH ×4 (01:27→17:01)
[2021-07-17] MEDS: InsuLIN REG 1unit/0.01ml Soln (100units/ml) SC SCH ×4 (01:31→16:47)
[2021-07-17] MEDS ORDERED: INFLUENZA QUAD 2021-2022 0.5 ML SYRG IM ONE (04:00)
[2021-07-17 05:00] VITALS: BP 126/72
[2021-07-17] MEDS: HEPARIN SODIUM (PORCINE) 5000 UNITS/ML 1ML VIAL SC SCH ×3 (05:47→21:38)
[2021-07-17 06:14] LABS: Calcium 7.7 mg/dL (8.5-10.1)
[2021-07-17 06:17] LABS: BUN/Creatinine Ratio 16.4
[2021-07-17] MEDS: D5W 5% 1,000 ML IV SCH ×2 (06:32→20:55)
[2021-07-17] MEDS: INSULIN LANTUS (GLARGINE) 1 /0.01ml (100units/ml) SC SCH ×2 (06:37→21:36)
[2021-07-17 08:00] VITALS: BP 160/81
[2021-07-17] MEDS: ASPirin 81 mg TAB PO SCH (08:41)
[2021-07-17] MEDS: MULTIPLE VITAMIN TAB PO SCH (08:41)
[2021-07-17] MEDS: cefTRIAXone 1GM/50ML D5W 50 ML IV SCH (08:41)
[2021-07-17] MEDS: ZINC SULFATE 220mg CAP or TAB PO SCH (08:41)
[2021-07-17] MEDS: FAMOTIDINE (10MG/ML) 2ML VL IV SCH (08:41)
[2021-07-17] MEDS: ASCORBIC ACID 500 MG TAB PO SCH ×2 (08:42→21:42)
[2021-07-17 09:00] VITALS: BP 160/81
[2021-07-17] MEDS: METOPROLOL TARTRATE 25 MG TAB PO SCH ×2 (10:00→21:42)
[2021-07-17] MEDS: amLODIPine BESYLATE 5 MG TAB PO SCH (10:00)
[2021-07-17] MEDS: MIDAZOLAM DRIP 50 mg/50mL 50 ML IV SCH (11:15)
[2021-07-17] MEDS: fentaNYL Drip 2500mCg/250mlNS 250 ML IV SCH (11:21)
[2021-07-17 13:00] VITALS: BP 156/81
[2021-07-17] MEDS: PROPOFOL 100 ML IV SCH (14:17)
[2021-07-17 17:00] VITALS: BP 155/91
[2021-07-17 22:00] VITALS: BP 178/90
[2021-07-18 05:00] VITALS: BP 173/85
[2021-07-18] MEDS: InsuLIN REG 1unit/0.01ml Soln (100units/ml) SC SCH ×4 (06:00→16:32)
[2021-07-18] MEDS: HEPARIN SODIUM (PORCINE) 5000 UNITS/ML 1ML VIAL SC SCH ×4 (06:02→22:14)
[2021-07-18] MEDS: ACCU-CHEK COMFORT CURVE STRIP VI SCH ×4 (06:03→16:32)
[2021-07-18] MEDS: INSULIN LANTUS (GLARGINE) 1 /0.01ml (100units/ml) SC SCH ×2 (06:03→22:14)
[2021-07-18 09:00] VITALS: BP 164/96
[2021-07-18] MEDS: cefTRIAXone 1GM/50ML D5W 50 ML IV SCH (09:00)
[2021-07-18] MEDS: ASCORBIC ACID 500 MG TAB PO SCH ×2 (10:00→22:13)
[2021-07-18] MEDS: METOPROLOL TARTRATE 25 MG TAB PO SCH ×2 (10:00→22:13)
[2021-07-18] MEDS: FAMOTIDINE (10MG/ML) 2ML VL IV SCH (10:00)
[2021-07-18] MEDS: ASPirin 81 mg TAB PO SCH (10:00)
[2021-07-18] MEDS: MULTIPLE VITAMIN TAB PO SCH (10:00)
[2021-07-18] MEDS: ZINC SULFATE 220mg CAP or TAB PO SCH (10:00)
[2021-07-18] MEDS: amLODIPine BESYLATE 5 MG TAB PO SCH (10:00)
[2021-07-18] MEDS: D5W 5% 1,000 ML IV SCH (10:15)
[2021-07-18] MEDS: MIDAZOLAM DRIP 50 mg/50mL 50 ML IV SCH (10:19)
[2021-07-18 12:41] VITALS: BP 153/87
[2021-07-18 17:00] VITALS: BP 158/94
[2021-07-18 22:00] VITALS: BP 186/98
[2021-07-19] MEDS: InsuLIN REG 1unit/0.01ml Soln (100units/ml) SC SCH ×5 (00:53→23:29)
[2021-07-19 05:00] VITALS: BP 126/78
[2021-07-19] MEDS: ACCU-CHEK COMFORT CURVE STRIP VI SCH ×5 (06:00→23:28)
[2021-07-19] MEDS: HEPARIN SODIUM (PORCINE) 5000 UNITS/ML 1ML VIAL SC SCH ×3 (06:00→21:20)
[2021-07-19] MEDS: INSULIN LANTUS (GLARGINE) 1 /0.01ml (100units/ml) SC SCH ×2 (07:00→23:25)
[2021-07-19] MEDS: METOPROLOL TARTRATE 25 MG TAB PO SCH ×2 (08:17→21:35)
[2021-07-19] MEDS: FAMOTIDINE (10MG/ML) 2ML VL IV SCH (08:17)
[2021-07-19] MEDS: cefTRIAXone 1GM/50ML D5W 50 ML IV SCH (08:17)
[2021-07-19] MEDS: ASPirin 81 mg TAB PO SCH (08:17)
[2021-07-19] MEDS: MULTIPLE VITAMIN TAB PO SCH (08:18)
[2021-07-19] MEDS: amLODIPine BESYLATE 5 MG TAB PO SCH (08:18)
[2021-07-19] MEDS: ASCORBIC ACID 500 MG TAB PO SCH ×2 (08:18→21:15)
[2021-07-19 08:23] LABS: Hematocrit 31.9 % (41.0-53.0); Hemoglobin 10.7 g/dL (13.5-17.5); Mean Corpuscular Hemoglobin 28.5 pg (28.0-32.0); Mean Corpuscular Hgb Conc. 33.5 g/dL (32.0-36.0); Red Blood Cells 3.76 10^6/uL (4.5-5.90); Red Cell Distribution Width 13.8 % (11.8-14.3); White Blood Cell 4.8 10^3/uL (4.4-10.8)
[2021-07-19 08:28] LABS: Basophils % (manual) 0 (0.0-2.0); Blast Cells 0; Metamyelocytes % 0; Promyelocytes % 0
[2021-07-19 09:09] VITALS: BP 190/89
[2021-07-19] MEDS: ZINC SULFATE 220mg CAP or TAB PO SCH (10:00)
[2021-07-19] MEDS: MIDAZOLAM DRIP 50 mg/50mL 50 ML IV SCH (11:15)
[2021-07-19 12:03] LABS: Calcium 7.3 mg/dL (8.5-10.1); Magnesium 2.1 mg/dL (1.6-2.6); Potassium 5.4 mmol/L (3.5-5.1)
[2021-07-19 12:06] LABS: BUN/Creatinine Ratio 11.2; Bilirubin, Total 0.1 mg/dL (0.2-1.0); Total Protein 5.2 g/dL (6.4-8.2)
[2021-07-19] MEDS: D5W 5% 1,000 ML IV SCH (12:20)
[2021-07-19 13:13] VITALS: BP 157/87
[2021-07-19 13:14] LABS: Band Neutrophils % (manual) 7; Eosinophils % (manual) 7 (0-7); Lymphocytes % (manual) 22 (10.0-50.0); Monocytes % (manual) 17 (0-12); Myelocytes % 1; Reactive Lymphocytes 1
[2021-07-19] MEDS: LOPERAMIDE HCL 2 MG CAP PO PRN ×3 (13:35→23:35)
[2021-07-19] MEDS: metroNIDAZOLE 500 MG TAB PO SCH ×2 (14:42→21:14)
[2021-07-19] MEDS: VANCOMYCIN HCL 125MG/5ML ORAL SOL GT SCH ×2 (17:09→23:28)
[2021-07-19 21:56] VITALS: BP 138/81
[2021-07-20] MEDS: D5W 5% 1,000 ML IV SCH ×2 (02:13→15:35)
[2021-07-20 05:00] VITALS: BP 152/84
[2021-07-20] MEDS: InsuLIN REG 1unit/0.01ml Soln (100units/ml) SC SCH ×3 (06:00→18:00)
[2021-07-20] MEDS: ACCU-CHEK COMFORT CURVE STRIP VI SCH ×3 (06:00→18:13)
[2021-07-20] MEDS: HEPARIN SODIUM (PORCINE) 5000 UNITS/ML 1ML VIAL SC SCH ×4 (06:00→22:00)
[2021-07-20] MEDS: metroNIDAZOLE 500 MG TAB PO SCH ×3 (06:33→22:05)
[2021-07-20] MEDS: VANCOMYCIN HCL 125MG/5ML ORAL SOL GT SCH (06:33)
[2021-07-20] MEDS: INSULIN LANTUS (GLARGINE) 1 /0.01ml (100units/ml) SC SCH ×2 (06:35→22:07)
[2021-07-20] MEDS: LOPERAMIDE HCL 2 MG CAP PO PRN (06:51)
[2021-07-20 09:00] VITALS: BP 141/81
[2021-07-20] MEDS: ASPirin 81 mg TAB PO SCH (09:26)
[2021-07-20] MEDS: ZINC SULFATE 220mg CAP or TAB PO SCH (09:26)
[2021-07-20] MEDS: FAMOTIDINE (10MG/ML) 2ML VL IV SCH (09:26)
[2021-07-20] MEDS: MULTIPLE VITAMIN TAB PO SCH (09:27)
[2021-07-20] MEDS: METOPROLOL TARTRATE 25 MG TAB PO SCH ×2 (09:27→22:06)
[2021-07-20] MEDS: ASCORBIC ACID 500 MG TAB PO SCH ×2 (09:28→22:06)
[2021-07-20] MEDS: amLODIPine BESYLATE 5 MG TAB PO SCH (09:28)
[2021-07-20 12:45] VITALS: BP 152/86
[2021-07-20] MEDS: VANCOMYCIN HCL 125MG/5ML ORAL SOL PO SCH ×2 (15:05→18:09)
[2021-07-20 17:00] VITALS: BP 159/84
[2021-07-20 21:09] VITALS: BP 135/84
[2021-07-21] MEDS: VANCOMYCIN HCL 125MG/5ML ORAL SOL PO SCH ×3 (00:30→11:15)
[2021-07-21] MEDS: InsuLIN REG 1unit/0.01ml Soln (100units/ml) SC SCH ×3 (00:30→11:14)
[2021-07-21] MEDS: D5W 5% 1,000 ML IV SCH ×2 (04:15→05:40)
[2021-07-21 05:00] VITALS: BP 130/72
[2021-07-21] MEDS: ACCU-CHEK COMFORT CURVE STRIP VI SCH ×3 (05:39→11:14)
[2021-07-21] MEDS: HEPARIN SODIUM (PORCINE) 5000 UNITS/ML 1ML VIAL SC SCH ×2 (05:40→10:37)
[2021-07-21] MEDS: INSULIN LANTUS (GLARGINE) 1 /0.01ml (100units/ml) SC SCH (05:40)
[2021-07-21] MEDS: metroNIDAZOLE 500 MG TAB PO SCH (06:09)
[2021-07-21 06:24] LABS: Basophils # (auto) 0.1 10 ^3/uL (0-0.2); Basophils % (auto) 0.9 % (0.0-2.0); Eosinophils # (auto) 0.2 10 ^3/uL (0-0.8); Eosinophils % (auto) 3.5 % (0.0-7.0); Hematocrit 27.8 % (41.0-53.0); Hemoglobin 9.4 g/dL (13.5-17.5); Lymphocytes # (auto) 1.4 10 ^3/uL (0.4-5.4); Lymphocytes % (auto) 24.5 % (10.0-50.0); Mean Corpuscular Hemoglobin 28.5 pg (28.0-32.0); Mean Corpuscular Hgb Conc. 33.9 g/dL (32.0-36.0); Monocytes # (auto) 0.7 10 ^3/uL (0-1.3); Monocytes % (auto) 12.6 % (0.0-12.0); Neutrophils # (auto) 3.4 10 ^3/uL (1.6-8.6); Neutrophils % (auto) 58.5 % (37.0-80.0); Red Blood Cells 3.31 10^6/uL (4.5-5.90); Red Cell Distribution Width 13.4 % (11.8-14.3); White Blood Cell 5.8 10^3/uL (4.4-10.8)
[2021-07-21 06:51] LABS: Potassium 4.1 mmol/L (3.5-5.1)
[2021-07-21 06:58] LABS: Albumin 2.1 g/dL (3.4-5.0); BUN/Creatinine Ratio 11.2; Bilirubin, Total 0.2 mg/dL (0.2-1.0); Calcium 7.8 mg/dL (8.5-10.1); Magnesium 2.2 mg/dL (1.6-2.6); Total Protein 5.4 g/dL (6.4-8.2)
[2021-07-21 08:55] VITALS: BP 153/73
[2021-07-21] MEDS: ASPirin 81 mg TAB PO SCH (09:57)
[2021-07-21] MEDS: FAMOTIDINE (10MG/ML) 2ML VL IV SCH (09:57)
[2021-07-21] MEDS: MULTIPLE VITAMIN TAB PO SCH (09:57)
[2021-07-21] MEDS: ZINC SULFATE 220mg CAP or TAB PO SCH (09:57)
[2021-07-21] MEDS: METOPROLOL TARTRATE 25 MG TAB PO SCH (09:57)
[2021-07-21] MEDS: amLODIPine BESYLATE 5 MG TAB PO SCH (09:58)
[2021-07-21] MEDS: ASCORBIC ACID 500 MG TAB PO SCH (09:58)
[2021-07-21] MEDS ORDERED: VANC125PO PO (11:34)
[2021-07-21] MEDS ORDERED: NITR0.4S29 SL (11:34)
[2021-07-21] MEDS ORDERED: AML5T PO (11:34)
[2021-07-21] MEDS ORDERED: MET25T PO (11:34)
[2021-07-21] MEDS ORDERED: ASPI1CHW15 PO (11:34)
[2021-07-21] MEDS ORDERED: MET500T PO (11:34)
[2021-07-21 12:00] VITALS: BP 153/73
[2021-07-21 13:00] VITALS: BP 143/83
== END 2021-07-21 14:38 | disposition home health service (06) | DRG 720 ==
LOC: EDBD 20:02 → ER 20:03 → OVERFLOW 07-12 01:32 → TELE-EAST 07-15 08:06
PROVIDERS: ADMIT Nurse Practitioner Family; ATTEND Internal Medicine
PROC: 5A1945Z Respiratory Ventilation, 24-96 Consecutive Hours (ICD-10-PCS; principal; 2021-07-12)
PROC: 0BH17EZ Insertion of Endotracheal Airway into Trachea, Via Natural or Artificial Opening (ICD-10-PCS; 2021-07-12)
PROC: 02HV33Z Insertion of Infusion Device into Superior Vena Cava, Percutaneous Approach (ICD-10-PCS; 2021-07-12)
PROC: 4A143B0 Monitoring of Venous Pressure, Central, Percutaneous Approach (ICD-10-PCS; 2021-07-12)
DX: A41.9 Sepsis, unspecified organism (principal); J96.00 Acute respiratory failure, unspecified whether with hypoxia or hypercapnia; J12.82 Pneumonia due to coronavirus disease 2019; R65.21 Severe sepsis with septic shock; E11.10 Type 2 diabetes mellitus with ketoacidosis without coma; A04.72 Enterocolitis due to Clostridium difficile, not specified as recurrent; U07.1 COVID-19; I21.4 Non-ST elevation (NSTEMI) myocardial infarction; G93.41 Metabolic encephalopathy; D63.1 Anemia in chronic kidney disease; E86.0 Dehydration; E87.5 Hyperkalemia; D50.9 Iron deficiency anemia, unspecified; F19.10 Other psychoactive substance abuse, uncomplicated; E11.22 Type 2 diabetes mellitus with diabetic chronic kidney disease; E03.9 Hypothyroidism, unspecified; E78.5 Hyperlipidemia, unspecified; E87.0 Hyperosmolality and hypernatremia; E87.6 Hypokalemia; F15.10 Other stimulant abuse, uncomplicated; F17.210 Nicotine dependence, cigarettes, uncomplicated; I12.9 Hypertensive chronic kidney disease with stage 1 through stage 4 chronic kidney disease, or unspecified chronic kidney disease; N18.2 Chronic kidney disease, stage 2 (mild); K21.9 Gastro-esophageal reflux disease without esophagitis; B19.20 Unspecified viral hepatitis C without hepatic coma; Z79.899 Other long term (current) drug therapy; Z80.0 Family history of malignant neoplasm of digestive organs; Z83.3 Family history of diabetes mellitus; Z91.19 Patient's noncompliance with other medical treatment and regimen; Z86.73 Personal history of transient ischemic attack (TIA), and cerebral infarction without residual deficits
CPT/HCPCS: 36415; 36600; 70450; 71045; 76775; 80048; 80053; 80307; 80320; 81001; 82010; 82570; 82805; 82962; 83036; 83605; 83735; 83880; 84100; 84156; 84300; 84443; 84484; 85007; 85025; 85027; 85379; 86803; 87040; 87340; 87426; 87493; 93005; 93306; 94003; 94640; 96365; 96367; 96372; 96375; 96376; 97163; 99291; G0378; J0696; J1815; J2250; J2704; J3490; J7042; J7060

== ENCOUNTER 2021-08-14 16:36 | Inpatient (IN) | payer MEDICAID ==
[~2021-08-14] VITALS: Ht 182.9 cm; Wt 103.0 kg
[2021-08-14 16:36] VITALS: BP 99/74
[~2021-08-14 16:36] MED LIST changes: -AMLO-496 PO; +ASPI1CHW15 PO; -INSREGI SC; -LABE200T6 PO; +MET25T PO; +MET500T PO; +NITR0.4S29 SL; -PANT40TA2 PO; +VANC125PO PO
[2021-08-14] MEDS ORDERED: EPINEPHrine HCL 250 ML IV ONE (16:47)
[2021-08-14] MEDS: MIDAZOLAM DRIP 50 mg/50mL 50 ML IV SCH ×3 (16:50→20:06)
[2021-08-14] MEDS: NOREPINEPHRINE 8 MG/250ML KIT 250 ML IV SCH ×3 (16:50→19:50)
[2021-08-14] MEDS: EPINEPHrine HCL 250 ML IV SCH ×2 (17:00→19:49)
[2021-08-14] MEDS ORDERED: MIDAZOLAM DRIP 50 mg/50mL 50 ML IV ONE (17:09)
[2021-08-14] MEDS ORDERED: fentaNYL Drip 2500mCg/250mlNS 250 ML IV ONE (17:16)
[2021-08-14] MEDS: fentaNYL Drip 2500mCg/250mlNS 250 ML IV SCH ×2 (17:25→19:51)
[2021-08-14] MEDS ORDERED: LIDOCAINE 2% JELLY 11ml (GLYDO) ONE (17:28)
[2021-08-14 17:30] VITALS: BP 148/100
[2021-08-14 17:34] LABS: Basophils # (auto) 0 10 ^3/uL (0-0.2); Basophils % (auto) 0.1 % (0.0-2.0); Eosinophils # (auto) 0 10 ^3/uL (0-0.8); Eosinophils % (auto) 0.2 % (0.0-7.0); Hemoglobin 10.2 g/dL (13.5-17.5); Lymphocytes # (auto) 0.8 10 ^3/uL (0.4-5.4); Lymphocytes % (auto) 5.7 % (10.0-50.0); Mean Corpuscular Hgb Conc. 31.7 g/dL (32.0-36.0); Mean Corpuscular Volume 91.2 fL (80.0-100.0); Monocytes # (auto) 0.5 10 ^3/uL (0-1.3); Monocytes % (auto) 3.5 % (0.0-12.0); Neutrophils # (auto) 12.5 10 ^3/uL (1.6-8.6); Neutrophils % (auto) 90.5 % (37.0-80.0); Nucleated Red Blood Cells % 0.1 %; Red Blood Cells 3.51 10^6/uL (4.5-5.90); Red Cell Distribution Width 16.6 % (11.8-14.3); White Blood Cell 13.8 10^3/uL (4.4-10.8)
[2021-08-14 17:40] LABS: Albumin 2.4 g/dL (3.4-5.0); Calcium 7.9 mg/dL (8.5-10.1); Potassium 4.7 mmol/L (3.5-5.1)
[2021-08-14 17:44] LABS: Bilirubin, Total 0.3 mg/dL (0.2-1.0)
[2021-08-14 17:46] LABS: BUN/Creatinine Ratio 11.8
[2021-08-14 18:48] LABS: Urine Bacteria NONE SEEN /hpf (None Seen); Urine Blood Negative /uL (Negative); Urine Specific Gravity 1.011 (1.001-1.035); Urine WBC 4 /hpf (0 - 3)
[2021-08-14 18:55] LABS: Alcohol, Urine < 3.0 mg/dL (0-10); Amphetamine Screen, Urine POSITIVE (NEGATIVE); Barbiturate Scree,Urine NEGATIVE (NEGATIVE); Benzodiazephine Screen, Urine NEGATIVE (NEGATIVE); Cannabinoid Screen, Urine NEGATIVE (NEGATIVE); Cocaine Screen, Urine NEGATIVE (NEGATIVE); Opiate Scree,Urine NEGATIVE (NEGATIVE); Phencyclidine Screen, Urine NEGATIVE (NEGATIVE)
[2021-08-14] MEDS ORDERED: ONDANSETRON HCL 4 MG/2 ML VIAL IV PRN (22:15)
[2021-08-14] MEDS: SODIUM CHLORIDE 0.9% 1,000 ML IV SCH (22:15)
[2021-08-14] MEDS ORDERED: ALBUMIN 25% 100 ML IV ONE (22:15)
[2021-08-14] MEDS ORDERED: ACETAMINOPHEN 650 MG RECT SUPP PR PRN (22:15)
[2021-08-14] MEDS ORDERED: cefTRIAXone 1GM/50ML D5W 50 ML IV ONE (22:15)
[2021-08-14] MEDS ORDERED: DEXTROSE (50%) 50ML SYRG IV PRN (22:30)
[2021-08-14 22:45] VITALS: BP 109/75
[2021-08-14] MEDS ORDERED: D5W/SOD CHL 0.45% 1,000 ML IV ONE (22:45)
[2021-08-14] MEDS ORDERED: MORPHINE SULFATE INJECTION 2 MG/ML SYRG IV PRN (23:30)
[2021-08-14] MEDS ORDERED: NITROGLYCERIN 0.4 MG SL TAB SL PRN (23:30)
[2021-08-15] VITALS (9 sets, daily range): BP systolic 91–114; BP diastolic 53–75
[2021-08-15 01:35] LABS: Anion Gap 5 (5-15); BUN/Creatinine Ratio 13.9; Blood Urea Nitrogen 23 mg/dL (7-18); Calcium 6.7 mg/dL (8.5-10.1); Carbon Dioxide 21 mmol/L (21-32); Chloride 112 mmol/L (98-107); GFR African American 57 mL/min; GFR Non-African American 47 mL/min; Glucose 112 mg/dL (74-106); Potassium 4.8 mmol/L (3.5-5.1); Sodium 138 mmol/L (136-145)
[2021-08-15 01:38] LABS: Creatine Kinase IFCC 367 U/L (39-308)
[2021-08-15] MEDS: InsuLIN REG 1unit/0.01ml Soln (100units/ml) SC SCH ×5 (05:09→22:00)
[2021-08-15] MEDS: ACCU-CHEK COMFORT CURVE STRIP VI SCH ×5 (05:10→22:00)
[2021-08-15 07:48] LABS: Basophils # (auto) 0.1 10 ^3/uL (0-0.2); Basophils % (auto) 1.2 % (0.0-2.0); Eosinophils # (auto) 0 10 ^3/uL (0-0.8); Hematocrit 28.3 % (41.0-53.0); Lymphocytes # (auto) 0.5 10 ^3/uL (0.4-5.4); Lymphocytes % (auto) 4.3 % (10.0-50.0); Mean Corpuscular Hgb Conc. 32.8 g/dL (32.0-36.0); Mean Corpuscular Volume 88.4 fL (80.0-100.0); Monocytes # (auto) 0.7 10 ^3/uL (0-1.3); Monocytes % (auto) 5.8 % (0.0-12.0); Neutrophils # (auto) 10.7 10 ^3/uL (1.6-8.6); Neutrophils % (auto) 88.7 % (37.0-80.0); Red Cell Distribution Width 16.4 % (11.8-14.3)
[2021-08-15 07:50] LABS: Hemoglobin 9.3 g/dL (13.5-17.5)
[2021-08-15 08:07] LABS: Albumin 2.3 g/dL (3.4-5.0); Calcium 7.3 mg/dL (8.5-10.1)
[2021-08-15 08:11] LABS: BUN/Creatinine Ratio 13.3; Bilirubin, Total 0.2 mg/dL (0.2-1.0); Total Protein 5.2 g/dL (6.4-8.2)
[2021-08-15] MEDS: FAMOTIDINE (10MG/ML) 2ML VL IV SCH ×2 (11:25→22:17)
[2021-08-15] MEDS: HEPARIN SODIUM (PORCINE) 5000 UNITS/ML 1ML VIAL SC SCH ×2 (11:26→22:18)
[2021-08-15] MEDS ORDERED: ATROPINE SULF 1 MG/10ml SYR IV ONE (12:07)
[2021-08-15] MEDS: PROPOFOL 100 ML IV SCH (12:17)
[2021-08-15] MEDS ORDERED: EPINEPHrine HCL 1 MG/10 ML SYRG IV ONE (12:58)
[2021-08-15] MEDS: D5W/SOD CHL 0.45% 1,000 ML IV SCH ×2 (13:43→23:00)
[2021-08-15] MEDS: SODIUM CHLORIDE 0.9% 1,000 ML IV SCH (15:28)
[2021-08-15] MEDS: MIDAZOLAM DRIP 50 mg/50mL 50 ML IV SCH (20:30)
[2021-08-15] MEDS: cefTRIAXone 1GM/50ML D5W 50 ML IV SCH (22:48)
[2021-08-16] VITALS (30 sets, daily range): BP systolic 89–150; BP diastolic 52–81
[2021-08-16] MEDS: InsuLIN REG 1unit/0.01ml Soln (100units/ml) SC SCH ×4 (02:00→18:24)
[2021-08-16] MEDS: ACCU-CHEK COMFORT CURVE STRIP VI SCH ×3 (02:00→11:40)
[2021-08-16] MEDS: MIDAZOLAM DRIP 50 mg/50mL 50 ML IV SCH (02:40)
[2021-08-16 04:10] LABS: Basophils # (auto) 0 10 ^3/uL (0-0.2); Basophils % (auto) 0.5 % (0.0-2.0); Eosinophils # (auto) 0.1 10 ^3/uL (0-0.8); Hematocrit 25.4 % (41.0-53.0); Hemoglobin 8.6 g/dL (13.5-17.5); Lymphocytes # (auto) 0.5 10 ^3/uL (0.4-5.4); Lymphocytes % (auto) 5.6 % (10.0-50.0); Mean Corpuscular Hemoglobin 30.5 pg (28.0-32.0); Mean Corpuscular Hgb Conc. 33.7 g/dL (32.0-36.0); Mean Corpuscular Volume 90.6 fL (80.0-100.0); Monocytes # (auto) 0.3 10 ^3/uL (0-1.3); Monocytes % (auto) 3.7 % (0.0-12.0); Neutrophils # (auto) 7.9 10 ^3/uL (1.6-8.6); Neutrophils % (auto) 89.2 % (37.0-80.0); Red Blood Cells 2.81 10^6/uL (4.5-5.90); Red Cell Distribution Width 16.8 % (11.8-14.3); White Blood Cell 8.9 10^3/uL (4.4-10.8)
[2021-08-16 04:27] LABS: Potassium 4.7 mmol/L (3.5-5.1)
[2021-08-16 04:37] LABS: Alanine Aminotransferase 129 U/L (16-61); Albumin 2.2 g/dL (3.4-5.0); Alkaline Phosphatase 111 U/L (45-117); Aspartate Aminotransferase 130 U/L (15-37); Bilirubin, Direct < 0.1 mg/dL (0-0.2); Bilirubin, Total 0.2 mg/dL (0.2-1.0); Total Protein 4.9 g/dL (6.4-8.2)
[2021-08-16 04:50] LABS: Albumin 2.2 g/dL (3.4-5.0); BUN/Creatinine Ratio 12.1; Bilirubin, Total 0.3 mg/dL (0.2-1.0); Calcium 7.2 mg/dL (8.5-10.1); Magnesium 1.7 mg/dL (1.6-2.6); Total Protein 4.9 g/dL (6.4-8.2)
[2021-08-16] MEDS: fentaNYL Drip 2500mCg/250mlNS 250 ML IV SCH (05:55)
[2021-08-16] MEDS: HEPARIN SODIUM (PORCINE) 5000 UNITS/ML 1ML VIAL SC SCH ×2 (08:50→21:54)
[2021-08-16] MEDS: FAMOTIDINE (10MG/ML) 2ML VL IV SCH ×2 (08:50→21:52)
[2021-08-16] MEDS: D5W/SOD CHL 0.45% 1,000 ML IV SCH ×2 (09:00→18:21)
[2021-08-16] MEDS ORDERED: SODIUM CHLORIDE 0.9% 1,000 ML IV ONE (11:15)
[2021-08-16] MEDS: DOXYCYCLINE 100MG/250ML 250 ML IV SCH ×2 (11:15→23:00)
[2021-08-16] MEDS: PROPOFOL 100 ML IV SCH (11:45)
[2021-08-16] MEDS ORDERED: TPN PER PHARMACY 0 ML IV SCH (14:00)
[2021-08-16] MEDS: NOREPINEPHRINE 8 MG/250ML KIT 250 ML IV SCH (17:00)
[2021-08-16] MEDS: EPINEPHrine HCL 250 ML IV SCH (17:00)
[2021-08-16] MEDS ORDERED: DEXTROSE (50%) 50ML SYRG IV SCH (18:00)
[2021-08-16] MEDS ORDERED: InsuLIN REG 1unit/0.01ml Soln (100units/ml) SC ONE (18:00)
[2021-08-16] MEDS ORDERED: AMINO ACID INFUSION IN D10W 1,000 ML IV NR (20:00)
[2021-08-16] MEDS: cefTRIAXone 1GM/50ML D5W 50 ML IV SCH ×2 (21:00→21:53)
[2021-08-16] MEDS: ALBUTEROL SULF 2.5 MG/0.5ML(0.5%) NEB SOLN NEB SCH (22:11)
[2021-08-16] MEDS ORDERED: GLYCOPYRROLATE 0.2 MG/ML 1ML VIAL ONE (22:11)
[2021-08-16] MEDS: ACETYLCYSTEINE 20%(200MG/ML) SOL 4ML NEB SCH (22:11)
[2021-08-16] MEDS: GLYCOPYRROLATE 0.2 MG/ML 1ML VIAL IV SCH (22:15)
[2021-08-17] VITALS (29 sets, daily range): BP systolic 107–181; BP diastolic 60–91
[2021-08-17] MEDS: InsuLIN REG 1unit/0.01ml Soln (100units/ml) SC SCH ×4 (00:02→17:01)
[2021-08-17] MEDS: D5W/SOD CHL 0.45% 1,000 ML IV SCH (05:00)
[2021-08-17] MEDS: ACCU-CHEK COMFORT CURVE STRIP VI SCH ×4 (05:57→17:01)
[2021-08-17] MEDS: GLYCOPYRROLATE 0.2 MG/ML 1ML VIAL IV SCH ×3 (06:00→22:00)
[2021-08-17 06:51] LABS: Basophils # (auto) 0 10 ^3/uL (0-0.2); Basophils % (auto) 0.6 % (0.0-2.0); Eosinophils # (auto) 0 10 ^3/uL (0-0.8); Eosinophils % (auto) 0.1 % (0.0-7.0); Hematocrit 25.4 % (41.0-53.0); Hemoglobin 8.5 g/dL (13.5-17.5); Lymphocytes # (auto) 0.3 10 ^3/uL (0.4-5.4); Lymphocytes % (auto) 4.6 % (10.0-50.0); Mean Corpuscular Hemoglobin 29.8 pg (28.0-32.0); Mean Corpuscular Hgb Conc. 33.5 g/dL (32.0-36.0); Mean Corpuscular Volume 88.8 fL (80.0-100.0); Monocytes # (auto) 0.6 10 ^3/uL (0-1.3); Neutrophils # (auto) 5.8 10 ^3/uL (1.6-8.6); Neutrophils % (auto) 85.7 % (37.0-80.0); Red Blood Cells 2.86 10^6/uL (4.5-5.90); Red Cell Distribution Width 16.3 % (11.8-14.3); White Blood Cell 6.8 10^3/uL (4.4-10.8)
[2021-08-17 07:18] LABS: Albumin 1.9 g/dL (3.4-5.0); Calcium 7.5 mg/dL (8.5-10.1); Magnesium 1.8 mg/dL (1.6-2.6); Potassium 3.7 mmol/L (3.5-5.1)
[2021-08-17 07:24] LABS: Bilirubin, Total 0.2 mg/dL (0.2-1.0); Phosphorus 3.8 mg/dL (2.5-4.90); Pre Albumin 10.8 mg/dL (20.0-40.0)
[2021-08-17] MEDS: HEPARIN SODIUM (PORCINE) 5000 UNITS/ML 1ML VIAL SC SCH ×2 (09:16→22:00)
[2021-08-17] MEDS: FAMOTIDINE (10MG/ML) 2ML VL IV SCH ×2 (09:16→23:52)
[2021-08-17] MEDS: DOPamine 1600MCG/ML D5W 250 ML IV SCH ×2 (11:15→12:55)
[2021-08-17] MEDS: ASPirin 81 mg TAB PO SCH (11:29)
[2021-08-17] MEDS: PROPOFOL 100 ML IV SCH (11:29)
[2021-08-17] MEDS: DOXYCYCLINE 100MG/250ML 250 ML IV SCH ×2 (11:29→23:00)
[2021-08-17 11:59] LABS: Protein, Urine 97.2 mg/dL (0.0-11.9)
[2021-08-17 12:48] LABS: Magnesium 1.4 mg/dL (1.6-2.6); Phosphorus 4.2 mg/dL (2.5-4.90)
[2021-08-17] MEDS: SODIUM BICARBONATE 50ML VIAL 50 ML in D5W/SOD CHL 0.45% 1,000 ML IV SCH ×2 (13:06→22:00)
[2021-08-17] MEDS: EPINEPHrine HCL 250 ML IV SCH (15:24)
[2021-08-17] MEDS: NOREPINEPHRINE 8 MG/250ML KIT 250 ML IV SCH (16:35)
[2021-08-17] MEDS: fentaNYL Drip 2500mCg/250mlNS 250 ML IV SCH (16:35)
[2021-08-17] MEDS: MIDAZOLAM DRIP 50 mg/50mL 50 ML IV SCH (16:36)
[2021-08-17] MEDS: ALBUTEROL SULF 2.5 MG/0.5ML(0.5%) NEB SOLN NEB SCH ×2 (16:55→16:56)
[2021-08-17] MEDS: ACETYLCYSTEINE 20%(200MG/ML) SOL 4ML NEB SCH ×2 (16:55→16:56)
[2021-08-17] MEDS: TPN PER PHARMACY IV NR ×9 (20:25)
[2021-08-17] MEDS: metroNIDAZOLE 500MG/100ML 100 ML IV SCH ×2 (22:00→23:55)
[2021-08-17 22:55] LABS: INR 1.09 (0.9-1.15)
[2021-08-18] VITALS (29 sets, daily range): BP systolic 111–198; BP diastolic 65–90
[2021-08-18] MEDS: ACCU-CHEK COMFORT CURVE STRIP VI SCH ×5 (00:02→23:29)
[2021-08-18] MEDS: InsuLIN REG 1unit/0.01ml Soln (100units/ml) SC SCH ×5 (00:02→23:21)
[2021-08-18] MEDS: PROPOFOL 100 ML IV SCH (01:00)
[2021-08-18] MEDS: fentaNYL Drip 2500mCg/250mlNS 250 ML IV SCH (03:34)
[2021-08-18] MEDS: MIDAZOLAM DRIP 50 mg/50mL 50 ML IV SCH (03:40)
[2021-08-18] MEDS: SODIUM BICARBONATE 50ML VIAL 50 ML in D5W/SOD CHL 0.45% 1,000 ML IV SCH ×3 (04:03→21:56)
[2021-08-18] MEDS: ALBUTEROL SULF 2.5 MG/0.5ML(0.5%) NEB SOLN NEB SCH ×4 (04:17→18:39)
[2021-08-18] MEDS: ACETYLCYSTEINE 20%(200MG/ML) SOL 4ML NEB SCH ×4 (04:17→18:39)
[2021-08-18 05:08] LABS: Potassium 4.1 mmol/L (3.5-5.1)
[2021-08-18 05:21] LABS: Albumin 1.6 g/dL (3.4-5.0); BUN/Creatinine Ratio 12.5; Calcium 7.6 mg/dL (8.5-10.1); Magnesium 1.6 mg/dL (1.6-2.6)
[2021-08-18 05:24] LABS: Bilirubin, Total 0.4 mg/dL (0.2-1.0); Phosphorus 3.6 mg/dL (2.5-4.90); Total Protein 5.1 g/dL (6.4-8.2)
[2021-08-18] MEDS: GLYCOPYRROLATE 0.2 MG/ML 1ML VIAL IV SCH ×3 (06:07→21:58)
[2021-08-18] MEDS ORDERED: LABETALOL HCL 5 MG/ML 4ML SYRINGE IV PRN (07:30)
[2021-08-18] MEDS ORDERED: amLODIPine BESYLATE 5 MG TAB PO ONE (07:30)
[2021-08-18] MEDS: hydrALAZINE HCL 20 MG/ML VL IV PRN (07:51)
[2021-08-18 08:19] LABS: Basophils # (auto) 0.1 10 ^3/uL (0-0.2); Basophils % (auto) 0.9 % (0.0-2.0); Eosinophils # (auto) 0.2 10 ^3/uL (0-0.8); Eosinophils % (auto) 2.9 % (0.0-7.0); Hematocrit 26.4 % (41.0-53.0); Hemoglobin 8.7 g/dL (13.5-17.5); Lymphocytes # (auto) 0.7 10 ^3/uL (0.4-5.4); Lymphocytes % (auto) 13.3 % (10.0-50.0); Mean Corpuscular Hgb Conc. 32.8 g/dL (32.0-36.0); Mean Corpuscular Volume 88.4 fL (80.0-100.0); Monocytes # (auto) 0.6 10 ^3/uL (0-1.3); Monocytes % (auto) 11.6 % (0.0-12.0); Neutrophils # (auto) 3.8 10 ^3/uL (1.6-8.6); Neutrophils % (auto) 71.3 % (37.0-80.0); Nucleated Red Blood Cells % 0.1 %; Red Blood Cells 2.99 10^6/uL (4.5-5.90); Red Cell Distribution Width 16.6 % (11.8-14.3); White Blood Cell 5.3 10^3/uL (4.4-10.8)
[2021-08-18] MEDS: FAMOTIDINE (10MG/ML) 2ML VL IV SCH ×2 (09:07→21:57)
[2021-08-18] MEDS: HEPARIN SODIUM (PORCINE) 5000 UNITS/ML 1ML VIAL SC SCH ×2 (09:08→21:59)
[2021-08-18] MEDS: ASPirin 81 mg TAB PO SCH (09:08)
[2021-08-18] MEDS: DOXYCYCLINE 100MG/250ML 250 ML IV SCH ×2 (10:47→22:21)
[2021-08-18] MEDS: LABETALOL HCL 5 MG/ML ML 20ML VIAL IV PRN ×2 (10:48→14:45)
[2021-08-18] MEDS: metroNIDAZOLE 500MG/100ML 100 ML IV SCH ×2 (13:17→21:57)
[2021-08-18] MEDS: LIDOCAINE 1% (LOCAL ANESTH.) PF 5ml SDV ID ONE ×2 (14:00→15:42)
[2021-08-18] MEDS: EPINEPHrine HCL 250 ML IV SCH (15:43)
[2021-08-18] MEDS: NOREPINEPHRINE 8 MG/250ML KIT 250 ML IV SCH (15:43)
[2021-08-18] MEDS ORDERED: PPN PER PHARMACY IV NR ×9 (20:00)
[2021-08-18] MEDS: TPN PER PHARMACY IV NR ×9 (20:02)
[2021-08-18] MEDS: cefTRIAXone 1GM/50ML D5W 50 ML IV SCH (21:00)
[2021-08-18] MEDS: SODIUM CHLOR 0.9% PF (SALINE LOCK) 10ML VIAL/SYR IV SCH (21:58)
[2021-08-19] VITALS (30 sets, daily range): BP systolic 128–193; BP diastolic 75–95
[2021-08-19] MEDS: LABETALOL HCL 5 MG/ML ML 20ML VIAL IV PRN ×4 (01:50→14:51)
[2021-08-19 03:13] LABS: Basophils # (auto) 0 10 ^3/uL (0-0.2); Basophils % (auto) 0.7 % (0.0-2.0); Eosinophils # (auto) 0.2 10 ^3/uL (0-0.8); Eosinophils % (auto) 3.4 % (0.0-7.0); Hematocrit 23.7 % (41.0-53.0); Lymphocytes # (auto) 0.7 10 ^3/uL (0.4-5.4); Lymphocytes % (auto) 12.1 % (10.0-50.0); Mean Corpuscular Hemoglobin 29.7 pg (28.0-32.0); Mean Corpuscular Hgb Conc. 33.8 g/dL (32.0-36.0); Mean Corpuscular Volume 87.8 fL (80.0-100.0); Monocytes # (auto) 0.7 10 ^3/uL (0-1.3); Monocytes % (auto) 12.3 % (0.0-12.0); Neutrophils # (auto) 3.9 10 ^3/uL (1.6-8.6); Neutrophils % (auto) 71.5 % (37.0-80.0); Red Cell Distribution Width 15.9 % (11.8-14.3); White Blood Cell 5.4 10^3/uL (4.4-10.8)
[2021-08-19 03:34] LABS: Albumin 1.5 g/dL (3.4-5.0); Calcium 7.5 mg/dL (8.5-10.1); Magnesium 1.5 mg/dL (1.6-2.6); Potassium 3.7 mmol/L (3.5-5.1)
[2021-08-19 03:36] LABS: BUN/Creatinine Ratio 14.2
[2021-08-19 03:39] LABS: Bilirubin, Total 0.2 mg/dL (0.2-1.0); Phosphorus 2.6 mg/dL (2.5-4.90); Total Protein 4.6 g/dL (6.4-8.2)
[2021-08-19] MEDS: metroNIDAZOLE 500MG/100ML 100 ML IV SCH ×3 (05:04→22:00)
[2021-08-19] MEDS: SODIUM BICARBONATE 50ML VIAL 50 ML in D5W/SOD CHL 0.45% 1,000 ML IV SCH ×3 (05:04→22:03)
[2021-08-19] MEDS: GLYCOPYRROLATE 0.2 MG/ML 1ML VIAL IV SCH ×2 (05:05→13:02)
[2021-08-19] MEDS: ACCU-CHEK COMFORT CURVE STRIP VI SCH ×4 (05:14→23:55)
[2021-08-19] MEDS: InsuLIN REG 1unit/0.01ml Soln (100units/ml) SC SCH ×4 (05:19→23:51)
[2021-08-19] MEDS: ALBUTEROL SULF 2.5 MG/0.5ML(0.5%) NEB SOLN NEB SCH ×3 (06:15→20:01)
[2021-08-19] MEDS: ACETYLCYSTEINE 20%(200MG/ML) SOL 4ML NEB SCH ×3 (06:15→20:01)
[2021-08-19] MEDS: hydrALAZINE HCL 20 MG/ML VL IV PRN ×3 (07:49→22:35)
[2021-08-19] MEDS: SODIUM CHLOR 0.9% PF (SALINE LOCK) 10ML VIAL/SYR IV SCH ×2 (09:14→22:00)
[2021-08-19] MEDS: FAMOTIDINE (10MG/ML) 2ML VL IV SCH ×2 (09:14→22:00)
[2021-08-19] MEDS: ASPirin 81 mg TAB PO SCH (09:14)
[2021-08-19] MEDS: HEPARIN SODIUM (PORCINE) 5000 UNITS/ML 1ML VIAL SC SCH ×2 (09:14→22:00)
[2021-08-19] MEDS: DOPamine 1600MCG/ML D5W 250 ML IV SCH (10:18)
[2021-08-19] MEDS: DOXYCYCLINE 100MG/250ML 250 ML IV SCH (10:28)
[2021-08-19] MEDS: PROPOFOL 100 ML IV SCH (10:28)
[2021-08-19] MEDS: fentaNYL Drip 2500mCg/250mlNS 250 ML IV SCH (16:32)
[2021-08-19] MEDS: MIDAZOLAM DRIP 50 mg/50mL 50 ML IV SCH (16:32)
[2021-08-19] MEDS: NOREPINEPHRINE 8 MG/250ML KIT 250 ML IV SCH (16:32)
[2021-08-19] MEDS: EPINEPHrine HCL 250 ML IV SCH (16:32)
[2021-08-19] MEDS ORDERED: TPN PER PHARMACY IV NR ×8 (20:00)
[2021-08-19] MEDS ORDERED: PPN PER PHARMACY IV NR ×8 (20:00)
[2021-08-19] MEDS: cefTRIAXone 1GM/50ML D5W 50 ML IV SCH (21:00)
[2021-08-20] VITALS (26 sets, daily range): BP systolic 12–194; BP diastolic 65–102
[2021-08-20] MEDS: DOXYCYCLINE 100MG/250ML 250 ML IV SCH ×3 (00:05→23:15)
[2021-08-20] MEDS: LABETALOL HCL 5 MG/ML ML 20ML VIAL IV PRN ×5 (00:08→23:23)
[2021-08-20 04:23] LABS: Albumin 1.5 g/dL (3.4-5.0); Calcium 7.4 mg/dL (8.5-10.1); Magnesium 1.2 mg/dL (1.6-2.6); Potassium 3.5 mmol/L (3.5-5.1)
[2021-08-20 04:26] LABS: Bilirubin, Total 0.2 mg/dL (0.2-1.0); Phosphorus 1.9 mg/dL (2.5-4.90); Total Protein 4.6 g/dL (6.4-8.2)
[2021-08-20 04:30] LABS: Basophils # (auto) 0.1 10 ^3/uL (0-0.2); Basophils % (auto) 1.3 % (0.0-2.0); Eosinophils # (auto) 0.2 10 ^3/uL (0-0.8); Eosinophils % (auto) 3.4 % (0.0-7.0); Hematocrit 24.3 % (41.0-53.0); Hemoglobin 8.4 g/dL (13.5-17.5); Lymphocytes # (auto) 0.7 10 ^3/uL (0.4-5.4); Lymphocytes % (auto) 13.9 % (10.0-50.0); Mean Corpuscular Hemoglobin 30.6 pg (28.0-32.0); Mean Corpuscular Hgb Conc. 34.7 g/dL (32.0-36.0); Mean Corpuscular Volume 88.3 fL (80.0-100.0); Monocytes # (auto) 0.5 10 ^3/uL (0-1.3); Monocytes % (auto) 10.1 % (0.0-12.0); Neutrophils # (auto) 3.4 10 ^3/uL (1.6-8.6); Neutrophils % (auto) 71.3 % (37.0-80.0); Red Blood Cells 2.75 10^6/uL (4.5-5.90); Red Cell Distribution Width 15.9 % (11.8-14.3); White Blood Cell 4.7 10^3/uL (4.4-10.8)
[2021-08-20] MEDS: metroNIDAZOLE 500MG/100ML 100 ML IV SCH ×3 (05:25→22:00)
[2021-08-20] MEDS: InsuLIN REG 1unit/0.01ml Soln (100units/ml) SC SCH ×3 (05:47→18:18)
[2021-08-20] MEDS: ACCU-CHEK COMFORT CURVE STRIP VI SCH ×3 (05:48→18:18)
[2021-08-20] MEDS: SODIUM BICARBONATE 50ML VIAL 50 ML in D5W/SOD CHL 0.45% 1,000 ML IV SCH (06:02)
[2021-08-20] MEDS: FAMOTIDINE (10MG/ML) 2ML VL IV SCH ×2 (09:37→22:00)
[2021-08-20] MEDS: SODIUM CHLOR 0.9% PF (SALINE LOCK) 10ML VIAL/SYR IV SCH ×2 (09:37→22:00)
[2021-08-20] MEDS: ASPirin 81 mg TAB PO SCH (09:38)
[2021-08-20] MEDS: HEPARIN SODIUM (PORCINE) 5000 UNITS/ML 1ML VIAL SC SCH ×2 (09:39→22:17)
[2021-08-20] MEDS: MAGNESIUM SULFATE 1GM/100ML 100 ML IV SCH ×2 (10:00→11:00)
[2021-08-20] MEDS: SODIUM CHLORIDE 0.9% 1,000 ML IV SCH ×2 (11:00→19:03)
[2021-08-20] MEDS: hydrALAZINE HCL 20 MG/ML VL IV PRN (11:43)
[2021-08-20] MEDS ORDERED: POTASSIUM PHOSPHATE 22 MEQ in SODIUM CHL 0.9% 100 ML IV ONE (12:00)
[2021-08-20] MEDS: EPINEPHrine HCL 250 ML IV SCH (17:00)
[2021-08-20] MEDS: NOREPINEPHRINE 8 MG/250ML KIT 250 ML IV SCH (17:00)
[2021-08-20] MEDS ORDERED: TPN PER PHARMACY IV NR ×8 (20:00)
[2021-08-20] MEDS: cefTRIAXone 1GM/50ML D5W 50 ML IV SCH (21:00)
[2021-08-21] VITALS (27 sets, daily range): BP systolic 104–188; BP diastolic 55–99
[2021-08-21] MEDS: LABETALOL HCL 5 MG/ML ML 20ML VIAL IV PRN ×2 (03:13→08:53)
[2021-08-21 03:26] LABS: Albumin 1.5 g/dL (3.4-5.0); Calcium 7.6 mg/dL (8.5-10.1); Magnesium 1.6 mg/dL (1.6-2.6); Potassium 3.6 mmol/L (3.5-5.1)
[2021-08-21 03:28] LABS: BUN/Creatinine Ratio 13.1
[2021-08-21 03:30] LABS: Hematocrit 25.5 % (41.0-53.0); Hemoglobin 8.4 g/dL (13.5-17.5); Mean Corpuscular Hemoglobin 28.6 pg (28.0-32.0); Mean Corpuscular Hgb Conc. 32.8 g/dL (32.0-36.0); Mean Corpuscular Volume 87.3 fL (80.0-100.0); Red Blood Cells 2.92 10^6/uL (4.5-5.90); Red Cell Distribution Width 15.9 % (11.8-14.3); White Blood Cell 4.8 10^3/uL (4.4-10.8)
[2021-08-21 03:31] LABS: Bilirubin, Total 0.2 mg/dL (0.2-1.0); Phosphorus 2.4 mg/dL (2.5-4.90); Total Protein 4.5 g/dL (6.4-8.2)
[2021-08-21 03:41] LABS: Basophils % (manual) 0 (0.0-2.0); Blast Cells 0; Metamyelocytes % 0; Promyelocytes % 0; Reactive Lymphocytes 0
[2021-08-21] MEDS: hydrALAZINE HCL 20 MG/ML VL IV PRN ×2 (03:55→15:05)
[2021-08-21 04:29] LABS: Band Neutrophils % (manual) 5; Eosinophils % (manual) 4 (0-7); Lymphocytes % (manual) 15 (10.0-50.0); Monocytes % (manual) 5 (0-12); Myelocytes % 1
[2021-08-21] MEDS: InsuLIN REG 1unit/0.01ml Soln (100units/ml) SC SCH ×5 (06:19→18:00)
[2021-08-21] MEDS: ACCU-CHEK COMFORT CURVE STRIP VI SCH ×5 (06:20→17:58)
[2021-08-21] MEDS: metroNIDAZOLE 500MG/100ML 100 ML IV SCH ×3 (06:27→22:14)
[2021-08-21] MEDS: SODIUM CHLORIDE 0.9% 1,000 ML IV SCH ×2 (07:00→12:46)
[2021-08-21] MEDS: ASPirin 81 mg TAB PO SCH (09:54)
[2021-08-21] MEDS: SODIUM CHLOR 0.9% PF (SALINE LOCK) 10ML VIAL/SYR IV SCH ×2 (09:54→22:15)
[2021-08-21] MEDS: HEPARIN SODIUM (PORCINE) 5000 UNITS/ML 1ML VIAL SC SCH ×2 (10:00→22:15)
[2021-08-21] MEDS: FAMOTIDINE (10MG/ML) 2ML VL IV SCH ×2 (10:00→22:15)
[2021-08-21] MEDS: DOXYCYCLINE 100MG/250ML 250 ML IV SCH ×2 (11:15→23:55)
[2021-08-21] MEDS ORDERED: LORazepam 2MG/ML-1ML VIAL IV PRN (12:15)
[2021-08-21] MEDS ORDERED: LABETALOL HCL 5 MG/ML ML 20ML VIAL IV PRN (12:45)
[2021-08-21] MEDS ORDERED: POTASSIUM PHOSP 22MEQ(15MMOLE) in NS 100 ML IV ONE (12:45)
[2021-08-21] MEDS: MAGNESIUM SULFATE 1GM/100ML 100 ML IV SCH ×2 (13:00→14:00)
[2021-08-21] MEDS: NOREPINEPHRINE 8 MG/250ML KIT 250 ML IV SCH (17:00)
[2021-08-21] MEDS: MIDAZOLAM DRIP 50 mg/50mL 50 ML IV SCH (17:00)
[2021-08-21] MEDS: EPINEPHrine HCL 250 ML IV SCH (17:00)
[2021-08-21] MEDS ORDERED: TPN PER PHARMACY IV NR ×7 (20:00)
[2021-08-21] MEDS: cefTRIAXone 1GM/50ML D5W 50 ML IV SCH (20:17)
[2021-08-21] MEDS: PROPOFOL 100 ML IV SCH (22:01)
[2021-08-22] VITALS (68 sets, daily range): BP systolic 98–213; BP diastolic 48–121
[2021-08-22] MEDS: InsuLIN REG 1unit/0.01ml Soln (100units/ml) SC SCH ×4 (00:29→18:00)
[2021-08-22] MEDS: PROPOFOL 100 ML IV SCH ×3 (04:40→19:33)
[2021-08-22] MEDS: metroNIDAZOLE 500MG/100ML 100 ML IV SCH (05:25)
[2021-08-22] MEDS: ACCU-CHEK COMFORT CURVE STRIP VI SCH ×3 (05:52→18:00)
[2021-08-22 05:53] LABS: Basophils # (auto) 0 10 ^3/uL (0-0.2); Eosinophils # (auto) 0.1 10 ^3/uL (0-0.8); Nucleated Red Blood Cells % 0.1 %
[2021-08-22 05:57] LABS: Basophils % (auto) 0.5 % (0.0-2.0); Eosinophils % (auto) 1.6 % (0.0-7.0); Hematocrit 23.8 % (41.0-53.0); Hemoglobin 8.5 g/dL (13.5-17.5); Lymphocytes # (auto) 0.9 10 ^3/uL (0.4-5.4); Lymphocytes % (auto) 11.1 % (10.0-50.0); Mean Corpuscular Hemoglobin 32.1 pg (28.0-32.0); Mean Corpuscular Hgb Conc. 35.9 g/dL (32.0-36.0); Mean Corpuscular Volume 89.6 fL (80.0-100.0); Monocytes # (auto) 0.7 10 ^3/uL (0-1.3); Monocytes % (auto) 7.8 % (0.0-12.0); Neutrophils # (auto) 6.7 10 ^3/uL (1.6-8.6); Red Blood Cells 2.66 10^6/uL (4.5-5.90); Red Cell Distribution Width 15.7 % (11.8-14.3); White Blood Cell 8.4 10^3/uL (4.4-10.8)
[2021-08-22 06:24] LABS: Pre Albumin 10.2 mg/dL (20.0-40.0)
[2021-08-22 06:47] LABS: Albumin 1.6 g/dL (3.4-5.0); Calcium 7.7 mg/dL (8.5-10.1); Magnesium 1.8 mg/dL (1.6-2.6); Potassium 3.9 mmol/L (3.5-5.1)
[2021-08-22] MEDS: hydrALAZINE HCL 20 MG/ML VL IV PRN (06:49)
[2021-08-22 06:51] LABS: BUN/Creatinine Ratio 16.5; Bilirubin, Total 0.2 mg/dL (0.2-1.0); Phosphorus 3.6 mg/dL (2.5-4.90); Total Protein 4.5 g/dL (6.4-8.2)
[2021-08-22] MEDS: SODIUM CHLOR 0.9% PF (SALINE LOCK) 10ML VIAL/SYR IV SCH ×2 (10:00→21:45)
[2021-08-22] MEDS: ASPirin 81 mg TAB PO SCH (10:31)
[2021-08-22] MEDS: FAMOTIDINE (10MG/ML) 2ML VL IV SCH ×2 (10:31→21:45)
[2021-08-22] MEDS: HEPARIN SODIUM (PORCINE) 5000 UNITS/ML 1ML VIAL SC SCH ×2 (10:32→21:46)
[2021-08-22] MEDS: DOXYCYCLINE 100MG/250ML 250 ML IV SCH (10:35)
[2021-08-22] MEDS: VANCOMYCIN HCL 125MG/5ML ORAL SOL GT SCH ×3 (13:19→21:45)
[2021-08-22] MEDS: fentaNYL Drip 2500mCg/250mlNS 250 ML IV SCH ×2 (14:22→17:00)
[2021-08-22] MEDS: ACETYLCYSTEINE 20%(200MG/ML) SOL 4ML NEB PRN (14:51)
[2021-08-22] MEDS: ALBUTEROL SULF 2.5 MG/0.5ML(0.5%) NEB SOLN NEB PRN (15:36)
[2021-08-22] MEDS ORDERED: QUEtiapine FUMARATE 25 MG TAB PO ONE (16:15)
[2021-08-22] MEDS: EPINEPHrine HCL 250 ML IV SCH (17:00)
[2021-08-22] MEDS: NOREPINEPHRINE 8 MG/250ML KIT 250 ML IV SCH (17:00)
[2021-08-22] MEDS: MIDAZOLAM DRIP 50 mg/50mL 50 ML IV SCH (17:00)
[2021-08-22] MEDS ORDERED: TPN PER PHARMACY IV NR ×9 (20:00)
[2021-08-22] MEDS: QUEtiapine FUMARATE 25 MG TAB PO SCH (21:45)
[2021-08-22] MEDS: cefTRIAXone 1GM/50ML D5W 50 ML IV SCH (21:45)
[2021-08-23] VITALS (71 sets, daily range): BP systolic 103–203; BP diastolic 51–84
[2021-08-23] MEDS: InsuLIN REG 1unit/0.01ml Soln (100units/ml) SC SCH ×3 (00:44→11:48)
[2021-08-23] MEDS: PROPOFOL 100 ML IV SCH (02:58)
[2021-08-23] MEDS: fentaNYL Drip 2500mCg/250mlNS 250 ML IV SCH ×2 (02:59→17:00)
[2021-08-23] MEDS: VANCOMYCIN HCL 125MG/5ML ORAL SOL GT SCH ×4 (05:45→21:57)
[2021-08-23] MEDS: ACCU-CHEK COMFORT CURVE STRIP VI SCH ×4 (06:00→17:59)
[2021-08-23 06:13] LABS: Hemoglobin 8.3 g/dL (13.5-17.5); Lymphocytes # (auto) 1.1 10 ^3/uL (0.4-5.4); Mean Corpuscular Hemoglobin 31.7 pg (28.0-32.0); Monocytes % (auto) 7.2 % (0.0-12.0); Red Blood Cells 2.62 10^6/uL (4.5-5.90)
[2021-08-23 06:16] LABS: Basophils # (auto) 0 10 ^3/uL (0-0.2); Basophils % (auto) 0.6 % (0.0-2.0); Eosinophils # (auto) 0.3 10 ^3/uL (0-0.8); Eosinophils % (auto) 3.6 % (0.0-7.0); Hematocrit 23.9 % (41.0-53.0); Lymphocytes % (auto) 14.8 % (10.0-50.0); Mean Corpuscular Hgb Conc. 34.8 g/dL (32.0-36.0); Monocytes # (auto) 0.5 10 ^3/uL (0-1.3); Neutrophils # (auto) 5.6 10 ^3/uL (1.6-8.6); Neutrophils % (auto) 73.8 % (37.0-80.0); Nucleated Red Blood Cells % 0.1 %; Potassium 3.9 mmol/L (3.5-5.1); Red Cell Distribution Width 15.9 % (11.8-14.3); White Blood Cell 7.6 10^3/uL (4.4-10.8)
[2021-08-23 06:28] LABS: Albumin 1.7 g/dL (3.4-5.0); BUN/Creatinine Ratio 20.1; Bilirubin, Total 0.2 mg/dL (0.2-1.0); Magnesium 2.3 mg/dL (1.6-2.6); Phosphorus 3.4 mg/dL (2.5-4.90); Total Protein 4.7 g/dL (6.4-8.2)
[2021-08-23] MEDS: QUEtiapine FUMARATE 25 MG TAB PO SCH ×2 (09:34→21:57)
[2021-08-23] MEDS: FAMOTIDINE (10MG/ML) 2ML VL IV SCH ×2 (09:34→21:57)
[2021-08-23] MEDS: SODIUM CHLOR 0.9% PF (SALINE LOCK) 10ML VIAL/SYR IV SCH ×2 (09:34→21:57)
[2021-08-23] MEDS: ASPirin 81 mg TAB PO SCH (09:34)
[2021-08-23] MEDS: HEPARIN SODIUM (PORCINE) 5000 UNITS/ML 1ML VIAL SC SCH ×2 (09:36→21:57)
[2021-08-23] MEDS: EPINEPHrine HCL 250 ML IV SCH (17:00)
[2021-08-23] MEDS: NOREPINEPHRINE 8 MG/250ML KIT 250 ML IV SCH (17:00)
[2021-08-23] MEDS: MIDAZOLAM DRIP 50 mg/50mL 50 ML IV SCH (17:00)
[2021-08-23] MEDS: ALBUTEROL SULF 2.5 MG/0.5ML(0.5%) NEB SOLN NEB PRN ×2 (19:44→22:07)
[2021-08-23] MEDS: ACETYLCYSTEINE 20%(200MG/ML) SOL 4ML NEB PRN ×2 (19:45→22:08)
[2021-08-23] MEDS ORDERED: TPN PER PHARMACY IV NR ×9 (20:00)
[2021-08-23] MEDS: cefTRIAXone 1GM/50ML D5W 50 ML IV SCH (21:00)
[2021-08-24] VITALS (92 sets, daily range): BP systolic 107–161; BP diastolic 36–71
[2021-08-24 05:31] LABS: Basophils # (auto) 0.1 10 ^3/uL (0-0.2); Eosinophils # (auto) 0.4 10 ^3/uL (0-0.8); Hemoglobin 8.1 g/dL (13.5-17.5); Lymphocytes # (auto) 1.1 10 ^3/uL (0.4-5.4); Lymphocytes % (auto) 13.7 % (10.0-50.0); Mean Corpuscular Hgb Conc. 35.2 g/dL (32.0-36.0); Monocytes # (auto) 0.4 10 ^3/uL (0-1.3); Nucleated Red Blood Cells % 0.1 %
[2021-08-24 05:36] LABS: Basophils % (auto) 1.1 % (0.0-2.0); Eosinophils % (auto) 4.7 % (0.0-7.0); Hematocrit 22.9 % (41.0-53.0); Mean Corpuscular Hemoglobin 32.2 pg (28.0-32.0); Mean Corpuscular Volume 91.3 fL (80.0-100.0); Monocytes % (auto) 4.6 % (0.0-12.0); Neutrophils % (auto) 75.9 % (37.0-80.0); Red Blood Cells 2.51 10^6/uL (4.5-5.90); White Blood Cell 7.9 10^3/uL (4.4-10.8)
[2021-08-24] MEDS: VANCOMYCIN HCL 125MG/5ML ORAL SOL GT SCH ×4 (05:50→21:33)
[2021-08-24] MEDS: InsuLIN REG 1unit/0.01ml Soln (100units/ml) SC SCH ×4 (05:50→18:29)
[2021-08-24] MEDS: ACCU-CHEK COMFORT CURVE STRIP VI SCH ×4 (05:51→18:20)
[2021-08-24 06:04] LABS: Potassium 3.8 mmol/L (3.5-5.1)
[2021-08-24 06:09] LABS: Albumin 1.5 g/dL (3.4-5.0); BUN/Creatinine Ratio 19.7; Bilirubin, Total 0.2 mg/dL (0.2-1.0); Magnesium 1.8 mg/dL (1.6-2.6); Phosphorus 2.4 mg/dL (2.5-4.90); Total Protein 4.5 g/dL (6.4-8.2)
[2021-08-24] MEDS: ALBUTEROL SULF 2.5 MG/0.5ML(0.5%) NEB SOLN NEB PRN ×3 (06:09→22:42)
[2021-08-24] MEDS: ACETYLCYSTEINE 20%(200MG/ML) SOL 4ML NEB PRN ×3 (06:10→22:42)
[2021-08-24] MEDS ORDERED: FUROSEMIDE 40 MG/4 ML VIAL IV SCH (10:00)
[2021-08-24] MEDS ORDERED: LOSARTAN POTASSIUM 50 MG TAB GT ONE (10:15)
[2021-08-24] MEDS: ASPirin 81 mg TAB PO SCH (10:40)
[2021-08-24] MEDS: QUEtiapine FUMARATE 25 MG TAB PO SCH ×2 (10:40→21:33)
[2021-08-24] MEDS: FAMOTIDINE (10MG/ML) 2ML VL IV SCH ×2 (10:41→21:33)
[2021-08-24] MEDS: SODIUM CHLOR 0.9% PF (SALINE LOCK) 10ML VIAL/SYR IV SCH ×2 (10:41→21:33)
[2021-08-24] MEDS: HEPARIN SODIUM (PORCINE) 5000 UNITS/ML 1ML VIAL SC SCH ×2 (11:11→21:33)
[2021-08-24] MEDS ORDERED: SODIUM PHOSPHATES 20 MEQ in SODIUM CHL 0.9% 100 ML IV ONE (11:15)
[2021-08-24] MEDS: PROPOFOL 100 ML IV SCH (11:45)
[2021-08-24] MEDS: EPINEPHrine HCL 250 ML IV SCH (17:00)
[2021-08-24] MEDS: NOREPINEPHRINE 8 MG/250ML KIT 250 ML IV SCH (17:00)
[2021-08-24] MEDS: fentaNYL Drip 2500mCg/250mlNS 250 ML IV SCH (17:00)
[2021-08-24] MEDS: MIDAZOLAM DRIP 50 mg/50mL 50 ML IV SCH (17:00)
[2021-08-24] MEDS: FUROSEMIDE 40 MG/4 ML VIAL IV SCH (17:37)
[2021-08-24] MEDS ORDERED: TPN PER PHARMACY IV NR ×11 (20:00)
[2021-08-24] MEDS: cefTRIAXone 1GM/50ML D5W 50 ML IV SCH (21:00)
[2021-08-25] VITALS (105 sets, daily range): BP systolic 116–184; BP diastolic 54–78
[2021-08-25] MEDS: FUROSEMIDE 40 MG/4 ML VIAL IV SCH ×2 (06:00→17:29)
[2021-08-25] MEDS: ACCU-CHEK COMFORT CURVE STRIP VI SCH ×4 (06:00→17:30)
[2021-08-25] MEDS: InsuLIN REG 1unit/0.01ml Soln (100units/ml) SC SCH ×4 (06:00→17:30)
[2021-08-25] MEDS: VANCOMYCIN HCL 125MG/5ML ORAL SOL GT SCH ×4 (06:00→21:40)
[2021-08-25 07:13] LABS: Basophils # (auto) 0.1 10 ^3/uL (0-0.2); Eosinophils # (auto) 0.2 10 ^3/uL (0-0.8); Eosinophils % (auto) 3.3 % (0.0-7.0); Hematocrit 23.4 % (41.0-53.0); Lymphocytes # (auto) 0.9 10 ^3/uL (0.4-5.4); Mean Corpuscular Hemoglobin 29.6 pg (28.0-32.0); Mean Corpuscular Hgb Conc. 34.3 g/dL (32.0-36.0); Mean Corpuscular Volume 86.2 fL (80.0-100.0); Monocytes # (auto) 0.5 10 ^3/uL (0-1.3); Monocytes % (auto) 6.9 % (0.0-12.0); Neutrophils # (auto) 5.3 10 ^3/uL (1.6-8.6); Neutrophils % (auto) 75.8 % (37.0-80.0); Red Blood Cells 2.71 10^6/uL (4.5-5.90); Red Cell Distribution Width 15.7 % (11.8-14.3)
[2021-08-25 07:48] LABS: Blood Urea Nitrogen 34 mg/dL (7-18)
[2021-08-25 07:53] LABS: Total Protein 4.6 g/dL (6.4-8.2)
[2021-08-25 08:07] LABS: Alanine Aminotransferase 19 U/L (16-61); Albumin 1.4 g/dL (3.4-5.0); Alkaline Phosphatase 113 U/L (45-117); Anion Gap 4 (5-15); Aspartate Aminotransferase 35 U/L (15-37); BUN/Creatinine Ratio 21.9; Bilirubin, Total 0.1 mg/dL (0.2-1.0); Calcium 7.5 mg/dL (8.5-10.1); Carbon Dioxide 26 mmol/L (21-32); Chloride 107 mmol/L (98-107); GFR African American 62 mL/min; GFR Non-African American 51 mL/min; Glucose 197 mg/dL (74-106); Magnesium 2.2 mg/dL (1.6-2.6); Phosphorus 3.5 mg/dL (2.5-4.90); Potassium 4.2 mmol/L (3.5-5.1); Sodium 137 mmol/L (136-145)
[2021-08-25] MEDS: FAMOTIDINE (10MG/ML) 2ML VL IV SCH ×2 (09:23→21:40)
[2021-08-25] MEDS: QUEtiapine FUMARATE 25 MG TAB PO SCH ×2 (09:23→21:41)
[2021-08-25] MEDS: ASPirin 81 mg TAB PO SCH (09:23)
[2021-08-25] MEDS: HEPARIN SODIUM (PORCINE) 5000 UNITS/ML 1ML VIAL SC SCH ×2 (09:23→21:41)
[2021-08-25] MEDS: SODIUM CHLOR 0.9% PF (SALINE LOCK) 10ML VIAL/SYR IV SCH ×2 (09:23→21:41)
[2021-08-25] MEDS: hydrALAZINE HCL 25 MG TAB PO SCH ×2 (11:36→17:30)
[2021-08-25] MEDS: PROPOFOL 100 ML IV SCH (11:42)
[2021-08-25] MEDS: LABETALOL HCL 5 MG/ML ML 20ML VIAL IV PRN ×3 (15:19→20:23)
[2021-08-25] MEDS: NOREPINEPHRINE 8 MG/250ML KIT 250 ML IV SCH (17:00)
[2021-08-25] MEDS: MIDAZOLAM DRIP 50 mg/50mL 50 ML IV SCH (17:00)
[2021-08-25] MEDS: fentaNYL Drip 2500mCg/250mlNS 250 ML IV SCH (17:00)
[2021-08-25] MEDS: EPINEPHrine HCL 250 ML IV SCH (17:00)
[2021-08-25] MEDS: ACETYLCYSTEINE 20%(200MG/ML) SOL 4ML NEB PRN ×2 (19:50→22:31)
[2021-08-25] MEDS: ALBUTEROL SULF 2.5 MG/0.5ML(0.5%) NEB SOLN NEB PRN ×2 (19:50→22:32)
[2021-08-25] MEDS ORDERED: TPN PER PHARMACY IV NR ×8 (20:00)
[2021-08-25] MEDS: cefTRIAXone 1GM/50ML D5W 50 ML IV SCH (21:00)
[2021-08-26] VITALS (103 sets, daily range): BP systolic 126–170; BP diastolic 59–86
[2021-08-26 05:27] LABS: Basophils # (auto) 0.1 10 ^3/uL (0-0.2); Basophils % (auto) 0.7 % (0.0-2.0); Eosinophils # (auto) 0.1 10 ^3/uL (0-0.8); Eosinophils % (auto) 1.4 % (0.0-7.0); Hematocrit 26.8 % (41.0-53.0); Hemoglobin 9.4 g/dL (13.5-17.5); Lymphocytes # (auto) 0.8 10 ^3/uL (0.4-5.4); Lymphocytes % (auto) 9.5 % (10.0-50.0); Mean Corpuscular Hemoglobin 30.6 pg (28.0-32.0); Mean Corpuscular Hgb Conc. 34.9 g/dL (32.0-36.0); Mean Corpuscular Volume 87.6 fL (80.0-100.0); Monocytes # (auto) 0.5 10 ^3/uL (0-1.3); Monocytes % (auto) 5.1 % (0.0-12.0); Neutrophils # (auto) 7.4 10 ^3/uL (1.6-8.6); Neutrophils % (auto) 83.3 % (37.0-80.0); Nucleated Red Blood Cells % 0.2 %; Red Blood Cells 3.06 10^6/uL (4.5-5.90); Red Cell Distribution Width 15.6 % (11.8-14.3); White Blood Cell 8.8 10^3/uL (4.4-10.8)
[2021-08-26 05:40] LABS: Albumin 1.7 g/dL (3.4-5.0); Calcium 7.9 mg/dL (8.5-10.1); Magnesium 1.9 mg/dL (1.6-2.6)
[2021-08-26 05:47] LABS: Bilirubin, Total 0.1 mg/dL (0.2-1.0); Total Protein 5.7 g/dL (6.4-8.2)
[2021-08-26] MEDS: hydrALAZINE HCL 25 MG TAB PO SCH ×4 (06:00→19:06)
[2021-08-26] MEDS: VANCOMYCIN HCL 125MG/5ML ORAL SOL GT SCH ×4 (06:00→21:51)
[2021-08-26] MEDS: FUROSEMIDE 40 MG/4 ML VIAL IV SCH ×2 (06:00→19:06)
[2021-08-26] MEDS: InsuLIN REG 1unit/0.01ml Soln (100units/ml) SC SCH ×4 (06:00→18:00)
[2021-08-26] MEDS: ACCU-CHEK COMFORT CURVE STRIP VI SCH ×4 (06:00→18:00)
[2021-08-26] MEDS: ACETYLCYSTEINE 20%(200MG/ML) SOL 4ML NEB PRN (06:38)
[2021-08-26] MEDS: ALBUTEROL SULF 2.5 MG/0.5ML(0.5%) NEB SOLN NEB PRN (06:38)
[2021-08-26] MEDS: ASPirin 81 mg TAB PO SCH (10:00)
[2021-08-26] MEDS: HEPARIN SODIUM (PORCINE) 5000 UNITS/ML 1ML VIAL SC SCH ×2 (10:37→22:00)
[2021-08-26] MEDS: SODIUM CHLOR 0.9% PF (SALINE LOCK) 10ML VIAL/SYR IV SCH ×2 (10:37→21:13)
[2021-08-26] MEDS: FAMOTIDINE (10MG/ML) 2ML VL IV SCH ×2 (10:37→21:51)
[2021-08-26] MEDS: QUEtiapine FUMARATE 25 MG TAB PO SCH ×2 (10:38→21:13)
[2021-08-26] MEDS: PROPOFOL 100 ML IV SCH ×2 (11:45→22:00)
[2021-08-26] MEDS ORDERED: traZODone HCL 50 MG TAB PO PRN (16:45)
[2021-08-26] MEDS: EPINEPHrine HCL 250 ML IV SCH (17:00)
[2021-08-26] MEDS: MIDAZOLAM DRIP 50 mg/50mL 50 ML IV SCH (17:00)
[2021-08-26] MEDS: NOREPINEPHRINE 8 MG/250ML KIT 250 ML IV SCH (17:00)
[2021-08-26] MEDS: niCARdipine 50 MG in SODIUM CHL 0.9% 230 ML IV SCH ×2 (19:01→23:00)
[2021-08-26] MEDS ORDERED: TPN PER PHARMACY IV NR ×9 (20:00)
[2021-08-26] MEDS: cefTRIAXone 1GM/50ML D5W 50 ML IV SCH (21:00)
[2021-08-26] MEDS ORDERED: cefTRIAXone 1GM/50ML D5W 50 ML IV ONE (21:18)
[2021-08-27] VITALS (102 sets, daily range): BP systolic 97–160; BP diastolic 47–78
[2021-08-27] MEDS: niCARdipine 50 MG in SODIUM CHL 0.9% 230 ML IV SCH ×3 (04:00→13:21)
[2021-08-27] MEDS: PROPOFOL 100 ML IV SCH ×2 (04:18→20:00)
[2021-08-27 05:19] LABS: Basophils # (auto) 0.2 10 ^3/uL (0-0.2); Basophils % (auto) 2.7 % (0.0-2.0); Eosinophils # (auto) 0.1 10 ^3/uL (0-0.8); Eosinophils % (auto) 1.1 % (0.0-7.0); Hematocrit 25.9 % (41.0-53.0); Hemoglobin 8.9 g/dL (13.5-17.5); Lymphocytes # (auto) 0.8 10 ^3/uL (0.4-5.4); Lymphocytes % (auto) 8.5 % (10.0-50.0); Mean Corpuscular Hemoglobin 30.6 pg (28.0-32.0); Mean Corpuscular Hgb Conc. 34.4 g/dL (32.0-36.0); Monocytes # (auto) 0.5 10 ^3/uL (0-1.3); Monocytes % (auto) 5.6 % (0.0-12.0); Neutrophils # (auto) 7.5 10 ^3/uL (1.6-8.6); Neutrophils % (auto) 82.1 % (37.0-80.0); Nucleated Red Blood Cells % 0.1 %; Red Blood Cells 2.91 10^6/uL (4.5-5.90); Red Cell Distribution Width 15.6 % (11.8-14.3); White Blood Cell 9.2 10^3/uL (4.4-10.8)
[2021-08-27 05:34] LABS: INR 1.05 (0.9-1.15); Partial Thromboplastin Time 31.2 sec (23.6-33.0)
[2021-08-27 05:37] LABS: Albumin 1.7 g/dL (3.4-5.0); BUN/Creatinine Ratio 25.5; Calcium 7.8 mg/dL (8.5-10.1); Magnesium 1.8 mg/dL (1.6-2.6)
[2021-08-27 05:40] LABS: Bilirubin, Total 0.1 mg/dL (0.2-1.0); Phosphorus 3.1 mg/dL (2.5-4.90); Total Protein 5.5 g/dL (6.4-8.2)
[2021-08-27] MEDS: InsuLIN REG 1unit/0.01ml Soln (100units/ml) SC SCH ×4 (06:00→17:38)
[2021-08-27] MEDS: ACCU-CHEK COMFORT CURVE STRIP VI SCH ×4 (06:23→17:38)
[2021-08-27] MEDS: FUROSEMIDE 40 MG/4 ML VIAL IV SCH ×2 (06:24→17:46)
[2021-08-27] MEDS: hydrALAZINE HCL 25 MG TAB PO SCH ×4 (06:24→17:47)
[2021-08-27] MEDS: VANCOMYCIN HCL 125MG/5ML ORAL SOL GT SCH ×4 (06:24→21:51)
[2021-08-27] MEDS: ALBUTEROL SULF 2.5 MG/0.5ML(0.5%) NEB SOLN NEB PRN (07:01)
[2021-08-27] MEDS: ACETYLCYSTEINE 20%(200MG/ML) SOL 4ML NEB PRN (07:02)
[2021-08-27] MEDS: SODIUM CHLOR 0.9% PF (SALINE LOCK) 10ML VIAL/SYR IV SCH ×2 (10:00→21:51)
[2021-08-27] MEDS: QUEtiapine FUMARATE 25 MG TAB PO SCH ×2 (10:53→21:51)
[2021-08-27] MEDS: FAMOTIDINE (10MG/ML) 2ML VL IV SCH ×2 (10:53→21:51)
[2021-08-27] MEDS: HEPARIN SODIUM (PORCINE) 5000 UNITS/ML 1ML VIAL SC SCH ×2 (10:54→21:52)
[2021-08-27] MEDS: ASPirin 81 mg TAB PO SCH (10:55)
[2021-08-27] MEDS: NOREPINEPHRINE 8 MG/250ML KIT 250 ML IV SCH (17:00)
[2021-08-27] MEDS: MIDAZOLAM DRIP 50 mg/50mL 50 ML IV SCH (17:00)
[2021-08-27] MEDS: TPN PER PHARMACY IV NR ×8 (20:00)
[2021-08-27] MEDS: cefTRIAXone 1GM/50ML D5W 50 ML IV SCH (21:00)
[2021-08-28] VITALS (101 sets, daily range): BP systolic 102–168; BP diastolic 54–81
[2021-08-28] MEDS: ACCU-CHEK COMFORT CURVE STRIP VI SCH ×5 (00:04→23:31)
[2021-08-28] MEDS: InsuLIN REG 1unit/0.01ml Soln (100units/ml) SC SCH ×5 (00:05→23:32)
[2021-08-28] MEDS: hydrALAZINE HCL 25 MG TAB PO SCH ×5 (00:05→23:31)
[2021-08-28] MEDS: PROPOFOL 100 ML IV SCH ×4 (01:10→22:09)
[2021-08-28 05:22] LABS: Albumin 1.6 g/dL (3.4-5.0); Calcium 7.8 mg/dL (8.5-10.1); Magnesium 2.2 mg/dL (1.6-2.6); Potassium 3.8 mmol/L (3.5-5.1)
[2021-08-28 05:26] LABS: Bilirubin, Total 0.1 mg/dL (0.2-1.0); Phosphorus 3.2 mg/dL (2.5-4.90); Total Protein 5.5 g/dL (6.4-8.2)
[2021-08-28 05:27] LABS: Hematocrit 25.1 % (41.0-53.0); Hemoglobin 8.6 g/dL (13.5-17.5); Mean Corpuscular Hemoglobin 31.1 pg (28.0-32.0); Mean Corpuscular Hgb Conc. 34.4 g/dL (32.0-36.0); Mean Corpuscular Volume 90.5 fL (80.0-100.0); Red Blood Cells 2.78 10^6/uL (4.5-5.90); Red Cell Distribution Width 15.8 % (11.8-14.3); White Blood Cell 6.5 10^3/uL (4.4-10.8)
[2021-08-28 06:01] LABS: BUN/Creatinine Ratio 25.7
[2021-08-28] MEDS: VANCOMYCIN HCL 125MG/5ML ORAL SOL GT SCH ×4 (06:11→22:08)
[2021-08-28] MEDS: FUROSEMIDE 40 MG/4 ML VIAL IV SCH ×2 (06:11→17:54)
[2021-08-28 06:13] LABS: Basophils % (manual) 0 (0.0-2.0); Blast Cells 0; Eosinophils % (manual) 0 (0-7); Metamyelocytes % 0; Promyelocytes % 0; Reactive Lymphocytes 0
[2021-08-28] MEDS: EPINEPHrine HCL 250 ML IV SCH ×2 (07:21→11:56)
[2021-08-28] MEDS: niCARdipine 50 MG in SODIUM CHL 0.9% 230 ML IV SCH ×5 (07:36→22:09)
[2021-08-28] MEDS: SODIUM CHLOR 0.9% PF (SALINE LOCK) 10ML VIAL/SYR IV SCH ×2 (08:16→22:08)
[2021-08-28] MEDS: FAMOTIDINE (10MG/ML) 2ML VL IV SCH ×2 (09:14→22:08)
[2021-08-28] MEDS: QUEtiapine FUMARATE 25 MG TAB PO SCH ×2 (09:14→22:08)
[2021-08-28] MEDS: ASPirin 81 mg TAB PO SCH (09:14)
[2021-08-28] MEDS: HEPARIN SODIUM (PORCINE) 5000 UNITS/ML 1ML VIAL SC SCH ×2 (09:20→22:12)
[2021-08-28 14:18] LABS: Band Neutrophils % (manual) 2; Lymphocytes % (manual) 21 (10.0-50.0); Monocytes % (manual) 1 (0-12); Myelocytes % 1
[2021-08-28] MEDS: MIDAZOLAM DRIP 50 mg/50mL 50 ML IV SCH (16:56)
[2021-08-28] MEDS: NOREPINEPHRINE 8 MG/250ML KIT 250 ML IV SCH (16:56)
[2021-08-28] MEDS: TPN PER PHARMACY IV NR ×8 (19:50)
[2021-08-28] MEDS ORDERED: TPN PER PHARMACY IV NR ×9 (20:00)
[2021-08-28] MEDS: cefTRIAXone 1GM/50ML D5W 50 ML IV SCH (21:00)
[2021-08-29] VITALS (107 sets, daily range): BP systolic 120–157; BP diastolic 58–92
[2021-08-29] MEDS: niCARdipine 50 MG in SODIUM CHL 0.9% 230 ML IV SCH ×5 (05:00→22:52)
[2021-08-29 05:05] LABS: Basophils # (auto) 0 10 ^3/uL (0-0.2); Basophils % (auto) 0.5 % (0.0-2.0); Eosinophils # (auto) 0.1 10 ^3/uL (0-0.8); Hematocrit 25.6 % (41.0-53.0); Hemoglobin 8.8 g/dL (13.5-17.5); Lymphocytes % (auto) 16.8 % (10.0-50.0); Mean Corpuscular Hemoglobin 30.8 pg (28.0-32.0); Mean Corpuscular Hgb Conc. 34.5 g/dL (32.0-36.0); Mean Corpuscular Volume 89.4 fL (80.0-100.0); Monocytes # (auto) 0.3 10 ^3/uL (0-1.3); Monocytes % (auto) 5.8 % (0.0-12.0); Neutrophils # (auto) 4.5 10 ^3/uL (1.6-8.6); Neutrophils % (auto) 74.9 % (37.0-80.0); Red Blood Cells 2.86 10^6/uL (4.5-5.90); Red Cell Distribution Width 15.6 % (11.8-14.3)
[2021-08-29 05:24] LABS: INR 1.03 (0.9-1.15); Partial Thromboplastin Time 29.9 sec (23.6-33.0)
[2021-08-29] MEDS: VANCOMYCIN HCL 125MG/5ML ORAL SOL GT SCH ×4 (05:47→22:00)
[2021-08-29] MEDS: hydrALAZINE HCL 25 MG TAB PO SCH ×3 (05:48→17:26)
[2021-08-29] MEDS: FUROSEMIDE 40 MG/4 ML VIAL IV SCH ×2 (05:48→17:27)
[2021-08-29] MEDS: InsuLIN REG 1unit/0.01ml Soln (100units/ml) SC SCH ×4 (05:49→23:17)
[2021-08-29] MEDS: ACCU-CHEK COMFORT CURVE STRIP VI SCH ×4 (05:49→23:17)
[2021-08-29] MEDS: PROPOFOL 100 ML IV SCH ×4 (05:51→22:53)
[2021-08-29] MEDS: ALBUTEROL SULF 2.5 MG/0.5ML(0.5%) NEB SOLN NEB PRN (05:53)
[2021-08-29] MEDS: ACETYLCYSTEINE 20%(200MG/ML) SOL 4ML NEB PRN (05:53)
[2021-08-29] MEDS: SODIUM CHLOR 0.9% PF (SALINE LOCK) 10ML VIAL/SYR IV SCH ×2 (09:07→22:00)
[2021-08-29] MEDS: FAMOTIDINE (10MG/ML) 2ML VL IV SCH ×2 (09:18→22:00)
[2021-08-29] MEDS: QUEtiapine FUMARATE 25 MG TAB PO SCH ×2 (09:19→22:00)
[2021-08-29] MEDS: ASPirin 81 mg TAB PO SCH (09:19)
[2021-08-29] MEDS: HEPARIN SODIUM (PORCINE) 5000 UNITS/ML 1ML VIAL SC SCH ×2 (09:19→22:00)
[2021-08-29] MEDS ORDERED: ALBUMIN 25% 100 ML IV ONE (10:30)
[2021-08-29 13:27] LABS: Alanine Aminotransferase 22 U/L (16-61); Albumin 1.8 g/dL (3.4-5.0); Anion Gap 5 (5-15); Blood Urea Nitrogen 36 mg/dL (7-18); Calcium 7.8 mg/dL (8.5-10.1); Carbon Dioxide 31 mmol/L (21-32); Chloride 104 mmol/L (98-107); Glucose 128 mg/dL (74-106); Magnesium 2.4 mg/dL (1.6-2.6); Potassium 3.9 mmol/L (3.5-5.1); Sodium 140 mmol/L (136-145)
[2021-08-29 13:30] LABS: Alkaline Phosphatase 159 U/L (45-117); Aspartate Aminotransferase 33 U/L (15-37); BUN/Creatinine Ratio 24.5; Bilirubin, Total < 0.1 mg/dL (0.2-1.0); GFR African American 66 mL/min; GFR Non-African American 54 mL/min; Phosphorus 3.1 mg/dL (2.5-4.90); Total Protein 5.7 g/dL (6.4-8.2)
[2021-08-29 14:14] LABS: Pre Albumin 22.2 mg/dL (20.0-40.0); Triglycerides 116 mg/dL (< 150)
[2021-08-29] MEDS: MIDAZOLAM DRIP 50 mg/50mL 50 ML IV SCH (17:00)
[2021-08-29] MEDS: NOREPINEPHRINE 8 MG/250ML KIT 250 ML IV SCH (17:00)
[2021-08-29] MEDS: EPINEPHrine HCL 250 ML IV SCH (17:00)
[2021-08-29] MEDS ORDERED: TPN PER PHARMACY IV NR ×5 (20:00)
[2021-08-29] MEDS: cefTRIAXone 1GM/50ML D5W 50 ML IV SCH (20:31)
[2021-08-30] VITALS (105 sets, daily range): BP systolic 129–174; BP diastolic 65–78
[2021-08-30 05:00] LABS: Basophils # (auto) 0.1 10 ^3/uL (0-0.2); Eosinophils # (auto) 0.1 10 ^3/uL (0-0.8); Lymphocytes # (auto) 0.8 10 ^3/uL (0.4-5.4); Monocytes # (auto) 0.4 10 ^3/uL (0-1.3); Neutrophils # (auto) 4.7 10 ^3/uL (1.6-8.6); Red Cell Distribution Width 15.7 % (11.8-14.3)
[2021-08-30 05:01] LABS: Basophils % (auto) 1.8 % (0.0-2.0); Eosinophils % (auto) 1.9 % (0.0-7.0); Hematocrit 23.7 % (41.0-53.0); Hemoglobin 8.2 g/dL (13.5-17.5); Lymphocytes % (auto) 13.8 % (10.0-50.0); Mean Corpuscular Hemoglobin 31.8 pg (28.0-32.0); Mean Corpuscular Hgb Conc. 34.7 g/dL (32.0-36.0); Mean Corpuscular Volume 91.5 fL (80.0-100.0); Monocytes % (auto) 6.3 % (0.0-12.0); Neutrophils % (auto) 76.2 % (37.0-80.0); Red Blood Cells 2.59 10^6/uL (4.5-5.90); White Blood Cell 6.1 10^3/uL (4.4-10.8)
[2021-08-30 05:20] LABS: Potassium 3.7 mmol/L (3.5-5.1)
[2021-08-30 05:24] LABS: Albumin 2.1 g/dL (3.4-5.0); BUN/Creatinine Ratio 24.3; Calcium 7.9 mg/dL (8.5-10.1); Magnesium 2.2 mg/dL (1.6-2.6)
[2021-08-30] MEDS: VANCOMYCIN HCL 125MG/5ML ORAL SOL GT SCH ×4 (05:24→22:00)
[2021-08-30] MEDS: FUROSEMIDE 40 MG/4 ML VIAL IV SCH (05:24)
[2021-08-30] MEDS: ACCU-CHEK COMFORT CURVE STRIP VI SCH ×4 (05:25→23:16)
[2021-08-30] MEDS: hydrALAZINE HCL 25 MG TAB PO SCH ×5 (05:25→23:17)
[2021-08-30] MEDS: InsuLIN REG 1unit/0.01ml Soln (100units/ml) SC SCH ×4 (05:25→23:16)
[2021-08-30 05:27] LABS: Bilirubin, Total 0.1 mg/dL (0.2-1.0); Phosphorus 3.4 mg/dL (2.5-4.90); Total Protein 5.8 g/dL (6.4-8.2)
[2021-08-30] MEDS: FAMOTIDINE (10MG/ML) 2ML VL IV SCH ×2 (09:17→22:00)
[2021-08-30] MEDS: ASPirin 81 mg TAB PO SCH (09:17)
[2021-08-30] MEDS: SODIUM CHLOR 0.9% PF (SALINE LOCK) 10ML VIAL/SYR IV SCH ×2 (09:17→22:00)
[2021-08-30] MEDS: QUEtiapine FUMARATE 25 MG TAB PO SCH ×2 (09:18→22:00)
[2021-08-30] MEDS: HEPARIN SODIUM (PORCINE) 5000 UNITS/ML 1ML VIAL SC SCH ×2 (09:18→22:00)
[2021-08-30] MEDS: niCARdipine 50 MG in SODIUM CHL 0.9% 230 ML IV SCH ×2 (12:37→22:00)
[2021-08-30] MEDS: MIDAZOLAM DRIP 50 mg/50mL 50 ML IV SCH (17:00)
[2021-08-30] MEDS: EPINEPHrine HCL 250 ML IV SCH (17:00)
[2021-08-30] MEDS: NOREPINEPHRINE 8 MG/250ML KIT 250 ML IV SCH (17:00)
[2021-08-30] MEDS: PROPOFOL 100 ML IV SCH (19:44)
[2021-08-30] MEDS ORDERED: TPN PER PHARMACY IV NR ×9 (20:00)
[2021-08-30] MEDS: cefTRIAXone 1GM/50ML D5W 50 ML IV SCH (21:00)
[2021-08-31] VITALS (105 sets, daily range): BP systolic 131–162; BP diastolic 62–79
[2021-08-31] MEDS: PROPOFOL 100 ML IV SCH (01:21)
[2021-08-31 05:08] LABS: Basophils # (auto) 0.1 10 ^3/uL (0-0.2); Eosinophils # (auto) 0.1 10 ^3/uL (0-0.8); Eosinophils % (auto) 2.8 % (0.0-7.0); Hemoglobin 8.2 g/dL (13.5-17.5); Lymphocytes # (auto) 0.8 10 ^3/uL (0.4-5.4); Monocytes # (auto) 0.4 10 ^3/uL (0-1.3)
[2021-08-31 05:12] LABS: Basophils % (auto) 2.3 % (0.0-2.0); Lymphocytes % (auto) 15.4 % (10.0-50.0); Mean Corpuscular Hemoglobin 32.3 pg (28.0-32.0); Mean Corpuscular Hgb Conc. 35.7 g/dL (32.0-36.0); Mean Corpuscular Volume 90.4 fL (80.0-100.0); Monocytes % (auto) 7.3 % (0.0-12.0); Neutrophils # (auto) 3.7 10 ^3/uL (1.6-8.6); Neutrophils % (auto) 72.2 % (37.0-80.0); Nucleated Red Blood Cells % 0.1 %; Red Blood Cells 2.55 10^6/uL (4.5-5.90); Red Cell Distribution Width 15.9 % (11.8-14.3); White Blood Cell 5.1 10^3/uL (4.4-10.8)
[2021-08-31 05:23] LABS: Potassium 3.7 mmol/L (3.5-5.1)
[2021-08-31 05:27] LABS: BUN/Creatinine Ratio 25.7; Calcium 7.8 mg/dL (8.5-10.1)
[2021-08-31 05:30] LABS: Bilirubin, Total 0.1 mg/dL (0.2-1.0); Phosphorus 2.9 mg/dL (2.5-4.90); Total Protein 5.7 g/dL (6.4-8.2)
[2021-08-31] MEDS: ACCU-CHEK COMFORT CURVE STRIP VI SCH ×4 (06:00→23:51)
[2021-08-31] MEDS: InsuLIN REG 1unit/0.01ml Soln (100units/ml) SC SCH ×3 (06:00→17:52)
[2021-08-31] MEDS: hydrALAZINE HCL 25 MG TAB PO SCH ×4 (06:00→23:51)
[2021-08-31] MEDS: VANCOMYCIN HCL 125MG/5ML ORAL SOL GT SCH ×4 (06:00→21:48)
[2021-08-31] MEDS: FAMOTIDINE (10MG/ML) 2ML VL IV SCH ×2 (09:25→21:48)
[2021-08-31] MEDS: ASPirin 81 mg TAB PO SCH (09:25)
[2021-08-31] MEDS: FUROSEMIDE 40 MG/4 ML VIAL IV SCH (09:25)
[2021-08-31] MEDS: SODIUM CHLOR 0.9% PF (SALINE LOCK) 10ML VIAL/SYR IV SCH ×2 (09:26→21:48)
[2021-08-31] MEDS: HEPARIN SODIUM (PORCINE) 5000 UNITS/ML 1ML VIAL SC SCH ×2 (10:00→21:39)
[2021-08-31] MEDS: QUEtiapine FUMARATE 25 MG TAB PO SCH ×2 (10:00→21:51)
[2021-08-31] MEDS ORDERED: amLODIPine BESYLATE 5 MG TAB PO ONE (13:30)
[2021-08-31] MEDS: niCARdipine 50 MG in SODIUM CHL 0.9% 230 ML IV SCH (15:09)
[2021-08-31] MEDS: MIDAZOLAM DRIP 50 mg/50mL 50 ML IV SCH (17:00)
[2021-08-31] MEDS: EPINEPHrine HCL 250 ML IV SCH (17:00)
[2021-08-31] MEDS: NOREPINEPHRINE 8 MG/250ML KIT 250 ML IV SCH (17:00)
[2021-08-31] MEDS ORDERED: SODIUM CHLORIDE IV NR ×9 (20:00)
[2021-08-31] MEDS ORDERED: [UNRECOGNIZED DRUG - OTHER] IV NR ×9 (20:00)
[2021-08-31] MEDS ORDERED: POTASSIUM CHLORIDE IV NR ×9 (20:00)
[2021-08-31] MEDS ORDERED: FAT EMULSION IV NR ×9 (20:00)
[2021-08-31] MEDS: cefTRIAXone 1GM/50ML D5W 50 ML IV SCH (21:48)
[2021-09-01] VITALS (103 sets, daily range): BP systolic 128–158; BP diastolic 50–79
[2021-09-01] MEDS: InsuLIN REG 1unit/0.01ml Soln (100units/ml) SC SCH ×4 (00:12→17:45)
[2021-09-01 05:08] LABS: Basophils # (auto) 0.1 10 ^3/uL (0-0.2); Basophils % (auto) 2.8 % (0.0-2.0); Eosinophils # (auto) 0.1 10 ^3/uL (0-0.8); Eosinophils % (auto) 2.5 % (0.0-7.0); Hematocrit 23.8 % (41.0-53.0); Hemoglobin 8.2 g/dL (13.5-17.5); Lymphocytes # (auto) 0.8 10 ^3/uL (0.4-5.4); Lymphocytes % (auto) 17.3 % (10.0-50.0); Mean Corpuscular Hemoglobin 30.2 pg (28.0-32.0); Mean Corpuscular Hgb Conc. 34.5 g/dL (32.0-36.0); Mean Corpuscular Volume 87.7 fL (80.0-100.0); Monocytes # (auto) 0.4 10 ^3/uL (0-1.3); Monocytes % (auto) 7.4 % (0.0-12.0); Neutrophils # (auto) 3.4 10 ^3/uL (1.6-8.6); Nucleated Red Blood Cells % 0.1 %; Red Blood Cells 2.72 10^6/uL (4.5-5.90); Red Cell Distribution Width 15.7 % (11.8-14.3); White Blood Cell 4.9 10^3/uL (4.4-10.8)
[2021-09-01 05:29] LABS: Potassium 4.1 mmol/L (3.5-5.1)
[2021-09-01] MEDS: ACCU-CHEK COMFORT CURVE STRIP VI SCH ×3 (05:30→17:46)
[2021-09-01 05:33] LABS: Albumin 1.9 g/dL (3.4-5.0); BUN/Creatinine Ratio 23.2; Calcium 7.8 mg/dL (8.5-10.1); Magnesium 2.2 mg/dL (1.6-2.6)
[2021-09-01 05:36] LABS: Bilirubin, Total 0.1 mg/dL (0.2-1.0); Phosphorus 2.9 mg/dL (2.5-4.90); Total Protein 5.8 g/dL (6.4-8.2)
[2021-09-01] MEDS: VANCOMYCIN HCL 125MG/5ML ORAL SOL GT SCH ×4 (06:00→21:10)
[2021-09-01] MEDS: hydrALAZINE HCL 25 MG TAB PO SCH ×3 (06:00→17:52)
[2021-09-01] MEDS: FUROSEMIDE 40 MG/4 ML VIAL IV SCH (09:35)
[2021-09-01] MEDS: HEPARIN SODIUM (PORCINE) 5000 UNITS/ML 1ML VIAL SC SCH ×2 (09:36→21:20)
[2021-09-01] MEDS: FAMOTIDINE (10MG/ML) 2ML VL IV SCH ×2 (09:36→21:14)
[2021-09-01] MEDS: QUEtiapine FUMARATE 25 MG TAB PO SCH ×2 (09:36→22:00)
[2021-09-01] MEDS: amLODIPine BESYLATE 5 MG TAB PO SCH (09:37)
[2021-09-01] MEDS: ASPirin 81 mg TAB PO SCH (09:38)
[2021-09-01] MEDS: SODIUM CHLOR 0.9% PF (SALINE LOCK) 10ML VIAL/SYR IV SCH ×2 (09:38→21:14)
[2021-09-01] MEDS: PROPOFOL 100 ML IV SCH (11:45)
[2021-09-01] MEDS: niCARdipine 50 MG in SODIUM CHL 0.9% 230 ML IV SCH ×2 (12:05→17:56)
[2021-09-01] MEDS: NOREPINEPHRINE 8 MG/250ML KIT 250 ML IV SCH (17:00)
[2021-09-01] MEDS: MIDAZOLAM DRIP 50 mg/50mL 50 ML IV SCH (17:00)
[2021-09-01] MEDS: EPINEPHrine HCL 250 ML IV SCH (17:00)
[2021-09-01] MEDS ORDERED: [UNRECOGNIZED DRUG - OTHER] IV NR ×9 (20:00)
[2021-09-01] MEDS ORDERED: FAT EMULSION IV NR ×9 (20:00)
[2021-09-01] MEDS ORDERED: SODIUM CHLORIDE IV NR ×9 (20:00)
[2021-09-01] MEDS ORDERED: POTASSIUM CHLORIDE IV NR ×9 (20:00)
[2021-09-01] MEDS: cefTRIAXone 1GM/50ML D5W 50 ML IV SCH (21:09)
[2021-09-02] VITALS (107 sets, daily range): BP systolic 119–157; BP diastolic 59–77
[2021-09-02] MEDS: ACCU-CHEK COMFORT CURVE STRIP VI SCH ×5 (05:58→23:16)
[2021-09-02] MEDS: VANCOMYCIN HCL 125MG/5ML ORAL SOL GT SCH ×4 (05:58→21:34)
[2021-09-02] MEDS: hydrALAZINE HCL 25 MG TAB PO SCH ×5 (06:00→23:16)
[2021-09-02] MEDS: niCARdipine 50 MG in SODIUM CHL 0.9% 230 ML IV SCH ×3 (06:12→23:17)
[2021-09-02] MEDS: ACETYLCYSTEINE 20%(200MG/ML) SOL 4ML NEB PRN ×2 (06:15→14:12)
[2021-09-02] MEDS: InsuLIN REG 1unit/0.01ml Soln (100units/ml) SC SCH ×5 (06:50→23:16)
[2021-09-02] MEDS: ALBUTEROL SULF 2.5 MG/0.5ML(0.5%) NEB SOLN NEB PRN ×2 (08:35→14:11)
[2021-09-02] MEDS: QUEtiapine FUMARATE 25 MG TAB PO SCH ×2 (10:00→21:34)
[2021-09-02] MEDS: SODIUM CHLOR 0.9% PF (SALINE LOCK) 10ML VIAL/SYR IV SCH ×2 (10:00→21:34)
[2021-09-02] MEDS: HEPARIN SODIUM (PORCINE) 5000 UNITS/ML 1ML VIAL SC SCH ×2 (10:00→21:35)
[2021-09-02] MEDS: FUROSEMIDE 40 MG/4 ML VIAL IV SCH (10:00)
[2021-09-02] MEDS: ASPirin 81 mg TAB PO SCH (10:00)
[2021-09-02] MEDS: FAMOTIDINE (10MG/ML) 2ML VL IV SCH ×2 (10:00→21:34)
[2021-09-02] MEDS: amLODIPine BESYLATE 5 MG TAB PO SCH (10:00)
[2021-09-02 10:52] LABS: Calcium 7.9 mg/dL (8.5-10.1); Potassium 4.2 mmol/L (3.5-5.1)
[2021-09-02 10:57] LABS: Albumin 2.2 g/dL (3.4-5.0); BUN/Creatinine Ratio 29.1; Bilirubin, Total 0.3 mg/dL (0.2-1.0); Magnesium 2.6 mg/dL (1.6-2.6); Phosphorus 3.1 mg/dL (2.5-4.90); Total Protein 6.2 g/dL (6.4-8.2)
[2021-09-02] MEDS: PROPOFOL 100 ML IV SCH ×2 (16:10→23:00)
[2021-09-02] MEDS ORDERED: PROPOFOL 100 ML IV ONE (19:44)
[2021-09-02] MEDS ORDERED: TPN PER PHARMACY IV NR ×10 (20:00)
[2021-09-02] MEDS: cefTRIAXone 1GM/50ML D5W 50 ML IV SCH (21:00)
[2021-09-03] VITALS (100 sets, daily range): BP systolic 119–178; BP diastolic 59–82
[2021-09-03 05:37] LABS: Albumin 2.2 g/dL (3.4-5.0); Calcium 7.7 mg/dL (8.5-10.1); Magnesium 2.2 mg/dL (1.6-2.6); Potassium 4.2 mmol/L (3.5-5.1)
[2021-09-03 05:42] LABS: BUN/Creatinine Ratio 32.9; Bilirubin, Total 0.2 mg/dL (0.2-1.0); Phosphorus 3.6 mg/dL (2.5-4.90); Total Protein 6.2 g/dL (6.4-8.2)
[2021-09-03] MEDS: VANCOMYCIN HCL 125MG/5ML ORAL SOL GT SCH ×4 (06:00→21:45)
[2021-09-03] MEDS: ACCU-CHEK COMFORT CURVE STRIP VI SCH ×4 (06:00→23:12)
[2021-09-03] MEDS: InsuLIN REG 1unit/0.01ml Soln (100units/ml) SC SCH ×4 (06:00→23:12)
[2021-09-03] MEDS: ALBUTEROL SULF 2.5 MG/0.5ML(0.5%) NEB SOLN NEB PRN (06:40)
[2021-09-03] MEDS: ACETYLCYSTEINE 20%(200MG/ML) SOL 4ML NEB PRN (06:40)
[2021-09-03] MEDS: NOREPINEPHRINE 8 MG/250ML KIT 250 ML IV SCH ×2 (07:00→16:07)
[2021-09-03] MEDS: EPINEPHrine HCL 250 ML IV SCH ×2 (07:00→16:07)
[2021-09-03] MEDS: MIDAZOLAM DRIP 50 mg/50mL 50 ML IV SCH ×2 (07:00→16:07)
[2021-09-03] MEDS: niCARdipine 50 MG in SODIUM CHL 0.9% 230 ML IV SCH (08:16)
[2021-09-03] MEDS: FUROSEMIDE 40 MG/4 ML VIAL IV SCH (09:07)
[2021-09-03] MEDS: FAMOTIDINE (10MG/ML) 2ML VL IV SCH ×2 (09:08→21:45)
[2021-09-03] MEDS: QUEtiapine FUMARATE 25 MG TAB PO SCH ×2 (09:09→21:46)
[2021-09-03] MEDS: SODIUM CHLOR 0.9% PF (SALINE LOCK) 10ML VIAL/SYR IV SCH ×2 (09:09→21:45)
[2021-09-03] MEDS: HEPARIN SODIUM (PORCINE) 5000 UNITS/ML 1ML VIAL SC SCH ×2 (09:09→21:47)
[2021-09-03] MEDS: ASPirin 81 mg TAB PO SCH (09:09)
[2021-09-03] MEDS: amLODIPine BESYLATE 5 MG TAB PO SCH (09:09)
[2021-09-03] MEDS: hydrALAZINE HCL 25 MG TAB PO SCH ×3 (11:35→23:12)
[2021-09-03] MEDS ORDERED: FAT EMULSION IV NR ×11 (20:00)
[2021-09-03] MEDS ORDERED: SODIUM ACETATE IV NR ×11 (20:00)
[2021-09-03] MEDS ORDERED: [UNRECOGNIZED DRUG - OTHER] IV NR ×11 (20:00)
[2021-09-03] MEDS ORDERED: SODIUM PHOSPHATES IV NR ×11 (20:00)
[2021-09-03] MEDS: PROPOFOL 100 ML IV SCH (23:00)
[2021-09-04] VITALS (77 sets, daily range): BP systolic 135–185; BP diastolic 67–94
[2021-09-04] MEDS: LABETALOL HCL 5 MG/ML ML 20ML VIAL IV PRN (00:37)
[2021-09-04 05:50] LABS: Potassium 4.4 mmol/L (3.5-5.1)
[2021-09-04 06:00] LABS: Albumin 2.2 g/dL (3.4-5.0); BUN/Creatinine Ratio 33.8; Calcium 8.4 mg/dL (8.5-10.1); Magnesium 2.2 mg/dL (1.6-2.6)
[2021-09-04] MEDS: InsuLIN REG 1unit/0.01ml Soln (100units/ml) SC SCH ×3 (06:00→17:58)
[2021-09-04 06:03] LABS: Bilirubin, Total 0.1 mg/dL (0.2-1.0); Phosphorus 3.7 mg/dL (2.5-4.90); Total Protein 6.3 g/dL (6.4-8.2)
[2021-09-04] MEDS: VANCOMYCIN HCL 125MG/5ML ORAL SOL GT SCH ×4 (06:08→21:09)
[2021-09-04] MEDS: hydrALAZINE HCL 25 MG TAB PO SCH ×3 (06:09→18:00)
[2021-09-04] MEDS: ACCU-CHEK COMFORT CURVE STRIP VI SCH ×3 (06:09→18:00)
[2021-09-04] MEDS: SODIUM CHLOR 0.9% PF (SALINE LOCK) 10ML VIAL/SYR IV SCH ×2 (10:00→21:09)
[2021-09-04] MEDS: PROPOFOL 100 ML IV SCH (12:54)
[2021-09-04] MEDS: FUROSEMIDE 40 MG/4 ML VIAL IV SCH (13:11)
[2021-09-04] MEDS: ASPirin 81 mg TAB PO SCH (13:12)
[2021-09-04] MEDS: FAMOTIDINE (10MG/ML) 2ML VL IV SCH ×2 (13:12→21:09)
[2021-09-04] MEDS: QUEtiapine FUMARATE 25 MG TAB PO SCH ×2 (13:13→21:09)
[2021-09-04] MEDS: amLODIPine BESYLATE 5 MG TAB PO SCH (13:13)
[2021-09-04] MEDS: HEPARIN SODIUM (PORCINE) 5000 UNITS/ML 1ML VIAL SC SCH ×2 (13:14→21:10)
[2021-09-04] MEDS: NOREPINEPHRINE 8 MG/250ML KIT 250 ML IV SCH (17:00)
[2021-09-04] MEDS: EPINEPHrine HCL 250 ML IV SCH (17:00)
[2021-09-04] MEDS: MIDAZOLAM DRIP 50 mg/50mL 50 ML IV SCH (17:00)
[2021-09-04] MEDS ORDERED: TPN PER PHARMACY IV NR ×9 (20:00)
[2021-09-05] VITALS (54 sets, daily range): BP systolic 107–174; BP diastolic 42–85
[2021-09-05] MEDS: ACCU-CHEK COMFORT CURVE STRIP VI SCH ×4 (00:11→18:06)
[2021-09-05] MEDS: InsuLIN REG 1unit/0.01ml Soln (100units/ml) SC SCH ×4 (00:12→18:00)
[2021-09-05 05:18] LABS: Albumin 2.3 g/dL (3.4-5.0); Calcium 7.9 mg/dL (8.5-10.1); Magnesium 1.8 mg/dL (1.6-2.6); Potassium 4.4 mmol/L (3.5-5.1)
[2021-09-05 05:25] LABS: BUN/Creatinine Ratio 31.4; Bilirubin, Total 0.2 mg/dL (0.2-1.0); Phosphorus 3.3 mg/dL (2.5-4.90); Pre Albumin 27.2 mg/dL (20.0-40.0); Total Protein 6.4 g/dL (6.4-8.2)
[2021-09-05] MEDS: VANCOMYCIN HCL 125MG/5ML ORAL SOL GT SCH ×3 (05:33→18:00)
[2021-09-05] MEDS: hydrALAZINE HCL 25 MG TAB PO SCH ×4 (05:34→18:00)
[2021-09-05] MEDS: PROPOFOL 100 ML IV SCH (05:36)
[2021-09-05] MEDS: amLODIPine BESYLATE 5 MG TAB PO SCH (10:00)
[2021-09-05] MEDS: FAMOTIDINE (10MG/ML) 2ML VL IV SCH (11:03)
[2021-09-05] MEDS: FUROSEMIDE 40 MG/4 ML VIAL IV SCH (11:05)
[2021-09-05] MEDS: SODIUM CHLOR 0.9% PF (SALINE LOCK) 10ML VIAL/SYR IV SCH (11:06)
[2021-09-05] MEDS: HEPARIN SODIUM (PORCINE) 5000 UNITS/ML 1ML VIAL SC SCH (11:06)
[2021-09-05] MEDS: ASPirin 81 mg TAB PO SCH (11:07)
[2021-09-05] MEDS: QUEtiapine FUMARATE 25 MG TAB PO SCH (11:07)
[2021-09-05] MEDS ORDERED: LORazepam 2MG/ML-1ML VIAL IV PRN (12:15)
[2021-09-05] MEDS ORDERED: MORPHINE SULFATE INJECTION 2 MG/ML SYRG IV PRN (12:15)
[2021-09-05] MEDS: EPINEPHrine HCL 250 ML IV SCH (17:00)
[2021-09-05] MEDS: NOREPINEPHRINE 8 MG/250ML KIT 250 ML IV SCH (17:00)
[2021-09-05] MEDS: MIDAZOLAM DRIP 50 mg/50mL 50 ML IV SCH (17:00)
[2021-09-05] MEDS ORDERED: TPN PER PHARMACY IV NR ×10 (20:00)
[2021-09-06 05:00] VITALS: BP 147/83
[2021-09-06 06:21] LABS: Potassium 5.5 mmol/L (3.5-5.1)
[2021-09-06 06:26] LABS: Albumin 2.5 g/dL (3.4-5.0); BUN/Creatinine Ratio 36.5; Calcium 8.4 mg/dL (8.5-10.1); Magnesium 2.1 mg/dL (1.6-2.6)
[2021-09-06 06:28] LABS: Bilirubin, Total 0.3 mg/dL (0.2-1.0); Phosphorus 3.9 mg/dL (2.5-4.90); Total Protein 6.4 g/dL (6.4-8.2)
[2021-09-06 09:00] VITALS: BP 145/79
== END 2021-09-06 11:05 | DRG 130 ==
LOC: EDUNIT# 16:36 → EDBD 16:36 → ER 16:39 → OVERFLOW 23:16 → CATH ICU 08-15 20:43 → TELE 08-17 14:06 → CATH ICU 08-17 16:24 → DOU IN ICU 08-21 16:17 → TELE-EAST 09-05 20:33
PROVIDERS: ADMIT Nurse Practitioner Family; ATTEND Internal Medicine Geriatric Medicine
PROC: 5A1955Z Respiratory Ventilation, Greater than 96 Consecutive Hours (ICD-10-PCS; principal; 2021-08-14)
PROC: 0BH17EZ Insertion of Endotracheal Airway into Trachea, Via Natural or Artificial Opening (ICD-10-PCS; 2021-08-14)
PROC: 05HC33Z Insertion of Infusion Device into Left Basilic Vein, Percutaneous Approach (ICD-10-PCS; 2021-08-15)
PROC: B54NZZA Ultrasonography of Left Upper Extremity Veins, Guidance (ICD-10-PCS; 2021-08-15)
PROC: 02HV33Z Insertion of Infusion Device into Superior Vena Cava, Percutaneous Approach (ICD-10-PCS; 2021-08-18)
DX: J96.01 Acute respiratory failure with hypoxia (principal); I46.9 Cardiac arrest, cause unspecified; G93.6 Cerebral edema; N17.0 Acute kidney failure with tubular necrosis; I21.4 Non-ST elevation (NSTEMI) myocardial infarction; A04.72 Enterocolitis due to Clostridium difficile, not specified as recurrent; G93.41 Metabolic encephalopathy; E11.649 Type 2 diabetes mellitus with hypoglycemia without coma; E88.09 Other disorders of plasma-protein metabolism, not elsewhere classified; J98.11 Atelectasis; Z66 Do not resuscitate; F15.10 Other stimulant abuse, uncomplicated; D63.1 Anemia in chronic kidney disease; Z20.822 Contact with and (suspected) exposure to COVID-19; I50.22 Chronic systolic (congestive) heart failure; E87.3 Alkalosis; I13.0 Hypertensive heart and chronic kidney disease with heart failure and stage 1 through stage 4 chronic kidney disease, or unspecified chronic kidney disease; N18.31 Chronic kidney disease, stage 3a; G93.1 Anoxic brain damage, not elsewhere classified; E11.22 Type 2 diabetes mellitus with diabetic chronic kidney disease; E78.5 Hyperlipidemia, unspecified; K21.9 Gastro-esophageal reflux disease without esophagitis; R74.01 Elevation of levels of liver transaminase levels; R79.89 Other specified abnormal findings of blood chemistry; F17.210 Nicotine dependence, cigarettes, uncomplicated; I25.10 Atherosclerotic heart disease of native coronary artery without angina pectoris; Z51.5 Encounter for palliative care; Z79.4 Long term (current) use of insulin; I25.2 Old myocardial infarction; Z80.0 Family history of malignant neoplasm of digestive organs; Z83.3 Family history of diabetes mellitus; Z86.73 Personal history of transient ischemic attack (TIA), and cerebral infarction without residual deficits; Z99.11 Dependence on respirator [ventilator] status
CPT/HCPCS: 36415; 36569; 36600; 70450; 71045; 76775; 80048; 80053; 80076; 80307; 81001; 82040; 82306; 82550; 82570; 82805; 82962; 83735; 83970; 84100; 84156; 84300; 84478; 84484; 85007; 85025; 85027; 85610; 85730; 86803; 87040; 87070; 87205; 87426; 87493; 93005; 93970; 94002; 94003; 94640; 95819; 96365; 96367; 96368; 99291; A4618; G0378; J0171; J0696; J1815; J2250; J2704; J3490; J7060; J7131; P9047